=== PATIENT | male | born 1965 | race Caucasian/White ===

== ENCOUNTER 2016-08-14 16:36 | Emergency (ER) | payer SELFPAY ==
--- NOTE | 2016-08-14 17:09 | ER Document Report ---
ED Medical Screen (RME) - General Stated Complaint: LEFT RIB PAIN Notes: 50 yo male c/o left lateral chest wall pain x 2 weeks, worse x 2 days. no fever. no cough. + smoker, + HTN. TRAVEL OUTSIDE OF THE [place] IN LAST 30 DAYS: No - Related Data Allergies/Adverse Reactions: No Known Allergies Allergy (Unverified 02/07/15 22:49) Past Medical History - Past Medical History Cardiac Medical History: Reports: Hx Hypercholesterolemia, Hx Hypertension Pulmonary Medical History: Reports: Hx COPD Musculoskeltal Medical History: Reports Hx Musculoskeletal Trauma Psychiatric Medical History: Reports: Hx Depression Traumatic Medical History: Reports: Hx Fractures - both heels Past Surgical History: Reports: Hx Orthopedic Surgery - bilateral heel surgery, reattached thumb - Immunizations Immunizations up to date: No Hx Diphtheria, Pertussis, Tetanus Vaccination: No Physical Exam - Vital signs Vitals: Temp Pulse Resp BP Pulse Ox 97.6 F 51 L 18 157/88 H 98 08/14/16 16:59 08/14/16 16:59 08/14/16 16:59 08/14/16 16:59 08/14/16 16:59 Course - Vital Signs Vital signs: Temp Pulse Resp BP Pulse Ox 97.6 F 51 L 18 157/88 H 98 08/14/16 16:59 08/14/16 16:59 08/14/16 16:59 08/14/16 16:59 08/14/16 16:59
[2016-08-14] MEDS ORDERED: OXYCODONE-ACETAMINOPHEN 5-325 MG TABLET PO ONE (17:10)
[2016-08-14] MEDS ORDERED: HYDROCODONE/ACETAMINOPHEN 5-325 MG 6 TAB/DSPK PO PRN (19:36)
[2016-08-14] MEDS ORDERED: PREDNISONE 20 MG TABLET PO ONE (19:36)
--- NOTE | 2016-08-14 19:42 | ER Document Report ---
ED General - General Chief Complaint: Rib Pain Stated Complaint: LEFT RIB PAIN Mode of Arrival: Ambulatory Information source: Patient Notes: Patient is 50 yo male who presents with left anterior and lateral chest wall pain that has been present for the past 2 days, that worsened today. Pain is worse with deep inspiration, cough, sneezing. He has tried tylenol and ibuprofen with no relief. He endorses shortness of breath but no difficulty breathing, cough, fever, chills, wheezing. He endorses old injury to ribs years ago but no recent injury. Given percocet in triage which he states did provide some relief. TRAVEL OUTSIDE OF THE [place] IN LAST 30 DAYS: No - Related Data Allergies/Adverse Reactions: No Known Allergies Allergy (Verified 08/14/16 17:08) Past Medical History - Social History Smoking Status: Current Every Day Smoker Family History: Malignancy, DM, Reviewed & Not Pertinent - Past Medical History Cardiac Medical History: Reports: Hx Hypercholesterolemia, Hx Hypertension Pulmonary Medical History: Reports: Hx COPD Renal/ Medical History: Denies: Hx Peritoneal Dialysis Musculoskeltal Medical History: Reports Hx Musculoskeletal Trauma Psychiatric Medical History: Reports: Hx Depression Traumatic Medical History: Reports: Hx Fractures - both heels Past Surgical History: Reports: Hx Orthopedic Surgery - bilateral heel surgery, reattached thumb - Immunizations Immunizations up to date: No Hx Diphtheria, Pertussis, Tetanus Vaccination: No Review of Systems - Review of Systems Constitutional: No symptoms reported EENT: No symptoms reported Cardiovascular: See HPI Respiratory: No symptoms reported Gastrointestinal: No symptoms reported Genitourinary: No symptoms reported Male Genitourinary: No symptoms reported Musculoskeletal: No symptoms reported Skin: No symptoms reported Hematologic/Lymphatic: No symptoms reported Neurological/Psychological: No symptoms reported Physical Exam - Vital signs Vitals: Temp Pulse Resp BP Pulse Ox 97.6 F 51 L 18 157/88 H 98 08/14/16 16:59 08/14/16 16:59 08/14/16 16:59 08/14/16 16:59 08/14/16 16:59 Interpretation: Hypertensive - Notes Notes: PHYSICAL EXAM: CONSTITUTIONAL: Alert and oriented, well-appearing and in no acute distress. HENT: Normocephalic, atraumatic. Moist mucous membranes. HEART: Regular rate and rhythm without murmurs. LUNGS: CTAB and equal. No wheezes, rales or rhonchi. Chest wall tenderness to palpation in left mid-axillary and mid-clavicular line. EXTREMITIES: Normal range of motion, no pitting edema. No cyanosis. Cap Refill < 3 seconds. NEURO: Cranial nerves grossly intact. Normal sensory/motor exams. SKIN: Warm and dry. Normal turgor. No rashes or lesions noted. Course - Re-evaluation Re-evalutation: 08/14/16 19:39 Patient seen and examined. Chest wall tenderness with normal vital signs and no respiratory distress on exam. Lungs CTAB with breath sounds equal throughout. Xray negative for pneumothorax, acute rib or displaced rib fractures. Patient requesting pain medication. Low suspicion for cardiac source of chest pain based on exam. Discussed return precautions, given take-home pain medications and dose of steroids here. Discharged home in stable condition. Follow-up with PMD. Patient verbally agrees, all questions answered. - Vital Signs Vital signs: Temp Pulse Resp BP Pulse Ox 97.6 F 51 L 18 157/88 H 98 08/14/16 16:59 08/14/16 16:59 08/14/16 16:59 08/14/16 16:59 08/14/16 16:59 - Diagnostic Test Radiology reviewed: Image reviewed, Reports reviewed Discharge - Discharge Clinical Impression: Costochondritis, acute, Chest wall pain Condition: Stable Disposition: HOME, SELF-CARE Additional Instructions: Costochondritis Your chest pain is coming from the rib cartilages in the chest wall. This is often caused by subtle straining of the ribs near the breastbone. The strain can occur from a mild injury, coughing or sneezing with a "cold," vigorous vomiting, or even from rib compression while sleeping. Often the pain doesn't begin until a couple of days after the strain. Persons with arthritis are especially prone to this type of pain, due to inflammation of the cartilage joints near the breast bone. But often, there is no clear reason why it happens. Rest from strenuous physical activity. This kind of chest pain is usually made worse by movement of the chest. Depending on the symptoms, we may prescribe medicine for pain and inflammation. Apply gentle warmth to the painful area for 15 minutes every hour or two. You should call contact the doctor immediately if things change. Further evaluation is needed if you develop a fever or cough, if the nature of the pain changes, or if you become short of breath. Oral Narcotic Medication You have been given a prescription for pain control. This medication is a narcotic. It's best taken with food, as nausea can result if taken on an empty stomach. Don't operate machinery or drive within six hours of taking this medication. Do not combine this medicine with alcohol, or with any medication which can cause sedation (such as cold tablets or sleeping pills) unless you get permission from the physician. Narcotics tend to cause constipation. If possible, drink plenty of fluids and eat a diet high in fiber and fruits. STEROID MEDICATION: You have been given a medicine of the cortisone/steroid class. This medication is used to control inflammation or allergy. It is usually only given for a short period of time, until the acute process subsides. There are usually no side effects from short-term use of cortisone-like medications. Some persons feel an increased sense of well-being and are not sleepy at bedtime. Long-term use of cortisone medications is best avoided, unless required for a severe condition. If your condition does not remit, or relapses after the course of corticosteroid medication, you should consult your physician. Return immediately for any new or worsening symptoms. Follow-up with primary care provider, call tomorrow to make followup appointment. Prescriptions: Hydrocodone/Acetaminophen [Vicodin 5-300 mg Tablet] 1 tab PO ASDIR PRN #15 tab PRN Reason: Naproxen [Naprosyn 250 mg Tablet] 500 mg PO DAILY PRN #14 tablet PRN Reason: Prednisone [Deltasone 20 mg Tablet] 3 tab PO DAILY 5 Days Forms: Elevated Blood Pressure
[2016-08-14 20:15] VITALS: BP 158/80
== END 2016-08-14 20:12 | disposition home or self-care (01) ==
LOC: ER 16:36
DX: M94.0 Chondrocostal junction syndrome [Tietze] (principal); R07.89 Other chest pain; R06.02 Shortness of breath; I10 Essential (primary) hypertension; J44.9 Chronic obstructive pulmonary disease, unspecified; F17.200 Nicotine dependence, unspecified, uncomplicated; Z87.828 Personal history of other (healed) physical injury and trauma
CPT/HCPCS: 99283; 71101; J7512

== ENCOUNTER 2016-08-18 12:24 | Emergency (ER) | payer SELFPAY ==
--- NOTE | 2016-08-18 12:32 | ER Document Report ---
ED Medical Screen (RME) - General Stated Complaint: RIB PAIN Mode of Arrival: Ambulatory Information source: Patient Notes: pt presents to the ED with continued left rib pain. Reports he was seen last week dx with costrocondritis. Was treated with anti-inflammatory steroids and pain medication. Reports woke this am with SOB, still having pain. Denies f/v/ d. Also worried about HTN. Left lateral/ant. ribs ttp. No obvious SOB. I have consulted the attending provider per [facility] guidelines I have greeted and performed a rapid initial assessment of this patient. A comprehensive ED assessment and evaluation of the patient, analysis of test results and completion of the medical decision making process will be conducted by additional ED providers. TRAVEL OUTSIDE OF THE [place] IN LAST 30 DAYS: No - Related Data Allergies/Adverse Reactions: No Known Allergies Allergy (Verified 08/18/16 12:32) Past Medical History - Past Medical History Cardiac Medical History: Reports: Hx Hypercholesterolemia, Hx Hypertension Pulmonary Medical History: Reports: Hx COPD Renal/ Medical History: Denies: Hx Peritoneal Dialysis Musculoskeltal Medical History: Reports Hx Musculoskeletal Trauma Psychiatric Medical History: Reports: Hx Depression Traumatic Medical History: Reports: Hx Fractures - both heels Past Surgical History: Reports: Hx Orthopedic Surgery - bilateral heel surgery, reattached thumb - Immunizations Immunizations up to date: No Hx Diphtheria, Pertussis, Tetanus Vaccination: No Physical Exam - Vital signs Vitals: Temp Pulse Resp BP Pulse Ox 98.0 F 60 24 H 155/96 H 97 08/18/16 12:34 08/18/16 12:34 08/18/16 12:34 08/18/16 12:34 08/18/16 12:34 Course - Vital Signs Vital signs: Temp Pulse Resp BP Pulse Ox 98.0 F 60 24 H 155/96 H 97 08/18/16 12:34 08/18/16 12:34 08/18/16 12:34 08/18/16 12:34 08/18/16 12:34
[2016-08-18 13:08] LABS: ABSOLUTE BASOPHILS # (AUTO) 0.1 10^3/uL (0.0-0.2); ABSOLUTE EOSINOPHILS # (AUTO) 0.1 10^3/uL (0.0-0.6); ABSOLUTE LYMPHOCYTES (AUTO) 2.1 10^3/uL (0.5-4.7); ABSOLUTE MONOCYTES (AUTO) 0.8 10^3/uL (0.1-1.4); ABSOLUTE NEUT (AUTO) 10.2 10^3/uL (1.7-8.2); BASOPHILS % (AUTO) 0.4 % (0-2); EOSINOPHILS % (AUTO) 0.5 % (0-6); HEMATOCRIT 42.3 % (37.9-51.0); HEMOGLOBIN 14.2 g/dL (13.5-17.0); HGB HCT DIFFERENCE 0.3; LYMPHOCYTES % (AUTO) 16.2 % (13-45); MEAN CORPUSCULAR HEMOGLOBIN 32.5 pg (27.0-33.4); MEAN CORPUSCULAR HGB CONC 33.7 g/dL (32.0-36.0); MEAN CORPUSCULAR VOLUME 97 fl (80-97); MONOCYTES % (AUTO) 6.4 % (3-13); RED BLOOD COUNT 4.38 10^6/uL (4.35-5.55); RED CELL DISTRIBUTION WIDTH 14.9 % (11.5-14.0); SEGMENTED NEUTROPHILS % (AUTO) 76.5 % (42-78); WHITE BLOOD COUNT 13.3 10^3/uL (4.0-10.5)
[2016-08-18] MEDS ORDERED: KETOROLAC TROMETHAMINE 60 MG/2 ML SDV IM ONE (13:24)
[2016-08-18] MEDS ORDERED: CYCLOBENZAPRINE HCL 10 MG TABLET PO ONE (13:24)
[2016-08-18 13:26] LABS: ALANINE AMINOTRANSFERASE 81 U/L (21-72); ALBUMIN 3.7 g/dL (3.5-5.0); ALKALINE PHOSPHATASE 58 U/L (38-126); ANION GAP 9 (5-19); ASPARTATE AMINO TRANSFERASE 35 U/L (17-59); BILIRUBIN,TOTAL 0.3 mg/dL (0.2-1.3); BLOOD UREA NITROGEN 23 mg/dL (7-20); CALCIUM 9.3 mg/dL (8.4-10.2); CARBON DIOXIDE 29 mmol/L (22-30); CHLORIDE 109 mmol/L (98-107); CREATINE KINASE 35 U/L (55-170); CREATININE RESULT 0.72 mg/dL (0.52-1.25); GLUCOSE 136 mg/dL (75-110); POTASSIUM 4.1 mmol/L (3.6-5.0); SODIUM 146.5 mmol/L (137-145); TOTAL PROTEIN 5.9 g/dL (6.3-8.2)
--- NOTE | 2016-08-18 13:28 | ER Document Report ---
ED General - General Chief Complaint: Rib Pain Stated Complaint: RIB PAIN Mode of Arrival: Ambulatory Information source: Patient Notes: This is a 50 year old male who returns to the ER for re-evaluation of left ribcage pain which has been present for the past week. He was seen here for same on 08/14 and diagnosed with costochondritis, treated with pain meds, naprosyn , and steroids. He states that he awoke today with increased pain to left anterolateral ribcage, and shortness of breath. He is concerned that he may have pneumonia. No fevers, chills. No sputum production. Some pleuritic pain. Area is very tender to the touch per patient. He has run out of his pain medications and does not have a primary physician, and he is requesting more pain medication today. He states that he had a friend given him a "bear hug" last week and he suspects that this may have aggravated an old rib injury on that left side. 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 TRAVEL OUTSIDE OF THE [place] IN LAST 30 DAYS: No - Related Data Allergies/Adverse Reactions: No Known Allergies Allergy (Verified 08/18/16 12:32) Past Medical History - General Information source: Patient - Social History Smoking Status: Current Every Day Smoker Chew tobacco use (# tins/day): No Frequency of alcohol use: None Drug Abuse: None Family History: Malignancy, DM, Reviewed & Not Pertinent Patient has suicidal ideation: No Patient has homicidal ideation: No - Past Medical History Cardiac Medical History: Reports: Hx Hypercholesterolemia, Hx Hypertension Pulmonary Medical History: Reports: Hx COPD Renal/ Medical History: Denies: Hx Peritoneal Dialysis Musculoskeltal Medical History: Reports Hx Musculoskeletal Trauma Psychiatric Medical History: Reports: Hx Depression Traumatic Medical History: Reports: Hx Fractures - both heels Past Surgical History: Reports: Hx Orthopedic Surgery - bilateral heel surgery, reattached thumb - Immunizations Immunizations up to date: No Hx Diphtheria, Pertussis, Tetanus Vaccination: No Review of Systems - Review of Systems Notes: REVIEW OF SYSTEMS: CONSTITUTIONAL : Denies fever, chills, or sweats. Denies recent illness. EENT: Denies eye, ear, throat, or mouth pain or symptoms. Denies nasal or sinus congestion. CARDIOVASCULAR: As per HPI. No palpitations. No syncope/near syncope. RESPIRATORY: Denies cough, cold, or chest congestion. Denies difficulty breathing, or wheezing. Endorses some shortness of breath as per HPI GASTROINTESTINAL: Denies abdominal pain. Denies nausea, vomiting, or diarrhea. Denies constipation. GENITOURINARY: Denies difficulty urinating, painful urination, burning, frequency, or blood in urine. MUSCULOSKELETAL: Denies neck or back pain or joint pain or swelling. SKIN: Denies rash or skin lesions. HEMATOLOGIC : Denies easy bruising or bleeding. LYMPHATIC: Denies swollen, enlarged glands. NEUROLOGICAL: Denies altered mental status or loss of consciousness. Denies headache. PSYCHIATRIC: Denies anxiety or stress or depression. ALL OTHER SYSTEMS REVIEWED AND NEGATIVE. Physical Exam - Vital signs Vitals: Temp Pulse Resp BP Pulse Ox 98.0 F 60 24 H 155/96 H 97 08/18/16 12:34 08/18/16 12:34 08/18/16 12:34 08/18/16 12:34 08/18/16 12:34 - Notes Notes: PHYSICAL EXAMINATION: GENERAL: Well-appearing, well-nourished and in no acute distress. Pleasant and very conversant, no conversational dyspnea HEAD: Atraumatic, normocephalic. EYES: Pupils equal round and reactive to light, extraocular movements intact, sclera anicteric, conjunctiva are normal. ENT: nares patent, oropharynx clear without exudates. Moist mucous membranes. NECK: Normal range of motion, supple without lymphadenopathy LUNGS: Breath sounds clear to auscultation bilaterally and equal. No wheezes rales or rhonchi. HEART: Regular rate and rhythm without murmurs CHEST WALL: No rash or lesions. No erythema or discoloration. No edema or deformity. Exquisite TTP to left lateral ribcage. No crepitus. ABDOMEN: Soft, nontender, normoactive bowel sounds. No guarding, no rebound. No masses appreciated. No LUQ TTP EXTREMITIES: Normal range of motion, no pitting or edema. No cyanosis. NEUROLOGICAL: Cranial nerves grossly intact. Normal speech. No gross focal motor or sensory deficits appreciated PSYCH: Normal mood, somewhat anxious affect SKIN: Warm, Dry, normal turgor, no rashes or lesions noted. Course - Re-evaluation Re-evalutation: 08/18/16 14:25 Patient's history and exam is most consistent with musculoskeletal etiology of chest pain. However he does endorse shortness of breath. He does show some mild tachypnea today. Also this is his second visit in 4 days for the same complaints after being treated with pain medicine steroids in NSAIDs for costochondritis. For these reasons we will proceed with CT of the chest today to rule out underlying infiltrate or PE. I do not feel that his history or exam findings are consistent with a cardiac etiology of chest pain. 08/18/16 15:28 Patient states he would like to just go home and not proceed with CT at this time. I think this is reasonable at this point as he has no conversational dyspnea he has clear lung sounds he is not tachycardic and his tachypnea has resolved. He is requesting more Lortab but I did discuss with him that I would not be refilling his narcotic pain medication today. We did discuss nonnarcotic pain control options and will be discharged with anti-inflammatory medication as well as muscle relaxers. He is instructed to stop smoking and he is instructed to obtain a primary care physician to follow him and to monitor his blood pressure. Strict return precautions were discussed and he is comfortable with this plan. - Vital Signs Vital signs: Temp Pulse Resp BP Pulse Ox 98.0 F 60 24 H 155/96 H 97 08/18/16 12:34 08/18/16 12:34 08/18/16 12:34 08/18/16 12:34 08/18/16 12:34 - Laboratory Result Diagrams: 08/18/16 12:50 08/18/16 12:50 Laboratory results interpreted by me: 08/18/16 08/18/16 12:50 12:50 WBC 13.3 H RDW 14.9 H Absolute Neutrophils 10.2 H Sodium 146.5 H Chloride 109 H BUN 23 H Glucose 136 H ALT 81 H Creatine Kinase 35 L Total Protein 5.9 L - EKG Interpretation by Me Additional EKG results interpreted by me: 08/18/16 14:25 EKG at 1144 reviewed by me. EKG demonstrates sinus bradycardia with a rate of 46. QRS and QTC intervals are normal. I see no ischemic T-wave changes and there are no ST elevations or depressions. Discharge - Discharge Clinical Impression: Acute costochondritis, Elevated blood pressure reading Condition: Stable Disposition: HOME, SELF-CARE Additional Instructions: Costochondritis Your chest pain is coming from the rib cartilages in the chest wall. This is often caused by subtle straining of the ribs near the breastbone. The strain can occur from a mild injury, coughing or sneezing with a "cold," vigorous vomiting, or even from rib compression while sleeping. Often the pain doesn't begin until a couple of days after the strain. Persons with arthritis are especially prone to this type of pain, due to inflammation of the cartilage joints near the breast bone. But often, there is no clear reason why it happens. Rest from strenuous physical activity. This kind of chest pain is usually made worse by movement of the chest. Depending on the symptoms, we may prescribe medicine for pain and inflammation. Apply gentle warmth to the painful area for 15 minutes every hour or two. You should call contact the doctor immediately if things change. Further evaluation is needed if you develop a fever or cough, if the nature of the pain changes, or if you become short of breath. Muscle Relaxers Muscle relaxing medications are usually prescribed for acute muscle spasm or injury to the neck and back. They are often combined with antiinflammatory pain medication for increased relief. You may stop the muscle relaxer when the pain and stiffness have improved. Start the medication again if spasms recur. Muscle relaxers may cause drowsiness, especially with the first dose. Do not operate machinery or drive while under the effects of the medication. Most muscle relaxers last up to 24 hours. Do not combine the medication with alcohol. Pre-hypertension/Hypertension: The patient has been informed that they may have pre-hypertension or Hypertension based on a blood pressure reading in the emergency department. I recommend that the patient call the primary care provider listed on their dischargge instructions or a physician of their choice this wee to arrage follow up for further evaluation of possible pre- hypertension or Hypertension. If left untreated, high blood pressure greatly increases your risk of heart attack and stroke. Please don't ignore this problem. If you have blood pressure medicine but aren't using it regularly, start taking it again. Some simple things you can do to help are: Get some aerobic exercise for at least 20 minutes on a daily basis. (See your doctor before beginning any new exercise program.) Eat a low-fat diet. Lose excess weight. Avoid salty foods and avoid adding salt to any of the foods you eat. Avoid diet pills, decongestants, "energizing" herbs, and other medicines that elevate blood pressure. There are many different medicines that treat blood pressure. If your medication causes unpleasant side effects, call your doctor. There are others you can try. Treating hypertension is a life-long investment in your health. Prescriptions: Cyclobenzaprine HCl [Flexeril 10 mg Tablet] 10 mg PO TIDP PRN #15 tab PRN Reason: Tramadol HCl [Ultram 50 mg Tablet] 50 mg PO ASDIR PRN #12 tablet PRN Reason: Forms: Smoking Cessation Education, Elevated Blood Pressure
[2016-08-18] MEDS ORDERED: HYDROCODONE/ACETAMINOPHEN 5-325 MG TABLET PO ONE (14:19)
[2016-08-18 15:49] VITALS: BP 151/86
--- NOTE | 2016-08-18 20:15 | EKG REPORT ---
SEVERITY:- OTHERWISE NORMAL ECG - SINUS BRADYCARDIA : Confirmed by: Adele Moore 18-Aug-2016 20:15:04
== END 2016-08-18 15:49 | disposition home or self-care (01) ==
LOC: ER 12:24
DX: M94.0 Chondrocostal junction syndrome [Tietze] (principal); R07.81 Pleurodynia; J44.9 Chronic obstructive pulmonary disease, unspecified; R06.02 Shortness of breath; F17.200 Nicotine dependence, unspecified, uncomplicated; I10 Essential (primary) hypertension; R00.1 Bradycardia, unspecified
CPT/HCPCS: 93005; 99284; 96372; 36415; 82550; 85025; 80053; 71020; 93010; J1885

== ENCOUNTER 2016-08-21 08:52 | Emergency (ER) | payer SELFPAY ==
[2016-08-21] MEDS ORDERED: DIPH/PERTUSS(ACELL)/TETANUS VAC/PF 0.5 ML SYR (>=10YO) IM ONE (09:42)
[2016-08-21] MEDS ORDERED: HYDROCODONE/ACETAMINOPHEN 5-325 MG TABLET PO ONE (09:42)
[2016-08-21] MEDS ORDERED: CEPHALEXIN 500 MG CAPSULE PO ONE (09:43)
--- NOTE | 2016-08-21 09:44 | ER Document Report ---
HPI - HPI Patient complains to provider of: right second finger pain Onset: Yesterday Onset/Duration: Gradual Quality of pain: Achy Pain Level: 3 Context: Patient states that he started to develop painful swollen finger yesterday. Patient states that he squeezed on his right second finger and was able to remove to wooden splinters from his hand. 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 Patient additionally states that he was lifting heavy cement and developed right wrist tenderness after heavy lifting. Patient denies any fever. Patient is right- hand dominant. Associated Symptoms: Other - Right second finger pain. denies: Fever Exacerbated by: Movement Relieved by: Denies Similar symptoms previously: No Recently seen / treated by doctor: Yes - ROS ROS below otherwise negative: Yes Systems Reviewed and Negative: Yes All other systems reviewed and negative - CONSTITUTIONAL Constitutional: DENIES: Fever, Chills - NEURO Neurology: DENIES: Headache, Weakness - GASTROINTESTINAL Gastrointestinal: DENIES: Nausea - MUSCULOSKELETAL Musculoskeletal: REPORTS: Extremity pain - Right wrist, right second fing, Swelling - Right second finger - DERM Skin Color: Normal Skin Problems: Puncture Wound Past Medical History - General Information source: Patient - Social History Smoking Status: Current Every Day Smoker Chew tobacco use (# tins/day): No Frequency of alcohol use: None Drug Abuse: None Occupation: construction Lives with: Family Family History: Malignancy, DM, Reviewed & Not Pertinent Patient has suicidal ideation: No Patient has homicidal ideation: No - Past Medical History Cardiac Medical History: Reports: Hx Hypercholesterolemia, Hx Hypertension Pulmonary Medical History: Reports: Hx COPD Renal/ Medical History: Denies: Hx Peritoneal Dialysis Musculoskeltal Medical History: Reports Hx Musculoskeletal Trauma Psychiatric Medical History: Reports: Hx Depression Traumatic Medical History: Reports: Hx Fractures - both heels Past Surgical History: Reports: Hx Orthopedic Surgery - bilateral heel surgery, reattached thumb - Immunizations Immunizations up to date: No Hx Diphtheria, Pertussis, Tetanus Vaccination: No Vertical Provider Document - CONSTITUTIONAL Agree With Documented VS: Yes Exam Limitations: No Limitations General Appearance: WD/WN, No Apparent Distress - INFECTION CONTROL TRAVEL OUTSIDE OF THE [place] IN LAST 30 DAYS: No - HEENT HEENT: Atraumatic, Normocephalic - NECK Neck: Normal Inspection - RESPIRATORY Respiratory: No Respiratory Distress - CARDIOVASCULAR Pulses: Normal: Radial - MUSCULOSKELETAL/EXTREMETIES Musculoskeletal/Extremeties: ORLANDOSURI, Tender - Patient with tenderness along the volar aspect of right second finger PIP joint. Patient with overlying puncture wound and faint erythema. Patient with 1+ edema to right second digit. Patient with normal range of motion and strength to right second finger Notes: Patient with tenderness to right wrist overlying right distal radius. Normal skin color and temperature overlying this area. Tenderness increases with flexion and extension of right wrist. No deformity, no overt swelling - NEURO Level of Consciousness: Awake, Alert, Appropriate Motor/Sensory: No Motor Deficit, No Sensory Deficit - DERM Integumentary: Warm, Dry Course - Re-evaluation Re-evalutation: 08/21/16 09:[address] Fields, Dr. Fields to bedside for examination. Recommends ultrasound imaging of the extremity and coverage with Keflex for infection. Recommends outpatient warm soaks and follow-up with orthopedic DrOralia for any continued problems - Diagnostic Test Radiology reviewed: Reports reviewed Discharge - Discharge Clinical Impression: Tendonitis Cellulitis Qualifiers: Site of cellulitis: extremity Site of cellulitis of extremity: upper extremity Laterality: right Qualified Code(s): L03.113 - Cellulitis of right upper limb Condition: Stable Disposition: HOME, SELF-CARE Additional Instructions: Return immediately for any new or worsening symptoms Followup with your primary care provider, call tomorrow to make a followup appointment Follow up with orthopedic DrOralia for any continued pain or problems Soak hand frequently in warm soapy water Your blood pressure was elevated today, your primary doctor can get you started back on your medications, call them tomorrow for follow-up appointment. CELLULITIS: You have an infection of your skin and underlying soft tissues called cellulitis. This is due to bacteria, which can enter through any break in the skin, or even through an irritated hair follicle. Untreated, cellulitis will usually worsen. Antibiotics are required. Usually, warm packs or warm soaks, and elevation of the infected area are recommended. You should start getting better within 24 to 36 hours. Most infections respond quickly to the right medication. Follow-up care is important, however, to check for abscess (boil) formation, unsuspected foreign body, or resistant infection. If you develop fever, chills, or if the area of infection is becoming rapidly more swollen or painful, call the doctor at once. ANTIBIOTIC THERAPY: You have been given an antibiotic prescription. It's important that you take all the medication, unless instructed otherwise by your physician. Failure to complete the entire course can result in relapse of your condition. Common side effects of antibiotics include nausea, intestinal cramping, or diarrhea. Women may develop vaginal yeast infections, and babies can get yeast (thrush) in the mouth following the use of antibiotics. Contact your physician if you develop significant side effects from this medication. Allergy to this antibiotic can result in hives, wheezing, faintness, or itching. If symptoms of allergy occur, stop the medication and call the doctor. ORAL NARCOTIC MEDICATION: You have been given a prescription for pain control. This medication is a narcotic. It's best taken with food, as nausea can result if taken on an empty stomach. Don't operate machinery or drive within six hours of taking this medication. Do not combine this medicine with alcohol, or with any medication which can cause sedation (such as cold tablets or sleeping pills) unless you get permission from the physician. Narcotics tend to cause constipation. If possible, drink plenty of fluids and eat a diet high in fiber and fruits. Please be aware that prescription narcotics also have the potential for abuse. People become addicted to these medications because of the general sense of wellbeing that they induce. This feeling along with a significant reduction in tension, anxiety, and aggression provides a stimulating seductive quality to these drugs. Once your pain is under control, we encourage you to discard your unused narcotics. FOLLOW-UP CARE: If you have been referred to a physician for follow-up care, call the physician s office for an appointment as you were instructed or within the next two days. If you experience worsening or a significant change in your symptoms, notify the physician immediately or return to the Emergency Department at any time for re-evaluation. Prescriptions: Cephalexin Monohydrate [Keflex 500 mg Capsule] 500 mg PO Q6H 7 Days Hydrocodone/Acetaminophen [[place] 5-325 Tablet] 1 each PO Q4 PRN #12 tablet PRN Reason: Forms: Return to Work, Elevated Blood Pressure Referrals: [facility] [Provider Group] - Follow up as needed [facility] [Provider Group] - Follow up as needed [facility] [Provider Group] - Follow up tomorrow
[2016-08-21 11:27] VITALS: BP 145/80
== END 2016-08-21 11:26 | disposition home or self-care (01) ==
LOC: ER 08:52
DX: S61.230A Puncture wound without foreign body of right index finger without damage to nail, initial encounter (principal); L03.113 Cellulitis of right upper limb; X58.XXXA Exposure to other specified factors, initial encounter; M77.9 Enthesopathy, unspecified; M25.531 Pain in right wrist; X50.0XXA Overexertion from strenuous movement or load, initial encounter; I10 Essential (primary) hypertension; J44.9 Chronic obstructive pulmonary disease, unspecified; F17.200 Nicotine dependence, unspecified, uncomplicated
CPT/HCPCS: 76882; 90471; 90715; 99283

== ENCOUNTER 2016-09-15 14:03 | Emergency (ER) | payer SELFPAY ==
[2016-09-15] MEDS ORDERED: LIDOCAINE 5% (700 MG) TRANSDERMAL ADH..PATCH TP ONE (14:50)
[2016-09-15 15:59] VITALS: BP 144/89
--- NOTE | 2016-09-15 16:25 | ER Document Report ---
ED General - General Chief Complaint: Rib Pain Stated Complaint: RIB PAIN TRAVEL OUTSIDE OF THE [place] IN LAST 30 DAYS: No - HPI Patient complains to provider of: left rib pain Notes: Chronic left for pain ongoing for a month acute injury recently when patient was given a bear hug by his friend. Patient denies any other complaints. Patient is also concerned about his blood pressure state has been reading high several doctor's visits and will be started on medication. Patient denies any shortness of breath nausea vomiting dizziness. - Related Data Allergies/Adverse Reactions: No Known Allergies Allergy (Verified 09/15/16 14:08) Past Medical History - Social History Smoking Status: Current Every Day Smoker Chew tobacco use (# tins/day): - 30 Frequency of alcohol use: None Drug Abuse: None Family History: Malignancy, DM, Reviewed & Not Pertinent Patient has suicidal ideation: No Patient has homicidal ideation: No - Past Medical History Cardiac Medical History: Reports: Hx Hypercholesterolemia, Hx Hypertension Pulmonary Medical History: Reports: Hx COPD Renal/ Medical History: Denies: Hx Peritoneal Dialysis Musculoskeltal Medical History: Reports Hx Musculoskeletal Trauma Psychiatric Medical History: Reports: Hx Depression Traumatic Medical History: Reports: Hx Fractures - both heels Past Surgical History: Reports: Hx Orthopedic Surgery - bilateral heel surgery, reattached thumb - Immunizations Immunizations up to date: No Hx Diphtheria, Pertussis, Tetanus Vaccination: No Review of Systems - Review of Systems Constitutional: No symptoms reported EENT: No symptoms reported Cardiovascular: Other - Rib pain Respiratory: No symptoms reported Gastrointestinal: No symptoms reported Genitourinary: No symptoms reported Male Genitourinary: No symptoms reported Musculoskeletal: No symptoms reported Skin: No symptoms reported Hematologic/Lymphatic: No symptoms reported Neurological/Psychological: No symptoms reported -: Yes All other systems reviewed and negative Physical Exam - Vital signs Vitals: Temp Pulse Resp BP Pulse Ox 98.3 F 71 13 159/93 H 97 09/15/16 14:06 09/15/16 14:06 09/15/16 14:06 09/15/16 14:06 09/15/16 14:06 Interpretation: Normal - General General appearance: Appears well, Alert - HEENT Head: Normocephalic, Atraumatic Eyes: Normal Pupils: PERRL - Respiratory Respiratory status: No respiratory distress Chest status: Tender - Tenderness to palpation of ribs #6 and 7 lateral side of the left chest. No other areas of tenderness or pain. No signs of trauma Breath sounds: Normal Chest palpation: Normal - Cardiovascular Rhythm: Regular Heart sounds: Normal auscultation Murmur: No - Abdominal Inspection: Normal Distension: No distension Bowel sounds: Normal Tenderness: Nontender Organomegaly: No organomegaly - Back Back: Normal, Nontender - Extremities General upper extremity: Normal inspection, Nontender, Normal color, Normal ROM , Normal temperature General lower extremity: Normal inspection, Nontender, Normal color, Normal ROM , Normal temperature, Normal weight bearing. No: Angella's sign - Neurological Neuro grossly intact: Yes Cognition: Normal Orientation: AAOx4 Rolanda Coma Scale Eye Opening: Spontaneous Rolanda Coma Scale Verbal: Oriented Rolanda Coma Scale Motor: Obeys Commands [place] Coma Scale Total: 15 Speech: Normal Motor strength normal: LUE, RUE, LLE, RLE Sensory: Normal - Psychological Associated symptoms: Normal affect, Normal mood - Skin Skin Temperature: Warm Skin Moisture: Dry Skin Color: Normal Course - Re-evaluation Re-evalutation: 09/15/16 16:26 X-rays negative. Patient's narcotic database does show the patient received Salix's on August 15 tramadol on August 18 Vicodin on August 21 and Vicodin on September 04. Explained to patient that this is concerning will give the patient some tramadol and Neurontin as patient may have a neuroma. Explained to patient that he has chronic condition will need follow-up her primary care physician for further evaluation. Also stated to patient he will need a follow- up primary care physician for further evaluation of his blood pressure. No other interval etiology seen patient will be discharged home - Vital Signs Vital signs: Temp Pulse Resp BP Pulse Ox 98 F 59 L 20 144/89 H 98 09/15/16 15:59 09/15/16 15:59 09/15/16 15:59 09/15/16 15:59 09/15/16 15:59 Discharge - Discharge Clinical Impression: Rib contusion Qualifiers: Encounter type: initial encounter Laterality: left Qualified Code(s): S20.212A - Contusion of left front wall of thorax, initial encounter Condition: Good Disposition: HOME, SELF-CARE Instructions: Rib Contusion ([facility]), Rib Injuries and Fractures ([facility]), Chronic Pain Control ([facility]) Additional Instructions: Please take medication as prescribed. These follow-up with your primary care physician or physicians provided to further manage her elevated blood pressure. Prescriptions: Gabapentin [Neurontin 100 mg Capsule] 100 mg PO Q12 #60 capsule Tramadol HCl [Ultram 50 mg Tablet] 50 mg PO ASDIR PRN #20 tablet PRN Reason: Forms: Elevated Blood Pressure Referrals: ANTOLIN HUSTON MD [Primary Care Provider] - Follow up in 3-5 days
== END 2016-09-15 16:10 | disposition home or self-care (01) ==
LOC: ER 14:03
DX: S20.212A Contusion of left front wall of thorax, initial encounter (principal); X58.XXXA Exposure to other specified factors, initial encounter; F17.200 Nicotine dependence, unspecified, uncomplicated; I10 Essential (primary) hypertension; J44.9 Chronic obstructive pulmonary disease, unspecified
CPT/HCPCS: 99283

== ENCOUNTER 2016-12-08 12:40 | Emergency (ER) | payer SELFPAY ==
--- NOTE | 2016-12-08 13:05 | ER Document Report ---
ED GI/ - General Chief Complaint: STD Exposure Stated Complaint: POSSIBLE RASH Time Seen by Provider: 12/08/16 12:50 Mode of Arrival: Ambulatory Information source: Patient TRAVEL OUTSIDE OF THE [place] IN LAST 30 DAYS: No - HPI Patient complains to provider of: Other - penile discharge Timing/Duration: Sudden Quality of pain: Achy Pain Level: 1 Sexual history: New partner, Unprotected intercourse Associated symptoms: Penile discharge Exacerbated by: Denies Relieved by: Denies Similar symptoms previously: No Recently seen / treated by doctor: No Notes: 12/08/16 14:22 Patient is a 50-year-old male who presents to the emergency room complaining of rash to the groin area with creamy white penile discharge that he noted today, denies dysuria or hematuria, no nausea, vomiting or diarrhea, no history of similar symptoms previously, he does report a new sexual partner that he had unprotected sex with over the past few months - Related Data Allergies/Adverse Reactions: No Known Allergies Allergy (Verified 12/08/16 12:45) Past Medical History - General Information source: Patient - Social History Smoking Status: Current Every Day Smoker Family History: Malignancy, DM, Reviewed & Not Pertinent Patient has suicidal ideation: No Patient has homicidal ideation: No - Past Medical History Cardiac Medical History: Reports: Hx Hypercholesterolemia, Hx Hypertension Pulmonary Medical History: Reports: Hx COPD Renal/ Medical History: Denies: Hx Peritoneal Dialysis Musculoskeltal Medical History: Reports Hx Musculoskeletal Trauma Psychiatric Medical History: Reports: Hx Depression Traumatic Medical History: Reports: Hx Fractures - both heels Past Surgical History: Reports: Hx Orthopedic Surgery - bilateral heel surgery, reattached thumb - Immunizations Immunizations up to date: No Hx Diphtheria, Pertussis, Tetanus Vaccination: No Review of Systems - Review of Systems Constitutional: No symptoms reported EENT: No symptoms reported Cardiovascular: No symptoms reported Respiratory: No symptoms reported Gastrointestinal: No symptoms reported Genitourinary: No symptoms reported Male Genitourinary: Penile discharge Musculoskeletal: No symptoms reported Skin: See HPI Hematologic/Lymphatic: No symptoms reported Neurological/Psychological: No symptoms reported -: Yes All other systems reviewed and negative Physical Exam - Vital signs Vitals: Temp Pulse Resp BP Pulse Ox 98.6 F 65 18 182/95 H 97 12/08/16 12:45 12/08/16 12:45 12/08/16 12:45 12/08/16 12:45 12/08/16 12:45 - Notes Notes: - General General appearance: Appears well, Alert In distress: None - HEENT Head: Normocephalic, Atraumatic Eyes: Normal Conjunctiva: Normal Extraocular movements intact: Yes Eyelashes: Normal Pupils: PERRL - Respiratory Respiratory status: No respiratory distress - Cardiovascular Rhythm: Regular - Abdominal Inspection: Normal - Back Back: Normal - Extremities General upper extremity: Normal inspection General lower extremity: Normal inspection - Neurological Neuro grossly intact: Yes Orientation: AAOx4 Percival Coma Scale Eye Opening: Spontaneous Percival Coma Scale Verbal: Oriented Rolanda Coma Scale Motor: Obeys Commands Rolanda Coma Scale Total: 15 - Psychological Associated symptoms: Normal affect, Normal mood - Skin Skin Temperature: Warm Skin Moisture: Dry Skin Color: Normal - Genitourinary Inspection: Normal. No: Blood at meatus, Penile discharge Scrotum: Normal - Skin Location of irregularity: Other - Bilateral upper leg with erythematous, slightly indurated rash, no vesicles, no drainage, no tenderness Course - Re-evaluation Re-evalutation: 12/08/16 14:46 Laboratory results were discussed with patient at bedside which were positive for gonorrhea, patient was appropriately treated and advised to have any partners tested and treated prior to resuming intercourse, patient was provided with a list of mental health providers in the area as well as he reports increased stressors and anxiety, he was advised to return if any additional concerns, patient acknowledges understanding and agreement with this plan - Vital Signs Vital signs: Temp Pulse Resp BP Pulse Ox 98.6 F 65 18 182/95 H 97 12/08/16 12:45 12/08/16 12:45 12/08/16 12:45 12/08/16 12:45 12/08/16 12:45 - Laboratory Laboratory results interpreted by me: 12/08/16 12:50 N.gonorrhoeae DNA (PCR) DETECTED H Discharge - Discharge Clinical Impression: Gonorrhea Condition: Stable Instructions: Gonorrhea ([facility]) Additional Instructions: Follow up with your primary care provider in one to 2 days. Return to the emergency room immediately if symptoms worsen or any additional concerns. All sexual partners tested and treated prior to resuming sexual intercourse. Always practice safe sex and use a condom. Prescriptions: Clotrimazole [Itch Relief] 15 gm TP BID #1 cream..g.
[2016-12-08 14:38] LABS: CHLAM PCR NOT DETECTED (NOT DETECT)
[2016-12-08] MEDS ORDERED: AZITHROMYCIN 250 MG TABLET PO ONE (14:46)
[2016-12-08] MEDS ORDERED: CEFTRIAXONE INJ 250 MG VIAL IM ONE (14:46)
[2016-12-08 15:20] VITALS: BP 171/92
== END 2016-12-08 15:24 | disposition home or self-care (01) ==
LOC: ER 12:40
DX: A54.9 Gonococcal infection, unspecified (principal); R21 Rash and other nonspecific skin eruption; I10 Essential (primary) hypertension; J44.9 Chronic obstructive pulmonary disease, unspecified; F17.200 Nicotine dependence, unspecified, uncomplicated
CPT/HCPCS: 99283; 96372; 87491; 87591; J0696

== ENCOUNTER 2016-12-14 04:49 | Emergency (ER) | payer SELFPAY ==
--- NOTE | 2016-12-14 06:49 | ER Document Report ---
ED General - General Chief Complaint: STD Exposure Stated Complaint: POSSIBLE STD Time Seen by Provider: 12/14/16 06:10 Mode of Arrival: Ambulatory Information source: Patient Notes: 50-year-old male who is diagnosed with gonorrhea 6 days ago and treated at that time presents with complaints that he was looking online and believes that he may have a resistant strain of gonorrhea and that it may be taking over his whole body. Patient also notes that he is quite stressed out TRAVEL OUTSIDE OF THE [place] IN LAST 30 DAYS: No - HPI Onset: Last week Onset/Duration: Persistent Quality of pain: No pain Severity: Mild Pain Level: Denies Associated symptoms: Other Exacerbated by: Denies Relieved by: Denies Similar symptoms previously: Yes Recently seen / treated by doctor: Yes - Related Data Allergies/Adverse Reactions: No Known Allergies Allergy (Verified 12/08/16 12:45) Past Medical History - Social History Smoking Status: Current Every Day Smoker Cigarette use (# per day): Yes Chew tobacco use (# tins/day): No Smoking Education Provided: No Family History: Malignancy, DM, Reviewed & Not Pertinent Patient has suicidal ideation: No Patient has homicidal ideation: No - Past Medical History Cardiac Medical History: Reports: Hx Hypercholesterolemia, Hx Hypertension Pulmonary Medical History: Reports: Hx COPD Renal/ Medical History: Denies: Hx Peritoneal Dialysis Musculoskeltal Medical History: Reports Hx Musculoskeletal Trauma Psychiatric Medical History: Reports: Hx Depression Traumatic Medical History: Reports: Hx Fractures - both heels Past Surgical History: Reports: Hx Orthopedic Surgery - bilateral heel surgery, reattached thumb - Immunizations Immunizations up to date: No Hx Diphtheria, Pertussis, Tetanus Vaccination: No Review of Systems - Review of Systems Notes: REVIEW OF SYSTEMS: CONSTITUTIONAL : Denies fever, chills, or sweats. Denies recent illness. EENT: Denies eye, ear, throat, or mouth pain or symptoms. Denies nasal or sinus congestion or discharge. Denies throat, tongue, or mouth swelling or difficulty swallowing. CARDIOVASCULAR: Denies chest pain. Denies palpitations or racing or irregular heart beat. Denies ankle edema. RESPIRATORY: Denies cough, cold, or chest congestion. Denies shortness of breath, difficulty breathing, or wheezing. GASTROINTESTINAL: Denies abdominal pain or distention. Denies nausea, vomiting , or diarrhea. Denies blood in vomitus, stools, or per rectum. Denies black, tarry stools. Denies constipation. GENITOURINARY: Denies difficulty urinating, painful urination, burning, frequency, blood in urine, or discharge. MUSCULOSKELETAL: Denies back or neck pain or stiffness. Denies joint pain or swelling. SKIN: Denies rash, lesions or sores. HEMATOLOGIC : Denies easy bruising or bleeding. LYMPHATIC: Denies swollen, enlarged glands. NEUROLOGICAL: Denies confusion or altered mental status. Denies passing out or loss of consciousness. Denies dizziness or lightheadedness. Denies headache. Denies weakness or paralysis or loss of use of either side. Denies problems with gait or speech. Denies sensory loss, numbness, or tingling. Denies seizures. PSYCHIATRIC: Admits to stress ALL OTHER SYSTEMS REVIEWED AND NEGATIVE. Dictation was performed using iCAD voice recognition software PHYSICAL EXAMINATION: GENERAL: Well-appearing, well-nourished and in no acute distress. HEAD: Atraumatic, normocephalic. EYES: Pupils equal round and reactive to light, extraocular movements intact, sclera anicteric, conjunctiva are normal. ENT: Nares patent, oropharynx clear without exudates. Moist mucous membranes. NECK: Normal range of motion, supple without lymphadenopathy LUNGS: Breath sounds clear to auscultation bilaterally and equal. No wheezes rales or rhonchi. HEART: Regular rate and rhythm without murmurs ABDOMEN: Soft, nontender, nondistended abdomen. No guarding, no rebound. No masses appreciated. Musculoskeletal: Normal range of motion, no pitting or edema. No cyanosis. NEUROLOGICAL: Cranial nerves grossly intact. Normal speech, normal gait. Normal sensory, motor exams PSYCH: Very anxious SKIN: Warm, Dry, normal turgor, no rashes or lesions noted. Physical Exam - Vital signs Vitals: Temp Pulse Resp BP Pulse Ox 98.5 F 70 18 162/97 H 97 12/14/16 04:52 12/14/16 04:52 12/14/16 04:52 12/14/16 04:52 12/14/16 04:52 Course - Re-evaluation Re-evalutation: 12/14/16 08:26 Patient's physical examination noted no significant abnormality, patient is concerned that the gonorrhea has spread throughout his body, GC chlamydia was negative patient has been treated appropriately he has no life-threatening issues noted, he is quite anxious and will be treated for his anxiety After performing a Medical Screening Examination, I estimate there is LOW risk for ACUTE APPENDICITIS, BOWEL OBSTRUCTION, ACUTE CHOLECYSTITIS, PERFORATED DIVERTICULITIS, INCARCERATED HERNIA, PANCREATITIS, or PERFORATED ULCER, thus I consider the discharge disposition reasonable. Also, there is no evidence or peritonitis, sepsis, or toxicity. I have reevaluated this patient multiple times and no significant life threatening changes are noted. The patient and I have discussed the diagnosis and risks, and we agree with discharging home with close follow-up with the understanding that symptoms and presentations can change. We also discussed returning to the Emergency Department immediately if new or worsening symptoms occur. We have discussed the symptoms which are most concerning (e.g., bloody stool, fever, changing or worsening pain, intractable vomiting - standard verbal up date) that necessitate immediate return. - Vital Signs Vital signs: Temp Pulse Resp BP Pulse Ox 98.5 F 70 20 148/88 H 99 12/14/16 04:52 12/14/16 06:53 12/14/16 06:53 12/14/16 06:53 12/14/16 06:53 Discharge - Discharge Clinical Impression: STD exposure, Anxiety Condition: Stable Disposition: HOME, SELF-CARE Instructions: Gonorrhea ([facility]) Prescriptions: Lorazepam [Ativan 0.5 mg Tablet] 0.5 mg PO Q4 PRN #14 tab PRN Reason: Referrals: [facility] DEPT,[facility] [NO LOCAL MD] - Follow up in 1 week
[2016-12-14 06:55] VITALS: BP 148/88
[2016-12-14 08:00] LABS: CHLAM PCR NOT DETECTED (NOT DETECT)
== END 2016-12-14 06:54 | disposition home or self-care (01) ==
LOC: ER 04:49
DX: Z09 Encounter for follow-up examination after completed treatment for conditions other than malignant neoplasm (principal); Z86.19 Personal history of other infectious and parasitic diseases; F41.9 Anxiety disorder, unspecified; F17.210 Nicotine dependence, cigarettes, uncomplicated; I10 Essential (primary) hypertension; J44.9 Chronic obstructive pulmonary disease, unspecified
CPT/HCPCS: 87491; 87591; 99283

== ENCOUNTER 2016-12-18 17:44 | Emergency (ER) | payer SELFPAY ==
--- NOTE | 2016-12-18 20:36 | ER Document Report ---
HPI - HPI Onset: Other - more than 1 week Onset/Duration: Waxing and waning Quality of pain: Burning Pain Level: 3 Associated Symptoms: None Exacerbated by: Denies Relieved by: Denies Notes: Patient was seen on December 08 for symptoms consistent with urethritis. Patient has a positive GC test that time. Patient was appropriately treated. Patient then came back on December 14 because he was concerned that he had a resistant and/ or systemic gonorrhea infection. Repeat GC test was negative. There was no indication of any systemic infection then. Patient returns today continuing to be concerned about this exposure to GC. Patient reports continued dysuria. No fevers or chills. No nausea vomiting. 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 Patient also complains of a headache. Patient denies any further sexual activity after his initial diagnosis. Patient does appear to be quite anxious about his GC exposure. - DERM Skin Color: Normal Past Medical History - General Information source: Patient, [facility] Records - Social History Smoking Status: Current Every Day Smoker Family History: Malignancy, DM, Reviewed & Not Pertinent Patient has suicidal ideation: No Patient has homicidal ideation: No - Past Medical History Cardiac Medical History: Reports: Hx Hypercholesterolemia, Hx Hypertension Pulmonary Medical History: Reports: Hx COPD Renal/ Medical History: Denies: Hx Peritoneal Dialysis Musculoskeltal Medical History: Reports Hx Musculoskeletal Trauma Psychiatric Medical History: Reports: Hx Depression Traumatic Medical History: Reports: Hx Fractures - both heels Past Surgical History: Reports: Hx Orthopedic Surgery - bilateral heel surgery, reattached thumb - Immunizations Immunizations up to date: No Hx Diphtheria, Pertussis, Tetanus Vaccination: No Vertical Provider Document - CONSTITUTIONAL Agree With Documented VS: Yes Exam Limitations: No Limitations General Appearance: WD/WN, No Apparent Distress - INFECTION CONTROL TRAVEL OUTSIDE OF THE [place] IN LAST 30 DAYS: No - HEENT HEENT: Normocephalic. negative: Conjuctival Injection - NECK Neck: Normal Inspection - RESPIRATORY Respiratory: Breath Sounds Normal O2 Sat by Pulse Oximetry: 95 - CARDIOVASCULAR Cardiovascular: Regular Rate - GI/ABDOMEN Gastrointestinal: Abdomen Soft, Abdomen Non-Tender, Normal Bowel Sounds - REPRODUCTIVE Notes: Circumcised male, no penile discharge, very mild urethral erythema - BACK Back: Normal Inspection - MUSCULOSKELETAL/EXTREMETIES Musculoskeletal/Extremeties: MAEW, FROM, Non-Tender - NEURO Level of Consciousness: Awake, Alert, Appropriate - DERM Integumentary: Warm, Dry, No Rash Course - Re-evaluation Re-evalutation: 12/18/16 20:35 We will check urine. Discussed need for urology follow-up for any further problems. Final disposition will be per ER physician in the treatment area. - Vital Signs Vital signs: Temp Pulse Resp BP Pulse Ox 97.5 F 79 20 148/91 H 95 12/18/16 17:55 12/18/16 17:55 12/18/16 17:55 12/18/16 17:55 12/18/16 17:55
[2016-12-18] MEDS ORDERED: LIDOCAINE 4%/TETRACAINE 0.5%/EPI 0.18% 5 ML TOPICAL SOLN TOP ONE (21:13)
[2016-12-18 21:15] LABS: AMORPHOUS SEDIMENT,URINE TRACE /HPF; APPEARANCE,URINE SLIGHTLY-CLOUDY; BILIRUBIN,URINE NEGATIVE (NEGATIVE); GLUCOSE, URINE NEGATIVE (NEGATIVE); KETONES,URINE NEGATIVE (NEGATIVE); LEUKOCYTE ESTERASE,URINE NEGATIVE (NEGATIVE); NITRITE,URINE NEGATIVE (NEGATIVE); PROTEIN,URINE NEGATIVE (NEGATIVE); URINE SPECIFIC GRAVITY 1.031
--- NOTE | 2016-12-18 21:15 | ER Document Report ---
ED General - General Chief Complaint: Abdominal Pain Stated Complaint: STD CHECK Time Seen by Provider: 12/18/16 20:27 Notes: Patient is a 50-year-old male who comes emergency department for chief complaint of intermittent discomfort with urination and also a possible boil in his left groin area. He states he squeezed white pus out of it yesterday. He states that it has grown since yesterday. Patient was seen initially for dysuria on December 08, had a positive gonorrhea test at that time, was treated, came back on December 14 and was negative, he states he has anxiety about this and has difficulty sleeping ever since. He denies rash, fever, joint pain, visual changes. He denies nausea or vomiting he denies abdominal pain. Patient states he has not been sexually active since his diagnosis on December 08. TRAVEL OUTSIDE OF THE [place] IN LAST 30 DAYS: No - Related Data Allergies/Adverse Reactions: No Known Allergies Allergy (Verified 12/18/16 17:54) Past Medical History - General Information source: Patient, [facility] Records - Social History Smoking Status: Current Every Day Smoker Chew tobacco use (# tins/day): No Frequency of alcohol use: Occasional Drug Abuse: None Lives with: Alone Family History: Malignancy, DM, Reviewed & Not Pertinent Patient has suicidal ideation: No Patient has homicidal ideation: No - Past Medical History Cardiac Medical History: Reports: Hx Hypercholesterolemia, Hx Hypertension Pulmonary Medical History: Reports: Hx COPD Renal/ Medical History: Denies: Hx Peritoneal Dialysis Musculoskeltal Medical History: Reports Hx Musculoskeletal Trauma Psychiatric Medical History: Reports: Hx Depression Traumatic Medical History: Reports: Hx Fractures - both heels Past Surgical History: Reports: Hx Orthopedic Surgery - bilateral heel surgery, reattached thumb - Immunizations Immunizations up to date: No Hx Diphtheria, Pertussis, Tetanus Vaccination: No Review of Systems - Review of Systems Constitutional: No symptoms reported EENT: No symptoms reported Cardiovascular: No symptoms reported Respiratory: No symptoms reported Gastrointestinal: No symptoms reported Genitourinary: See HPI Male Genitourinary: See HPI Musculoskeletal: No symptoms reported Skin: No symptoms reported Hematologic/Lymphatic: No symptoms reported Neurological/Psychological: No symptoms reported Physical Exam - Vital signs Vitals: Temp Pulse Resp BP Pulse Ox 97.5 F 79 20 148/91 H 95 12/18/16 17:55 12/18/16 17:55 12/18/16 17:55 12/18/16 17:55 12/18/16 17:55 Interpretation: Normal - General General appearance: Alert, Anxious - Patient is nervous in appearance In distress: None - HEENT Head: Normocephalic, Atraumatic Eyes: Normal Pupils: PERRL - Respiratory Respiratory status: No respiratory distress Chest status: Nontender Breath sounds: Normal. No: Decreased air movement, Wheezing Chest palpation: Normal - Cardiovascular Rhythm: Regular Heart sounds: Normal auscultation Murmur: No - Abdominal Inspection: Normal Distension: No distension Bowel sounds: Normal Tenderness: Nontender Organomegaly: No organomegaly - Back Back: Normal, Nontender - Extremities General upper extremity: Normal inspection, Nontender, Normal color, Normal ROM , Normal temperature General lower extremity: Normal inspection, Nontender, Normal color, Normal ROM , Normal temperature, Normal weight bearing. No: Angella's sign - Neurological Neuro grossly intact: Yes Cognition: Normal Orientation: AAOx4 [place] Coma Scale Eye Opening: Spontaneous [place] Coma Scale Verbal: Oriented [place] Coma Scale Motor: Obeys Commands [place] Coma Scale Total: 15 Speech: Normal Motor strength normal: LUE, RUE, LLE, RLE Sensory: Normal - Psychological Associated symptoms: Anxious - Skin Skin Temperature: Warm Skin Moisture: Dry Skin Color: Davidson - Patient is very davidson Course - Re-evaluation Re-evalutation: Patient with completely unremarkable general exam. Soft abdomen. He is anxious about his recent diagnosis and symptoms. States she is having trouble sleeping. Patient also has an abscess on examination, an incision and drainage was performed numbness, area was dressed, patient was educated on wound care and return precautions. No cellulitis indicating antibiotics. I discussed patient's repeat gonorrhea test that was negative. He is not currently having any symptoms of dysuria, he just does not have frequent urination, however patient works outside in the sun all day, urine shows some elevated specific gravity, this is probably mainly related to dehydration. No flank pain or kidney stone symptoms. No evidence of infection in the urine. Patient states that he agrees this is probably the reason. I did discuss patient's anxiety, he states he feels like he just needs something to sleep. Denies SI or HI. Prescribing Vistaril, discussed follow-up with primary care, return precautions for this as well. Patient states understanding and agreement with plan - Vital Signs Vital signs: Temp Pulse Resp BP Pulse Ox 97.9 F 57 L 18 139/96 H 96 12/18/16 22:50 12/18/16 22:50 12/18/16 22:50 12/18/16 22:50 12/18/16 22:50 - Laboratory Laboratory results interpreted by me: 12/18/16 20:35 Urine Urobilinogen 2.0 H Discharge - Discharge Clinical Impression: Dysuria, Abscess, Anxiety Condition: Stable Disposition: HOME, SELF-CARE Additional Instructions: The abscess has been drained, keep clean dressing over the site, clean with soap and water, monitor for any signs of developing or spreading redness or any other concerning symptoms. Return for any concerning symptoms Your urinalysis shows some dehydration but no other concerning findings. You have had negative testing for gonorrhea, this indicates successful treatment. Avoid cleaning the genital area with peroxide, and using peroxide for cleaning, use soap and water instead. Take Vistaril as prescribed if needed for anxiety and especially for sleep, follow-up with primary care for additional management. Prescriptions: Hydroxyzine Pamoate 1 - 2 cap PO Q6HP PRN #30 capsule PRN Reason:
[2016-12-18 22:59] VITALS: BP 139/96
== END 2016-12-18 22:50 | disposition home or self-care (01) ==
LOC: ER 17:44
PROC: 0Y963ZZ Drainage of Left Inguinal Region, Percutaneous Approach (ICD-10-PCS; principal; 2016-12-18)
DX: R30.0 Dysuria (principal); L02.214 Cutaneous abscess of groin; I10 Essential (primary) hypertension; J44.9 Chronic obstructive pulmonary disease, unspecified; F41.9 Anxiety disorder, unspecified; F17.200 Nicotine dependence, unspecified, uncomplicated; Z86.19 Personal history of other infectious and parasitic diseases
CPT/HCPCS: 81001; 99284

== ENCOUNTER 2017-02-27 14:24 | Emergency (ER) | payer SELFPAY ==
[2017-02-27 14:49] VITALS: BP 149/105
--- NOTE | 2017-02-27 16:40 | ER Document Report ---
HPI - HPI Pain Level: 4 Notes: Patient is a 51-year-old male with no significant past medical history presents the ED complaining of intermittent left ear pain sore throat, and, a swollen/ painful lymph node to left side of his neck 3 days. Patient states that he is still eating and drinking without any difficulties. He is still swallowing without any problems, but does have some pain associated. He has not been taking [id number] meds for symptoms. He denies any drug allergies. Patient states that he did have some nasal congestion and discharge a few days ago but that has since resolved. Patient denies any previous history of abscesses in his throat. Denies any headache, fever, head injury, neck pain, URI, chest pain, palpitations, syncope, cough, shortness of breath, wheeze, dyspnea, abdominal pain, nausea/vomiting/diarrhea, urinary retention, dysuria, hematuria, or rash. Denies any cat bite/scratch, recent travel, or exp to sick contacts. No IV drug use per patient. - ROS Notes: REVIEW OF SYSTEMS: CONSTITUTIONAL : Denies fever, chills, or sweats. Denies recent illness. EENT: see hpi. No eye complaints. CARDIOVASCULAR: Denies chest pain. Denies palpitations or racing or irregular heart beat. Denies ankle edema. RESPIRATORY: Denies cough, cold, or chest congestion. Denies shortness of breath, difficulty breathing, or wheezing. GASTROINTESTINAL: Denies abdominal pain or distention. Denies nausea, vomiting , or diarrhea. Denies blood in vomitus, stools, or per rectum. Denies black, tarry stools. Denies constipation. GENITOURINARY: Denies difficulty urinating, painful urination, burning, frequency, blood in urine, or discharge. MUSCULOSKELETAL: Denies back or neck pain or stiffness. Denies joint pain or swelling. SKIN: Denies rash, lesions or sores. NEUROLOGICAL: Denies confusion or altered mental status. Denies passing out or loss of consciousness. Denies dizziness or lightheadedness. Denies headache. Denies weakness or paralysis or loss of use of either side. Denies problems with gait or speech. Denies sensory loss, numbness, or tingling. ALL OTHER SYSTEMS REVIEWED AND NEGATIVE. Dictation was performed using [employer] recognition software - DERM Skin Color: Normal Past Medical History - Social History Smoking Status: Unknown if Ever Smoked Family History: Malignancy, DM, Reviewed & Not Pertinent Patient has suicidal ideation: No Patient has homicidal ideation: No - Past Medical History Cardiac Medical History: Reports: Hx Hypercholesterolemia, Hx Hypertension Pulmonary Medical History: Reports: Hx COPD Renal/ Medical History: Denies: Hx Peritoneal Dialysis Musculoskeltal Medical History: Reports Hx Musculoskeletal Trauma Psychiatric Medical History: Reports: Hx Depression Traumatic Medical History: Reports: Hx Fractures - both heels Past Surgical History: Reports: Hx Orthopedic Surgery - bilateral heel surgery, reattached thumb - Immunizations Immunizations up to date: No Hx Diphtheria, Pertussis, Tetanus Vaccination: No Vertical Provider Document - CONSTITUTIONAL Agree With Documented VS: Yes Notes: PHYSICAL EXAMINATION: GENERAL: Well-appearing, well-nourished and in no acute distress. HEAD: Atraumatic, normocephalic. EYES: Pupils equal round and reactive to light, extraocular movements intact, sclera anicteric, conjunctiva are normal. ENT: EAC clear b/l. Lt TM erythemic/fluid. Rt TM wnl. Nares patent and without discharge. oropharynx mildly erythemic without exudates. No tonsilar hypertrophy or erythema. Moist mucous membranes. No sinus tenderness. Uvula midline. No palatine shift. No tongue protrusion. No respiratory compromise. NECK: Normal range of motion, supple with a single small tender mobile submandibular lymphadenopathy (Lt). No rigidity/meningismus. LUNGS: Breath sounds clear to auscultation bilaterally and equal. No wheezes rales or rhonchi. Abd: nontender. no obvious hepatosplenomegally. HEART: Regular rate and rhythm without murmurs, rubs, gallops. NEUROLOGICAL: Cranial nerves grossly intact. Normal speech, normal gait. Normal sensory, motor exams PSYCH: Normal mood, normal affect. SKIN: Warm, Dry, normal turgor, no rashes or lesions noted. - INFECTION CONTROL TRAVEL OUTSIDE OF THE [place] IN LAST 30 DAYS: No - RESPIRATORY O2 Sat by Pulse Oximetry: 99 Course - Re-evaluation Re-evalutation: 02/27/17 17:03 Patient is an afebrile, well-hydrated, 51-year-old male who presents to the ED with acute pharyngitis and acute otitis media of the left ear. Vitals are stable. PE otherwise unremarkable. Rapid strep negative. Low suspicion for any meningitis, sepsis, peritonsillar/pharyngeal abscess, respiratory compromise , Pablo's, temporal arteritis, or other emergent systemic condition at this time. Patient is aware this condition can change from initial presentation and he needs to monitor symptoms closely. I will send him home with a prescription for amoxicillin to take twice a day for 10 days. Decadron 10mg given IM today. Conservative measures otherwise for symptoms. Recheck with your PCM in 2-3 days. Return to the ED with any worsening/concerning symptoms otherwise as reviewed in discharge. Patient is in agreement. - Vital Signs Vital signs: Temp Pulse Resp BP Pulse Ox 98.8 F 71 18 149/105 H 99 02/27/17 14:46 02/27/17 14:46 02/27/17 14:46 02/27/17 14:46 02/27/17 14:46 Discharge - Discharge Clinical Impression: Acute otitis media, left Acute pharyngitis Qualifiers: Pharyngitis/tonsillitis etiology: unspecified etiology Qualified Code(s): J02.9 - Acute pharyngitis, unspecified Condition: Stable Disposition: HOME, SELF-CARE Instructions: Sore Throat ([facility]), Otitis Media ([facility]) Additional Instructions: Maintain adequate fluid intake Take meds as directed tylenol/ibuprofen as needed over the counter cold medication as needed for symptoms F/u: with your PCM in 2-3 days for a recheck Return to the ED with any fever, worsening pain, chest pain, palpitations, syncope, worsening BURNETTE, neck pain/stiffness, shortness of breath, wheezing, drooling, trouble swallowing/breathing, abdominal pain, n/v/d, rash, or worsening/concerning symptoms otherwise. Prescriptions: Amoxicillin Trihydrate [Amoxil 875 mg Tablet] 1 tab PO BID #20 tablet Forms: Elevated Blood Pressure Referrals: [facility] [Provider Group] - Follow up as needed [facility] [Provider Group] - Follow up as needed ENT [Provider Group] - Follow up as needed
[2017-02-27] MEDS ORDERED: DEXAMETHASONE SOD PHOS INJ 10 MG/1 ML VIAL IM ONE (17:05)
[2017-02-27] MEDS ORDERED: ACETAMINOPHEN 325 MG TABLET PO ONE (17:06)
== END 2017-02-27 17:35 | disposition home or self-care (01) ==
LOC: ER 14:24
DX: H66.92 Otitis media, unspecified, left ear (principal); J02.9 Acute pharyngitis, unspecified; H92.02 Otalgia, left ear; R59.0 Localized enlarged lymph nodes; I10 Essential (primary) hypertension; J44.9 Chronic obstructive pulmonary disease, unspecified
CPT/HCPCS: 99283; 96372; 87070; 87880; 87077; J1100

== ENCOUNTER 2017-06-12 12:55 | Emergency (ER) | payer SELFPAY ==
[2017-06-12 13:39] LABS: ABSOLUTE BASOPHILS # (AUTO) 0.1 10^3/uL (0.0-0.2); ABSOLUTE EOSINOPHILS # (AUTO) 0.2 10^3/uL (0.0-0.6); ABSOLUTE LYMPHOCYTES (AUTO) 1.7 10^3/uL (0.5-4.7); ABSOLUTE MONOCYTES (AUTO) 0.7 10^3/uL (0.1-1.4); EOSINOPHILS % (AUTO) 2.1 % (0-6); HEMATOCRIT 46.2 % (37.9-51.0); HEMOGLOBIN 16.2 g/dL (13.5-17.0); LYMPHOCYTES % (AUTO) 22.1 % (13-45); MEAN CORPUSCULAR HEMOGLOBIN 33.5 pg (27.0-33.4); MEAN CORPUSCULAR VOLUME 96 fl (80-97); MONOCYTES % (AUTO) 9.6 % (3-13); PLATELET COUNT 223 10^3/uL (150-450); RED BLOOD COUNT 4.82 10^6/uL (4.35-5.55); RED CELL DISTRIBUTION WIDTH 14.8 % (11.5-14.0); SEGMENTED NEUTROPHILS % (AUTO) 65.2 % (42-78); TOTAL CELLS COUNTED % (AUTO) 100 %; WHITE BLOOD COUNT 7.7 10^3/uL (4.0-10.5)
[2017-06-12 13:40] LABS: APPEARANCE,URINE CLEAR; BILIRUBIN,URINE NEGATIVE (NEGATIVE); COLOR,URINE COLORLESS; GLUCOSE, URINE NEGATIVE (NEGATIVE); KETONES,URINE NEGATIVE (NEGATIVE); LEUKOCYTE ESTERASE,URINE NEGATIVE (NEGATIVE); NITRITE,URINE NEGATIVE (NEGATIVE); PROTEIN,URINE NEGATIVE (NEGATIVE); URINE SPECIFIC GRAVITY 1.002; UROBILINOGEN,URINE NEGATIVE mg/dL (<2.0)
--- NOTE | 2017-06-12 13:52 | ER Document Report ---
ED General - General Chief Complaint: Rash Stated Complaint: RASH Time Seen by Provider: 06/12/17 13:14 Mode of Arrival: Ambulatory Information source: Patient Notes: 51-year-old male presents with multiple complaints. Patient notes he is a rash on bilateral chest and his arm. Patient notes that this is been on and off the past few days. He admits to mild itching denies any fevers or chills. Patient also concerned about STD exposure. Patient was seen within the past year was positive for gonorrhea at that time TRAVEL OUTSIDE OF THE [place] IN LAST 30 DAYS: No - HPI Onset: Last week Onset/Duration: Intermittent Quality of pain: No pain Severity: Mild Pain Level: Denies Associated symptoms: Other Exacerbated by: Denies Relieved by: Denies Similar symptoms previously: No Recently seen / treated by doctor: No - Related Data Allergies/Adverse Reactions: No Known Allergies Allergy (Verified 06/12/17 12:56) Past Medical History - Social History Smoking Status: Never Smoker Cigarette use (# per day): No Chew tobacco use (# tins/day): No Smoking Education Provided: No Family History: Malignancy, DM, Reviewed & Not Pertinent - Past Medical History Cardiac Medical History: Reports: Hx Hypercholesterolemia, Hx Hypertension Pulmonary Medical History: Reports: Hx COPD Renal/ Medical History: Denies: Hx Peritoneal Dialysis Musculoskeltal Medical History: Reports Hx Musculoskeletal Trauma Psychiatric Medical History: Reports: Hx Depression Traumatic Medical History: Reports: Hx Fractures - both heels Past Surgical History: Reports: Hx Orthopedic Surgery - bilateral heel surgery, reattached thumb - Immunizations Immunizations up to date: No Hx Diphtheria, Pertussis, Tetanus Vaccination: No Review of Systems - Review of Systems Notes: REVIEW OF SYSTEMS: CONSTITUTIONAL : Denies fever, chills, or sweats. Denies recent illness. EENT: Denies eye, ear, throat, or mouth pain or symptoms. Denies nasal or sinus congestion or discharge. Denies throat, tongue, or mouth swelling or difficulty swallowing. CARDIOVASCULAR: Denies chest pain. Denies palpitations or racing or irregular heart beat. Denies ankle edema. RESPIRATORY: Admits to cough GASTROINTESTINAL: Denies abdominal pain or distention. Denies nausea, vomiting , or diarrhea. Denies blood in vomitus, stools, or per rectum. Denies black, tarry stools. Denies constipation. GENITOURINARY: Admits to burning on urination. MUSCULOSKELETAL: Denies back or neck pain or stiffness. Denies joint pain or swelling. SKIN: Admits to rash HEMATOLOGIC : Denies easy bruising or bleeding. LYMPHATIC: Denies swollen, enlarged glands. NEUROLOGICAL: Denies confusion or altered mental status. Denies passing out or loss of consciousness. Denies dizziness or lightheadedness. Denies headache. Denies weakness or paralysis or loss of use of either side. Denies problems with gait or speech. Denies sensory loss, numbness, or tingling. Denies seizures. PSYCHIATRIC: Denies anxiety or stress. Denies depression, suicidal ideation, or homicidal ideation. ALL OTHER SYSTEMS REVIEWED AND NEGATIVE. PHYSICAL EXAMINATION: GENERAL: Well-appearing, well-nourished and in no acute distress. HEAD: Atraumatic, normocephalic. EYES: Pupils equal round and reactive to light, extraocular movements intact, conjunctiva are normal. ENT: Nares patent, oropharynx clear without exudates. Moist mucous membranes. NECK: Normal range of motion, supple without lymphadenopathy LUNGS: Breath sounds clear to auscultation bilaterally and equal. No wheezes rales or rhonchi. HEART: Regular rate and rhythm without murmurs ABDOMEN: Soft, nontender, nondistended abdomen. No guarding, no rebound. No masses appreciated. Female : deferred Musculoskeletal: Normal range of motion, no pitting or edema. No cyanosis. NEUROLOGICAL: Cranial nerves grossly intact. Normal speech, normal gait. Normal sensory, motor exams PSYCH: Normal mood, normal affect. SKIN: Warm, Dry, normal turgor, no rashes or lesions noted. Dictation was performed using [employer] voice recognition software Physical Exam - Vital signs Vitals: Temp Pulse Resp BP Pulse Ox 98.2 F 72 16 168/96 H 100 06/12/17 13:05 06/12/17 13:05 06/12/17 13:05 06/12/17 13:05 06/12/17 13:05 Course - Re-evaluation Re-evalutation: 06/12/17 19:05 Patient lab work urinalysis and STD examinations were benign, patient has extensive history of anxiety and appears quite anxious, I believe he is stable for discharge, his rash is very nonspecific and is blanching is any airway compromise therefore I have very low suspicion for any life-threatening issue After performing a Medical Screening Examination, I estimate there is LOW risk for any life threatening rash. At this time the patient looks extremely well and there are no signs of systemic infection, however this may change at any time and the rash may change. I have reevaluated this patient multiple times and no significant life threatening changes are noted. The patient and I have discussed the diagnosis and risks, and we agree with discharging home with close follow-up with the understanding that symptoms and presentations can change. We also discussed returning to the Emergency Department immediately if new or worsening symptoms occur. We have discussed the symptoms which are most concerning (e.g., changing or worsening pain, fever, numbness, weakness, cool or painful digits) that necessitate immediate return. - Vital Signs Vital signs: Temp Pulse Resp BP Pulse Ox 97.5 F 76 16 132/96 H 96 06/12/17 15:11 06/12/17 15:11 06/12/17 13:05 06/12/17 15:11 06/12/17 15:11 - Laboratory Result Diagrams: 06/12/17 13:30 06/12/17 13:30 Laboratory results interpreted by me: 06/12/17 13:30 MCH 33.5 H RDW 14.8 H Discharge - Discharge Clinical Impression: Rash and nonspecific skin eruption, Concern for STD exposure Condition: Stable Disposition: HOME, SELF-CARE Instructions: Contact Dermatitis ([facility]) Additional Instructions: Follow up with your physician tomorrow for further care or return to the ED IMMEDIATELY if symptoms worsen or new concerns occur. If you cannot afford to follow up with your primary care physician a list of low cost clinics have been provided at the end of your discharge papers as well.
[2017-06-12 13:57] LABS: ALANINE AMINOTRANSFERASE 44 U/L (21-72); ALBUMIN 4.5 g/dL (3.5-5.0); ALKALINE PHOSPHATASE 71 U/L (38-126); ANION GAP 13 (5-19); ASPARTATE AMINO TRANSFERASE 40 U/L (17-59); BILIRUBIN,DIRECT 0.3 mg/dL (0.0-0.4); BILIRUBIN,TOTAL 0.4 mg/dL (0.2-1.3); BLOOD UREA NITROGEN 12 mg/dL (7-20); CALCIUM 10.1 mg/dL (8.4-10.2); CARBON DIOXIDE 25 mmol/L (22-30); CHLORIDE 102 mmol/L (98-107); GLUCOSE 90 mg/dL (75-110); POTASSIUM 4.5 mmol/L (3.6-5.0); SODIUM 139.7 mmol/L (137-145)
[2017-06-12 15:00] LABS: CHLAM PCR NOT DETECTED (NOT DETECT); GON PCR NOT DETECTED (NOT DETECT)
[2017-06-12 15:13] VITALS: BP 132/96
== END 2017-06-12 15:10 | disposition home or self-care (01) ==
LOC: ER 12:55
DX: R21 Rash and other nonspecific skin eruption (principal); Z20.2 Contact with and (suspected) exposure to infections with a predominantly sexual mode of transmission; I10 Essential (primary) hypertension; J44.9 Chronic obstructive pulmonary disease, unspecified; R05 Cough; R30.0 Dysuria
CPT/HCPCS: 36415; 80053; 81001; 85025; 87491; 87591; 99283

== ENCOUNTER 2017-07-07 08:06 | Emergency (ER) | payer SELFPAY ==
--- NOTE | 2017-07-07 08:58 | RADIOLOGY REPORT (SQ) ---
EXAM DESCRIPTION: CHEST PA/LAT COMPLETED DATE/TIME: 07/07/2017 8:48 am REASON FOR STUDY: fall r/o fx COMPARISON: 08/18/2016 EXAM PARAMETERS: NUMBER OF VIEWS: two views TECHNIQUE: Digital Frontal and Lateral radiographic views of the chest acquired. RADIATION DOSE: NA LIMITATIONS: none FINDINGS: LUNGS AND PLEURA: No opacities, masses or pneumothorax. No pleural effusion. MEDIASTINUM AND HILAR STRUCTURES: No masses or contour abnormalities. HEART AND VASCULAR STRUCTURES: Heart normal size. No evidence for failure. BONES: Upper thoracic wedge compression fracture new since previous study. No definitive rib fractur es. HARDWARE: None in the chest. OTHER: No other significant finding. IMPRESSION: No acute pulmonary disease. New compression fracture upper thoracic spine since prior study. TECHNICAL DOCUMENTATION: JOB ID: [id number] [employer]- All Rights Reserved
--- NOTE | 2017-07-07 09:00 | ER Document Report ---
ED General - General Chief Complaint: Back Injury Stated Complaint: CHEST/BACK PAIN Time Seen by Provider: 07/07/17 08:34 Notes: 51-year-old male presents with right lower back pain and left anterior chest pain, both are positional both have been going on since he fell about 4 days ago. He has had increased cough and sputum production as well in the setting of COPD. Today's pain got so bad he called an ambulance. Denies shortness of breath today. Denies neurologic symptoms. Had a stress test but not since he was 39 years old. TRAVEL OUTSIDE OF THE [place] IN LAST 30 DAYS: No - Related Data Allergies/Adverse Reactions: No Known Allergies Allergy (Verified 07/07/17 08:51) Past Medical History - Social History Smoking Status: Current Every Day Smoker Chew tobacco use (# tins/day): No Smoking Education Provided: Yes - The patient ED visit today was directly related to their abuse of tobacco. Frequency of alcohol use: None Drug Abuse: None Family History: Malignancy, DM, Reviewed & Not Pertinent Patient has suicidal ideation: No Patient has homicidal ideation: No - Past Medical History Cardiac Medical History: Reports: Hx Hypercholesterolemia, Hx Hypertension Pulmonary Medical History: Reports: Hx COPD Renal/ Medical History: Denies: Hx Peritoneal Dialysis Musculoskeltal Medical History: Reports Hx Musculoskeletal Trauma Psychiatric Medical History: Reports: Hx Depression Traumatic Medical History: Reports: Hx Fractures - both heels Past Surgical History: Reports: Hx Orthopedic Surgery - bilateral heel surgery, reattached thumb - Immunizations Immunizations up to date: No Hx Diphtheria, Pertussis, Tetanus Vaccination: No Review of Systems - Review of Systems Notes: REVIEW OF SYSTEMS GEN: Denies fever, chills, weight loss ENT: Denies sore throat, nasal discharge, ear pain EYES: Denies blurry vision, eye pain, discharge CV: Positional left anterior. Tenderness of the right lumbar paraspinous muscles. Chest pain, palpitations, edema RESP: Denies cough, shortness of breath, wheezing GI: Denies abdominal pain, nausea, vomiting, diarrhea MSK: Right-sided back pain SKIN: Denies rash, skin lesions LYMPH: Denies swollen glands/lymph nodes NEURO: Denies headache, focal weakness or numbness, dizziness PSYCH: Denies depression, suicidal or homicidal ideation PHYSICAL EXAMINATION General: No acute distress, well-nourished Head: Atraumatic, normocephalic ENT: Mouth normal, oropharynx moist, no exudates or tonsillar enlargement Eyes: Conjunctiva normal, pupils equal, lids normal Neck: No JVD, supple, no guarding CVS: Normal rate, regular rhythm, no murmurs. Left infra pectoral chest tenderness. Resp: No resp distress, equal and normal breath sounds bilaterally GI: Nondistended, soft, no tenderness to palpation, no rebound or guarding Ext: No deformities, no edema, normal range of motion in upper and lower ext Back: No CVA or midline TTP. Right lower lumbar tenderness, right intrascapular muscle tenderness. Skin: No rash, warm Lymphatic: No lymphadeopathy noted Neuro: Awake, alert. Face symmetric. GCS 15. Physical Exam - Vital signs Vitals: Temp Pulse Resp BP Pulse Ox 98.4 F 70 18 161/82 H 97 07/07/17 08:11 07/07/17 08:11 07/07/17 08:11 07/07/17 08:11 07/07/17 08:11 Course - Re-evaluation Re-evalutation: 07/07/17 09:00 51-year-old male with COPD presents with back pain post trauma with no midline tenderness or neurologic symptoms likely muscle strain versus spasm. Also has left chest pain worse when sitting up and reproducible on exam. He is very concerned that this is his heart or "an infection." We will rule out pneumothorax pneumonia or trauma with chest film. Will get a single troponin given that time course of his pain rule out ACS. Given his increased beta production I will treat him with doxycycline. - Vital Signs Vital signs: Temp Pulse Resp BP Pulse Ox 98.4 F 70 18 161/82 H 97 07/07/17 08:11 07/07/17 08:11 07/07/17 08:11 07/07/17 08:11 07/07/17 08:11 - Diagnostic Test Radiology reviewed: Image reviewed, Reports reviewed - EKG Interpretation by Me EKG shows normal: Sinus rhythm Rate: Normal Rhythm: NSR When compared to previous EKG there are: No significant change Additional EKG results interpreted by me: 07/07/17 09:53 Specifically no signs of acute ischemia Discharge - Discharge Clinical Impression: Chest wall pain Low back strain Qualifiers: Encounter type: initial encounter Qualified Code(s): S39.012A - Strain of muscle, fascia and tendon of lower back, initial encounter Condition: Good Disposition: HOME, SELF-CARE Instructions: Anti-Inflammatory Medication ([facility]), Chest Wall Pain ([facility]), Muscle Strain ([facility]) Prescriptions: Ibuprofen 600 mg PO Q6HP PRN #60 tablet PRN Reason: Cyclobenzaprine HCl [Flexeril 5 mg Tablet] 5 mg PO TID #15 tablet
[2017-07-07 10:37] VITALS: BP 156/81
--- NOTE | 2017-07-07 12:47 | EKG REPORT ---
SEVERITY:- BORDERLINE ECG - SINUS RHYTHM ABNORMAL T INVERSION IN LATERAL LEAD AVL, NONSPECIFIC, BUT NEW COMPARED TO 08/18/16 EKG. : Confirmed by: Robb Swain MD 07-Jul-2017 12:47:10
== END 2017-07-07 10:24 | disposition home or self-care (01) ==
LOC: ER 08:06
DX: S39.012A Strain of muscle, fascia and tendon of lower back, initial encounter (principal); R07.89 Other chest pain; W19.XXXA Unspecified fall, initial encounter; J44.9 Chronic obstructive pulmonary disease, unspecified; R05 Cough; F17.200 Nicotine dependence, unspecified, uncomplicated; I10 Essential (primary) hypertension
CPT/HCPCS: 36415; 71046; 84484; 93005; 93010; 99285

== ENCOUNTER 2017-10-28 20:39 | Emergency (ER) | payer SELFPAY ==
[2017-10-28 20:58] VITALS: BP 167/95
--- NOTE | 2017-10-28 22:01 | ER Document Report ---
ED General - General Chief Complaint: Abdominal Pain Stated Complaint: LUMP ON STOMACH Time Seen by Provider: 10/28/17 21:41 Mode of Arrival: Ambulatory Information source: Patient Notes: 51-year-old male presents with complaint of a lump on his stomach. Patient states that he has noticed a lump on the right side of his stomach for 2 weeks. He denies any pain. He denies any injury. Patient states that he is anxious that it is cancer because he is a smoker. He denies any weight loss, night sweats, family history of colon cancer. Patient states he had one episode of nausea 2 weeks ago, one episode of diarrhea 2 weeks ago. He denies any black or bloody stools. He admits to being anxious. He states that he moved down here from [place] to be with his father who has since passed and has not established any primary care. Patient is pacing around the room. He is difficult to direct or obtain history from. TRAVEL OUTSIDE OF THE [place] IN LAST 30 DAYS: No - HPI Onset: Other Onset/Duration: Gradual Quality of pain: No pain Severity: None Associated symptoms: None Exacerbated by: Denies Relieved by: Denies Similar symptoms previously: No Recently seen / treated by doctor: No - Related Data Allergies/Adverse Reactions: No Known Allergies Allergy (Verified 07/07/17 08:51) Past Medical History - General Information source: Patient, [facility] - Social History Smoking Status: Current Every Day Smoker Frequency of alcohol use: None Drug Abuse: None Family History: Malignancy, DM, Reviewed & Not Pertinent Patient has suicidal ideation: No Patient has homicidal ideation: No - Past Medical History Cardiac Medical History: Reports: Hx Hypercholesterolemia, Hx Hypertension Pulmonary Medical History: Reports: Hx COPD Renal/ Medical History: Denies: Hx Peritoneal Dialysis Musculoskeltal Medical History: Reports Hx Musculoskeletal Trauma Psychiatric Medical History: Reports: Hx Depression Traumatic Medical History: Reports: Hx Fractures - both heels Past Surgical History: Reports: Hx Orthopedic Surgery - bilateral heel surgery, reattached thumb - Immunizations Immunizations up to date: No Hx Diphtheria, Pertussis, Tetanus Vaccination: No Review of Systems - Review of Systems Constitutional: denies: Fever, Malaise, Weight loss, Recent illness EENT: denies: Blurred vision Cardiovascular: denies: Chest pain, Palpitations Respiratory: Cough. denies: Short of breath Gastrointestinal: denies: Abdominal pain, Diarrhea, Nausea, Black stools Genitourinary: denies: Dysuria, Hematuria Musculoskeletal: denies: Back pain Skin: Lumps Hematologic/Lymphatic: denies: Easy bleeding Neurological/Psychological: Anxiety. denies: Headaches, Suicidal ideation -: Yes All other systems reviewed and negative Physical Exam - Vital signs Vitals: Temp Pulse Resp BP Pulse Ox 98.9 F 62 20 167/95 H 97 10/28/17 20:56 10/28/17 20:56 10/28/17 20:56 10/28/17 20:56 10/28/17 20:56 Interpretation: Normal, Hypertensive - Notes Notes: PHYSICAL EXAMINATION: GENERAL: Well-appearing, well-nourished and in no acute distress. HEAD: Atraumatic, normocephalic. EYES: Pupils equal round and reactive to light, extraocular movements intact, sclera anicteric, conjunctiva are normal. ENT: Nares patent, oropharynx clear without exudates. Moist mucous membranes. NECK: Normal range of motion, supple without lymphadenopathy LUNGS: Breath sounds clear to auscultation bilaterally and equal. No wheezes rales or rhonchi. HEART: Regular rate and rhythm without murmurs ABDOMEN: Soft, nontender, nondistended abdomen. No guarding, no rebound. Pea- sized superficial lipoma Musculoskeletal: Normal range of motion, no pitting or edema. No cyanosis. NEUROLOGICAL: Cranial nerves grossly intact. Normal speech, normal gait. Normal sensory, motor exams PSYCH: anxious, normal affect. SKIN: Warm, Dry, normal turgor, no rashes or lesions noted. Course - Re-evaluation Re-evalutation: 10/29/17 00:01 Laboratory 10/28/17 10/28/17 22:15 22:15 Urine Color STRAW Urine Appearance SLIGHTLY-CLOUDY Urine pH 7.0 Ur Specific [place] 1.008 Urine Protein NEGATIVE Urine Glucose (UA) NEGATIVE Urine Ketones NEGATIVE Urine Blood NEGATIVE Urine Nitrite NEGATIVE Urine Bilirubin NEGATIVE Urine Urobilinogen NEGATIVE Ur Leukocyte Esterase NEGATIVE Urine WBC (Auto) 3 Urine RBC (Auto) 0 Urine Mucus (Auto) RARE Urine Ascorbic Acid NEGATIVE Chlamydia DNA (PCR) NOT DETECTED N.gonorrhoeae DNA (PCR) NOT DETECTED Acute Abdomen Series 10/28/17 21:53 IMPRESSION: No acute findings. 10/29/17 14:42 51-year-old male with hypertension, tobacco dependence presents with concern for a lump on his abdomen. Upon arrival vitals were reviewed. Patient is hypertensive, afebrile. He does not appear toxic or dehydrated, he is in no acute distress. He does seem anxious about his health and concern that this may be cancer. Exam is significant for a small pea-sized lipoma in the right mid quadrant. Abdominal series was obtained and within normal limits. Urine is without evidence of infection. Patient was reassured and started on Norvasc. Smoking cessation advised. Patient provided the opportunity to ask questions, and express concerns. Discharge instructions discussed. Patient is agreeable with discharge home. Return indications explained and discussed with the patient who displays understanding. Patient encouraged to return to the emergency department immediately with any concerns. 10/29/17 14:44 Patient counselled regarding cessation for 4 minutes - Vital Signs Vital signs: Temp Pulse Resp BP Pulse Ox 98.9 F 62 20 167/95 H 97 10/28/17 20:56 10/28/17 20:56 10/28/17 20:56 10/28/17 20:56 10/28/17 20:56 - Diagnostic Test Radiology reviewed: Image reviewed, Reports reviewed Discharge - Discharge Clinical Impression: Elevated BP without diagnosis of hypertension, Tobacco dependence, Anxiety about health Lipoma Qualifiers: Lipoma location: trunk Qualified Code(s): D17.1 - Benign lipomatous neoplasm of skin and subcutaneous tissue of trunk Condition: Good Disposition: HOME, SELF-CARE Instructions: Anxiety ([facility]), High Blood Pressure ([facility]) Additional Instructions: Follow up with your physician tomorrow for further care or return to the ED IMMEDIATELY if symptoms worsen or new concerns occur. If you cannot afford to follow up with your primary care physician a list of low cost clinics have been provided at the end of your discharge papers as well. Prescriptions: Amlodipine Besylate [Norvasc 5 mg Tablet] 5 mg PO DAILY #30 tablet Forms: Elevated Blood Pressure, Smoking Cessation Education
[2017-10-28 22:28] LABS: APPEARANCE,URINE SLIGHTLY-CLOUDY; BILIRUBIN,URINE NEGATIVE (NEGATIVE); COLOR,URINE STRAW; GLUCOSE, URINE NEGATIVE (NEGATIVE); KETONES,URINE NEGATIVE (NEGATIVE); LEUKOCYTE ESTERASE,URINE NEGATIVE (NEGATIVE); NITRITE,URINE NEGATIVE (NEGATIVE); PROTEIN,URINE NEGATIVE (NEGATIVE); URINE SPECIFIC GRAVITY 1.008; UROBILINOGEN,URINE NEGATIVE mg/dL (<2.0)
--- NOTE | 2017-10-28 22:36 | RADIOLOGY REPORT (SQ) ---
EXAM DESCRIPTION: Acute abdominal series CLINICAL HISTORY: 51 years Male, lump COMPARISON: None. NUMBER OF VIEWS/TECHNIQUE: 3 LIMITATIONS: None. FINDINGS: Intestinal gas pattern is within normal limits. No suspicious calcification. Grossly intact skeletal structures. No acute cardiopulmonary findings. IMPRESSION: No acute findings.
[2017-10-28] MEDS ORDERED: AMLODIPINE BESYLATE 5 MG TABLET PO ONE (22:48)
[2017-10-28 23:56] LABS: CHLAM PCR NOT DETECTED (NOT DETECT); GON PCR NOT DETECTED (NOT DETECT)
== END 2017-10-28 23:29 | disposition home or self-care (01) ==
LOC: ER 20:39
DX: F41.9 Anxiety disorder, unspecified (principal); R03.0 Elevated blood-pressure reading, without diagnosis of hypertension; D17.1 Benign lipomatous neoplasm of skin and subcutaneous tissue of trunk; R10.9 Unspecified abdominal pain; F17.200 Nicotine dependence, unspecified, uncomplicated; E78.00 Pure hypercholesterolemia, unspecified; J44.9 Chronic obstructive pulmonary disease, unspecified
CPT/HCPCS: 74022; 81001; 87491; 87591; 99284

== ENCOUNTER 2017-12-06 03:47 | Emergency (ER) | payer SELFPAY ==
[2017-12-06] MEDS ORDERED: LIDOCAINE 1% INJ-PF (10 MG/ML) 30 ML SDV INFIL ONE (04:18)
[2017-12-06] MEDS ORDERED: CEFTRIAXONE INJ 250 MG VIAL IM ONE (04:18)
[2017-12-06] MEDS ORDERED: AZITHROMYCIN 250 MG TABLET PO ONE (04:18)
--- NOTE | 2017-12-06 04:19 | ER Document Report ---
ED GI/ - General Chief Complaint: Flank Pain Stated Complaint: FLANK PAIN Time Seen by Provider: 12/06/17 04:09 Notes: The patient is a 51-year-old male, past medical history alcoholism with recent detox, presents with several weeks of right flank pain. He says it is worse at the end of the day and he is concerned that it is pancreatic cancer. He is feeling very anxious since he went through detox and cannot stop thinking about his pain. He denies nausea, vomiting, fevers, hematuria, dysuria, rash, chest pain, shortness of breath, diarrhea or constipation. TRAVEL OUTSIDE OF THE [place] IN LAST 30 DAYS: No - Related Data Allergies/Adverse Reactions: No Known Allergies Allergy (Verified 07/07/17 08:51) Past Medical History - General Information source: Patient - Social History Smoking Status: Unknown if Ever Smoked Frequency of alcohol use: Heavy drinker in the past Family History: Malignancy, DM, Reviewed & Not Pertinent - Past Medical History Cardiac Medical History: Reports: Hx Hypercholesterolemia, Hx Hypertension Pulmonary Medical History: Reports: Hx COPD Renal/ Medical History: Denies: Hx Peritoneal Dialysis Musculoskeltal Medical History: Reports Hx Musculoskeletal Trauma Psychiatric Medical History: Reports: Hx Depression Traumatic Medical History: Reports: Hx Fractures - both heels Past Surgical History: Reports: Hx Orthopedic Surgery - bilateral heel surgery, reattached thumb - Immunizations Immunizations up to date: No Hx Diphtheria, Pertussis, Tetanus Vaccination: No Review of Systems - Review of Systems Notes: REVIEW OF SYSTEMS: CONSTITUTIONAL: -fevers, -chills EENT: -eye pain, -difficulty swallowing, -nasal congestion CARDIOVASCULAR: -chest pain, -syncope. RESPIRATORY: -cough, -SOB GASTROINTESTINAL: +right-sided abdominal pain, -nausea, -vomiting, -diarrhea GENITOURINARY: -dysuria, -hematuria MUSCULOSKELETAL: -back pain, -neck pain SKIN: -rash or skin lesions. HEMATOLOGIC: -easy bruising or bleeding. LYMPHATIC: -swollen, enlarged glands. NEUROLOGICAL: -altered mental status or loss of consciousness, -headache, - neurologic symptoms PSYCHIATRIC: +anxiety, -depression. ALL OTHER SYSTEMS REVIEWED AND NEGATIVE. Physical Exam - Vital signs Vitals: Temp Pulse Resp BP Pulse Ox 98.2 F 73 18 179/90 H 98 12/06/17 04:00 12/06/17 04:00 12/06/17 04:00 12/06/17 04:00 12/06/17 04:00 - Notes Notes: PHYSICAL EXAMINATION: GENERAL: Well-appearing, well-nourished and in no acute distress. HEAD: Atraumatic, normocephalic. EYES: Pupils equal round and reactive to light, extraocular movements intact, sclera anicteric, conjunctiva are normal. ENT: nares patent, oropharynx clear without exudates. Moist mucous membranes. NECK: Normal range of motion, supple without lymphadenopathy LUNGS: Breath sounds clear to auscultation bilaterally and equal. No wheezes rales or rhonchi. HEART: Regular rate and rhythm without murmurs ABDOMEN: Soft, nontender, normoactive bowel sounds. No guarding, no rebound. No masses appreciated. EXTREMITIES: Normal range of motion, no pitting or edema. No cyanosis. NEUROLOGICAL: Cranial nerves grossly intact. Normal speech, normal gait. Normal sensory and motor exams. PSYCH: Appears anxious. SKIN: Warm, Dry, normal turgor, no rashes or lesions noted. Course - Re-evaluation Re-evalutation: Patient with several weeks of right flank pain. His CT does not show any signs of kidney stones or any other acute abnormalities. Blood work and urine are unremarkable, other than a leukocytosis. However, there are no signs of infection at this time. Abdominal exam is completely nontender. He did want to be treated for STDs prior to the results and told him that he must tell his partners to go to the health department for treatment. Given very strict return precautions and he understands. - Vital Signs Vital signs: Temp Pulse Resp BP Pulse Ox 98.2 F 73 18 179/90 H 98 12/06/17 04:00 12/06/17 04:00 12/06/17 04:00 12/06/17 04:00 12/06/17 04:00 - Laboratory Result Diagrams: 12/06/17 04:23 12/06/17 04:23 Laboratory results interpreted by me: 12/06/17 12/06/17 04:23 04:23 WBC 16.3 H RDW 15.3 H Absolute Neutrophils 12.7 H Urine Ascorbic Acid 40 H - Diagnostic Test Radiology reviewed: Image reviewed, Reports reviewed Radiology results interpreted by me: CT A/P: 1. No acute inflammatory or obstructive process identified. 2. Punctate nonobstructing inferior pole left renal calculus. Discharge - Discharge Clinical Impression: Chronic right flank pain Condition: Stable Disposition: HOME, SELF-CARE Additional Instructions: Have your partners go to the health department for further evaluation and treatment. Your CAT scan did not reveal any concerning abnormalities. Follow- up with your primary care physician for further evaluation and treatment, including further treatment for your blood pressure. Flank Pain We weren't able to prove an exact cause for your flank pain. Pain in the flank can be caused by a muscle strain or spasm. Sometimes a kidney stone causes pain, but can't be found on our tests. Infection in the kidney should be evident on a urine test. Early shingles can occasionally cause flank pain, without the rash that proves the diagnosis. On rare occasions, disease of the pancreas, aorta, spleen, or colon can create pain in the flank. At this time, there's no evidence of a dangerous condition, and it seems safe for you to be at home. If the pain goes away and does not come back, no further testing will be needed. If pain persists, or becomes more severe, we may need to repeat some tests or order additional new testing. Blood in the urine, urgency to urinate frequently, and pain that radiates to the groin can indicate a kidney stone. Fever may mean that the pain is due to infection, either of the kidney or the colon (diverticulitis). If your pain is early shingles, you should develop an eruption of blisters in the painful area within a few days. Call the doctor or return if you have pain that is spreading or becoming more severe, pain that does not resolve with time, fever, or any other new symptoms. Forms: Elevated Blood Pressure Referrals: [facility] [Outside] - Follow up as needed
[2017-12-06 04:40] LABS: APPEARANCE,URINE CLEAR; BILIRUBIN,URINE NEGATIVE (NEGATIVE); COLOR,URINE YELLOW; GLUCOSE, URINE NEGATIVE (NEGATIVE); KETONES,URINE NEGATIVE (NEGATIVE); LEUKOCYTE ESTERASE,URINE NEGATIVE (NEGATIVE); NITRITE,URINE NEGATIVE (NEGATIVE); PROTEIN,URINE NEGATIVE (NEGATIVE); URINE SPECIFIC GRAVITY 1.013; UROBILINOGEN,URINE NEGATIVE mg/dL (<2.0)
[2017-12-06 04:43] LABS: ABSOLUTE EOSINOPHILS # (AUTO) 0.2 10^3/uL (0.0-0.6); ABSOLUTE LYMPHOCYTES (AUTO) 2.5 10^3/uL (0.5-4.7); ABSOLUTE MONOCYTES (AUTO) 0.9 10^3/uL (0.1-1.4); ABSOLUTE NEUT (AUTO) 12.7 10^3/uL (1.7-8.2); BASOPHILS % (AUTO) 0.2 % (0-2); HEMATOCRIT 41.5 % (37.9-51.0); HEMOGLOBIN 14.3 g/dL (13.5-17.0); LYMPHOCYTES % (AUTO) 15.3 % (13-45); MEAN CORPUSCULAR HEMOGLOBIN 32.4 pg (27.0-33.4); MEAN CORPUSCULAR HGB CONC 34.4 g/dL (32.0-36.0); MEAN CORPUSCULAR VOLUME 94 fl (80-97); MONOCYTES % (AUTO) 5.5 % (3-13); PLATELET COUNT 279 10^3/uL (150-450); RED BLOOD COUNT 4.41 10^6/uL (4.35-5.55); RED CELL DISTRIBUTION WIDTH 15.3 % (11.5-14.0); TOTAL CELLS COUNTED % (AUTO) 100 %; WHITE BLOOD COUNT 16.3 10^3/uL (4.0-10.5)
--- NOTE | 2017-12-06 04:45 | RADIOLOGY REPORT (SQ) ---
EXAM DESCRIPTION: CT ABDOMEN WITHOUT IV CONTRAST COMPLETED DATE/TME: 12/06/2017 04:10 CLINICAL HISTORY: right flank pain COMPARISON: None Available. TECHNIQUE: CT of the abdomen and pelvis without IV contrast. Evaluation of the solid organs and vasculature is suboptimal due to lack of IV contrast. DLP: 388.4 mGy-cm FINDINGS: Lung Bases: The visualized lung bases are clear. Bones: No destructive bone lesions identified. Remote posterior right 10th rib fracture. Degenerative spondylosis and degenerative disc changes of the visualized thoracic and lumbar spine. Remote-appearing compression deformity of L1 vertebral body. Abdomen: Liver: The liver has normal size and density. Gallbladder: No calcified gallstones. Spleen, Pancreas, and Adrenal Glands: The spleen, pancreas, and adrenal glands are unremarkable. Kidneys: The kidneys have normal size and contour without evidence of hydronephrosis. No obstructing ureteral calculi. Punctate nonobstructing inferior pole left renal calculus. Vasculature: Aortoiliac atherosclerosis. IVC is unremarkable. Stomach: The stomach and duodenum have normal course. Other: No free intraperitoneal air. No free fluid or lymphadenopathy. Pelvis: Bladder: Urinary bladder is unremarkable. Bowel: No dilated loops of large or small bowel. Appendix: Normal appendix. Pelvis: Prostate is not enlarged. IMPRESSION: 1. No acute inflammatory or obstructive process identified. 2. Punctate nonobstructing inferior pole left renal calculus. This exam was performed according to our departmental dose-optimization program, which includes automated exposure control, adjustment of the mA and/or kV according to patient size and/or use of iterative reconstruction technique.
[2017-12-06 04:52] LABS: ALANINE AMINOTRANSFERASE 37 U/L (21-72); ALBUMIN 4.5 g/dL (3.5-5.0); ALKALINE PHOSPHATASE 60 U/L (38-126); ANION GAP 12 (5-19); ASPARTATE AMINO TRANSFERASE 32 U/L (17-59); BILIRUBIN,DIRECT 0.3 mg/dL (0.0-0.4); BILIRUBIN,TOTAL 0.4 mg/dL (0.2-1.3); BLOOD UREA NITROGEN 12 mg/dL (7-20); CALCIUM 9.2 mg/dL (8.4-10.2); CARBON DIOXIDE 25 mmol/L (22-30); CHLORIDE 106 mmol/L (98-107); GLUCOSE 109 mg/dL (75-110); POTASSIUM 4.3 mmol/L (3.6-5.0); SODIUM 142.9 mmol/L (137-145); TOTAL PROTEIN 7.1 g/dL (6.3-8.2)
[2017-12-06 05:41] VITALS: BP 163/96
[2017-12-06 06:08] LABS: CHLAM PCR NOT DETECTED (NOT DETECT); GON PCR NOT DETECTED (NOT DETECT)
== END 2017-12-06 05:36 | disposition home or self-care (01) ==
LOC: ER 03:47
DX: N20.0 Calculus of kidney (principal); R10.9 Unspecified abdominal pain; G89.29 Other chronic pain; D72.829 Elevated white blood cell count, unspecified; F10.21 Alcohol dependence, in remission; F41.9 Anxiety disorder, unspecified; I10 Essential (primary) hypertension; J44.9 Chronic obstructive pulmonary disease, unspecified
CPT/HCPCS: 99284; 96372; 36415; 85025; 80053; 81001; 87491; 87591; 76380; J3490; J0696

== ENCOUNTER 2018-08-23 15:12 | Emergency (ER) | payer SELFPAY ==
[2018-08-23 15:19] VITALS: BP 156/94
[2018-08-23] MEDS ORDERED: LIDOCAINE 1% INJ-PF (10 MG/ML) 30 ML SDV INJ ONE (15:33)
[2018-08-23] MEDS ORDERED: CEFTRIAXONE INJ 1000 MG VIAL IM ONE (15:33)
[2018-08-23] MEDS ORDERED: AZITHROMYCIN 250 MG TABLET PO ONE (15:33)
--- NOTE | 2018-08-23 15:37 | ER Document Report ---
HPI - HPI Time Seen by Provider: 08/23/18 15:23 Pain Level: 1 Context: Patient is a 52-year-old male who presents emergency department with a chief complaint of a rash to his left groin and down his legs. His symptoms started 2 days ago. He denies any fever, but states that he does have a cough. He took a dose of sgtg-[id number] mucus medication, but states that has not helped. He states that he is also concerned about STDs. Was sexually active about a month ago, with no protection. Denies any penile discharge, dysuria, Or fever. He has been off his Lamictal and restarted dose. He is also attempting to quit smoking and has a nicotine patch on. He has also been out of his clonidine for the last 3 days and takes 0.1 mg every day. He has not seen a primary care provider, nor does he have one. - CONSTITUTIONAL Constitutional: DENIES: Fever, Chills - EENT EENT: DENIES: Sore Throat - RESPIRATORY Respiratory: REPORTS: Coughing - GASTROINTESTINAL Gastrointestinal: DENIES: Abdominal Pain - URINARY Urinary: DENIES: Dysuria, Urgency, Frequency - MUSCULOSKELETAL Musculoskeletal: DENIES: Extremity pain Past Medical History - General Information source: Patient - Social History Smoking Status: Current Every Day Smoker Chew tobacco use (# tins/day): No Family History: Malignancy, DM, Reviewed & Not Pertinent Patient has suicidal ideation: No Patient has homicidal ideation: No - Past Medical History Cardiac Medical History: Reports: Hx Hypercholesterolemia, Hx Hypertension Pulmonary Medical History: Reports: Hx COPD Renal/ Medical History: Denies: Hx Peritoneal Dialysis Musculoskeletal Medical History: Reports Hx Musculoskeletal Trauma Psychiatric Medical History: Reports: Hx Depression Traumatic Medical History: Reports: Hx Fractures - both heels Past Surgical History: Reports: Hx Orthopedic Surgery - bilateral heel surgery, reattached thumb - Immunizations Immunizations up to date: No Hx Diphtheria, Pertussis, Tetanus Vaccination: No Vertical Provider Document - CONSTITUTIONAL Agree With Documented VS: Yes Exam Limitations: No Limitations General Appearance: No Apparent Distress - INFECTION CONTROL TRAVEL OUTSIDE OF THE [place] IN LAST 30 DAYS: No - HEENT HEENT: Atraumatic, Normocephalic - NECK Neck: Normal Inspection - RESPIRATORY Respiratory: Breath Sounds Normal, No Respiratory Distress - CARDIOVASCULAR Cardiovascular: Regular Rate, Regular Rhythm Pulses: Normal: Radial - GI/ABDOMEN Gastrointestinal: Abdomen Soft - MUSCULOSKELETAL/EXTREMETIES Musculoskeletal/Extremeties: FROM - NEURO Level of Consciousness: Awake, Alert, Appropriate Motor/Sensory: No Sensory Deficit, Positive Babinski's Sign - DERM Integumentary: Warm, Dry, Rash - Rash noted to the left groin due to shaving. Course - Re-evaluation Re-evalutation: 08/23/18 15:37 Patient will be prophylactically treated for gonorrhea and chlamydia here in the emergency department. I will give him a gram of Rocephin instead of 250 mg since he is having respiratory symptoms also. He will follow-up with [facility] in regards to this visit. I do not suspect he has any life- threatening etiology. I will also refill his clonidine for his hypertension. Verbal discharge instructions were given to the patient. They verbalized understanding. They are stable for discharge. - Vital Signs Vital signs: Temp Pulse Resp BP Pulse Ox 97.9 F 65 18 156/94 H 98 08/23/18 15:18 08/23/18 15:18 08/23/18 15:18 08/23/18 15:18 08/23/18 15:18 Discharge - Discharge Clinical Impression: Essential hypertension, Rash Condition: Stable Disposition: HOME, SELF-CARE Additional Instructions: You were seen today in the emergency department for a rash, possible STD exposure, and high blood pressure. You have been treated in the emergency department for STDs. Do not have sex within the next week. When she start having sex, please use protection. One of the antibiotics should also help you with your rash. Please do not shave your genital or groin area anymore. Your clonidine prescription has been refilled. Please follow-up with the [facility] in regards to this visit. If you are able to establish a regular primary care provider, please do so. If you have worsening symptoms, shortness of breath, or any symptoms that are worrisome to you, please return to the emergency department. Prescriptions: Clonidine HCl [Catapres] 0.1 mg PO DAILY #30 tablet
[2018-08-23] MEDS ORDERED: HYDROXYZINE PAMOATE 25 MG CAPSULE PO ONE (15:47)
[2018-08-23] MEDS ORDERED: TETRACAINE HCL 0.5% OPH SOLN 4 ML OD ONE (15:54)
[2018-08-23 17:27] LABS: CHLAM PCR NOT DETECTED (NOT DETECT); GON PCR NOT DETECTED (NOT DETECT)
== END 2018-08-23 16:07 | disposition home or self-care (01) ==
LOC: ER 15:12
DX: R21 Rash and other nonspecific skin eruption (principal); R05 Cough; Z79.899 Other long term (current) drug therapy; F17.200 Nicotine dependence, unspecified, uncomplicated; I10 Essential (primary) hypertension; J44.9 Chronic obstructive pulmonary disease, unspecified
CPT/HCPCS: 99283; 96374; 87491; 87591; J3490; J0696

== ENCOUNTER 2018-09-27 09:09 | Emergency (ER) | payer SELFPAY ==
[2018-09-27 09:19] VITALS: BP 171/94
--- NOTE | 2018-09-27 09:36 | ER Document Report ---
HPI - HPI Patient complains to provider of: FB in ear Time Seen by Provider: 09/27/18 09:29 Onset: This morning Onset/Duration: Sudden Quality of pain: Achy Pain Level: 1 Context: Patient presents complaining of a piece of a Q-tip stuck in his right ear. Patient denies any blood from the ear or any drainage. Associated Symptoms: Earache Exacerbated by: Denies Relieved by: Denies Similar symptoms previously: No Recently seen / treated by doctor: No - ROS ROS below otherwise negative: Yes Systems Reviewed and Negative: Yes All other systems reviewed and negative - CONSTITUTIONAL Constitutional: DENIES: Fever, Chills - EENT EENT: REPORTS: Ear Pain. DENIES: Sore Throat, Eye problems - DERM Skin Color: Normal Skin Problems: None Past Medical History - General Information source: Patient - Social History Smoking Status: Current Every Day Smoker Chew tobacco use (# tins/day): No Smoking Education Provided: Yes Frequency of alcohol use: None Drug Abuse: None Occupation: Construction Family History: Malignancy, DM, Reviewed & Not Pertinent Patient has suicidal ideation: No Patient has homicidal ideation: No - Past Medical History Cardiac Medical History: Reports: Hx Hypercholesterolemia, Hx Hypertension Pulmonary Medical History: Reports: Hx COPD Renal/ Medical History: Denies: Hx Peritoneal Dialysis Musculoskeletal Medical History: Reports Hx Musculoskeletal Trauma Psychiatric Medical History: Reports: Hx Depression Traumatic Medical History: Reports: Hx Fractures - both heels Past Surgical History: Reports: Hx Orthopedic Surgery - bilateral heel surgery, reattached thumb - Immunizations Immunizations up to date: No Hx Diphtheria, Pertussis, Tetanus Vaccination: No Vertical Provider Document - CONSTITUTIONAL Agree With Documented VS: Yes Exam Limitations: No Limitations General Appearance: WD/WN, No Apparent Distress - INFECTION CONTROL TRAVEL OUTSIDE OF THE [place] IN LAST 30 DAYS: No - HEENT HEENT: Atraumatic, Normocephalic Notes: Visible foreign body to right external auditory canal, no mastoid tenderness, no drainage noted to right ear - NECK Neck: Normal Inspection, Supple - RESPIRATORY Respiratory: No Respiratory Distress - BACK Back: Normal Inspection - MUSCULOSKELETAL/EXTREMETIES Musculoskeletal/Extremeties: MAEW - NEURO Level of Consciousness: Awake, Alert, Appropriate Motor/Sensory: No Motor Deficit - DERM Integumentary: Warm, Dry, No Rash Course - Re-evaluation Re-evalutation: 09/27/18 09:38 Foreign body removed from right external auditory canal with alligator forceps. Patient tolerated well. Normal right TM. No trauma noted to right external auditory canal. - Vital Signs Vital signs: Temp Pulse Resp BP Pulse Ox 98.3 F 54 L 16 171/94 H 98 09/27/18 09:17 09/27/18 09:17 09/27/18 09:17 09/27/18 09:17 09/27/18 09:17 Discharge - Discharge Clinical Impression: foreign body removed from ear Condition: Stable Disposition: HOME, SELF-CARE Instructions: Foreign Object in the Ear ([facility]) Additional Instructions: Return immediately for any new or worsening symptoms Followup with your primary care provider, call tomorrow to make a followup appointment Forms: Smoking Cessation Education Referrals: [facility] [Provider Group] - Follow up as needed
== END 2018-09-27 09:41 | disposition home or self-care (01) ==
LOC: ER 09:09
DX: T16.1XXA Foreign body in right ear, initial encounter (principal); X58.XXXA Exposure to other specified factors, initial encounter
CPT/HCPCS: 99282

== ENCOUNTER 2018-10-25 16:35 | Emergency (ER) | payer SELFPAY ==
--- NOTE | 2018-10-25 17:00 | ER Document Report ---
ED Medical Screen (RME) - General Chief Complaint: STD Exposure Stated Complaint: URINARY ISSUE/MED REFILL Time Seen by Provider: 10/25/18 16:54 Mode of Arrival: Ambulatory Information source: Patient Notes: Patient presents emergency department with complaints of possible STD. He reports he recently received oral sex. Did not use protection. Now he has a sore on his penis. He treated it with hydrogen peroxide now the area is white. He denies penile discharge he denies testicular pain reports he sometimes has trouble voiding. Also reports he is having trouble sleeping and has history of high blood pressure is not taking his medication for his blood pressure or his depression. Does not have a primary care provider. Denies symptoms such as fever vomiting diarrhea. Denies chest pain shortness of breath. Reports no other symptoms except the sore on his penis. I have greeted and performed a rapid initial assessment of this patient. A comprehensive ED assessment and evaluation of the patient, analysis of test results and completion of the medical decision making process will be conducted by additional ED providers. Dictation of this chart was performed using myThings software; therefore, there may be some unintended grammatical errors. TRAVEL OUTSIDE OF THE [place] IN LAST 30 DAYS: No - Related Data Allergies/Adverse Reactions: No Known Allergies Allergy (Verified 09/27/18 09:13) Past Medical History - Past Medical History Cardiac Medical History: Reports: Hx Hypercholesterolemia, Hx Hypertension Pulmonary Medical History: Reports: Hx COPD Renal/ Medical History: Denies: Hx Peritoneal Dialysis Musculoskeltal Medical History: Reports Hx Musculoskeletal Trauma Psychiatric Medical History: Reports: Hx Depression Traumatic Medical History: Reports: Hx Fractures - both heels Past Surgical History: Reports: Hx Orthopedic Surgery - bilateral heel surgery, reattached thumb - Immunizations Immunizations up to date: No Hx Diphtheria, Pertussis, Tetanus Vaccination: No Physical Exam - Vital signs Vitals: Temp Pulse Resp BP Pulse Ox 98.9 F 61 20 175/89 H 100 10/25/18 16:43 10/25/18 16:43 10/25/18 16:43 10/25/18 16:43 10/25/18 16:43 Course - Vital Signs Vital signs: Temp Pulse Resp BP Pulse Ox 98.9 F 61 20 175/89 H 100 10/25/18 16:43 10/25/18 16:43 10/25/18 16:43 10/25/18 16:43 10/25/18 16:43
[2018-10-25 17:31] LABS: APPEARANCE,URINE CLEAR; BILIRUBIN,URINE NEGATIVE (NEGATIVE); COLOR,URINE YELLOW; GLUCOSE, URINE NEGATIVE (NEGATIVE); KETONES,URINE NEGATIVE (NEGATIVE); LEUKOCYTE ESTERASE,URINE NEGATIVE (NEGATIVE); NITRITE,URINE NEGATIVE (NEGATIVE); PROTEIN,URINE NEGATIVE (NEGATIVE); URINE SPECIFIC GRAVITY 1.021
[2018-10-25 17:40] LABS: ABSOLUTE BASOPHILS # (AUTO) 0.1 10^3/uL (0.0-0.2); ABSOLUTE EOSINOPHILS # (AUTO) 0.3 10^3/uL (0.0-0.6); ABSOLUTE LYMPHOCYTES (AUTO) 2.7 10^3/uL (0.5-4.7); ABSOLUTE MONOCYTES (AUTO) 0.9 10^3/uL (0.1-1.4); ABSOLUTE NEUT (AUTO) 8.7 10^3/uL (1.7-8.2); BASOPHILS % (AUTO) 0.6 % (0-2); EOSINOPHILS % (AUTO) 2.1 % (0-6); HEMATOCRIT 43.2 % (37.9-51.0); HEMOGLOBIN 14.5 g/dL (13.5-17.0); LYMPHOCYTES % (AUTO) 21.4 % (13-45); MEAN CORPUSCULAR HGB CONC 33.6 g/dL (32.0-36.0); MEAN CORPUSCULAR VOLUME 95 fl (80-97); PLATELET COUNT 299 10^3/uL (150-450); RED BLOOD COUNT 4.55 10^6/uL (4.35-5.55); RED CELL DISTRIBUTION WIDTH 15.3 % (11.5-14.0); SEGMENTED NEUTROPHILS % (AUTO) 68.9 % (42-78); TOTAL CELLS COUNTED % (AUTO) 100 %; WHITE BLOOD COUNT 12.6 10^3/uL (4.0-10.5)
[2018-10-25 17:54] LABS: ALANINE AMINOTRANSFERASE 32 U/L (21-72); ALBUMIN 4.4 g/dL (3.5-5.0); ALKALINE PHOSPHATASE 69 U/L (38-126); ANION GAP 12 (5-19); ASPARTATE AMINO TRANSFERASE 30 U/L (17-59); BILIRUBIN,DIRECT 0.3 mg/dL (0.0-0.4); BILIRUBIN,TOTAL 0.3 mg/dL (0.2-1.3); BLOOD UREA NITROGEN 18 mg/dL (7-20); CALCIUM 9.4 mg/dL (8.4-10.2); CARBON DIOXIDE 26 mmol/L (22-30); CHLORIDE 100 mmol/L (98-107); GLUCOSE 113 mg/dL (75-110); POTASSIUM 4.2 mmol/L (3.6-5.0); SODIUM 137.6 mmol/L (137-145)
[2018-10-25] MEDS ORDERED: LISINOPRIL 10 MG TABLET PO ONE (19:22)
[2018-10-25] MEDS ORDERED: CEFTRIAXONE INJ 250 MG VIAL IM ONE (19:22)
[2018-10-25] MEDS ORDERED: LIDOCAINE 1% INJ-PF (10 MG/ML) 30 ML SDV NEB ONE (19:22)
[2018-10-25] MEDS ORDERED: PENICILLIN G BENZATHINE 1.2 MILLION UNIT/2 ML DISP.SYRIN IM ONE (19:22)
[2018-10-25] MEDS ORDERED: AZITHROMYCIN 250 MG TABLET PO ONE (19:22)
--- NOTE | 2018-10-25 19:25 | ER Document Report ---
ED General - General Chief Complaint: STD Exposure Stated Complaint: URINARY ISSUE/MED REFILL Time Seen by Provider: 10/25/18 16:54 Mode of Arrival: Ambulatory Notes: Patient is a 52-year-old male with past medical history of essential hypertension who presents with concerns of being out of his blood pressure medication as well as having a possible genital ulcer. Patient reports that he developed an ulceration to the right side of his penis just below the glans penis several days ago. States that he poured hydrogen peroxide on the area at the seem to make the area worse. States that he had oral sex approximately 1 week ago, is concerned that he may have a sexual transmitted infection. He describes the ulceration area as being a mild to moderate burning, constant, discomfort. Touching the area worsens the pain. Nothing improves the pain. Denies history of similar symptoms in the past. He is also requesting a refill of his lisinopril while he is here. TRAVEL OUTSIDE OF THE [place] IN LAST 30 DAYS: No - Related Data Allergies/Adverse Reactions: No Known Allergies Allergy (Verified 09/27/18 09:13) Past Medical History - General Information source: Patient - Social History Smoking Status: Current Every Day Smoker Chew tobacco use (# tins/day): No Frequency of alcohol use: None Drug Abuse: None Lives with: Alone Family History: Malignancy, DM, Reviewed & Not Pertinent Patient has suicidal ideation: No Patient has homicidal ideation: No - Past Medical History Cardiac Medical History: Reports: Hx Hypercholesterolemia, Hx Hypertension Pulmonary Medical History: Reports: Hx COPD Renal/ Medical History: Denies: Hx Peritoneal Dialysis Musculoskeletal Medical History: Reports Hx Musculoskeletal Trauma Psychiatric Medical History: Reports: Hx Depression Traumatic Medical History: Reports: Hx Fractures - both heels Past Surgical History: Reports: Hx Orthopedic Surgery - bilateral heel surgery, reattached thumb - Immunizations Immunizations up to date: No Hx Diphtheria, Pertussis, Tetanus Vaccination: No Review of Systems - Review of Systems Notes: Constitutional: Negative for fever. HENT: Negative for sore throat. Eyes: Negative for visual changes. Cardiovascular: Negative for chest pain. Respiratory: Negative for shortness of breath. Gastrointestinal: Negative for abdominal pain, vomiting or diarrhea. Genitourinary: Positive for penile lesion Musculoskeletal: Negative for back pain. Skin: Negative for rash. Neurological: Negative for headaches, weakness or numbness. 10 point ROS negative except as marked above and in HPI. Physical Exam - Vital signs Vitals: Temp Pulse Resp BP Pulse Ox 98.9 F 61 20 175/89 H 100 10/25/18 16:43 10/25/18 16:43 10/25/18 16:43 10/25/18 16:43 10/25/18 16:43 Interpretation: Hypertensive Notes: PHYSICAL EXAMINATION: GENERAL: Well-appearing, well-nourished and in no acute distress. HEAD: Atraumatic, normocephalic. EYES: Pupils equal round and reactive to light, extraocular movements intact, sclera anicteric, conjunctiva are normal. ENT: nares patent, oropharynx clear without exudates. Moist mucous membranes. NECK: Normal range of motion, supple without lymphadenopathy LUNGS: Breath sounds clear to auscultation bilaterally and equal. No wheezes rales or rhonchi. HEART: Regular rate and rhythm without murmurs : Area of what appears to be an abrasion versus ulceration just below the glans penis on the right of the penis. No testicular lesions. No urethral discharge. No tenderness on palpation of the epididymis or testicles. Positive cremaster reflex bilaterally. ABDOMEN: Soft, nontender, normoactive bowel sounds. No guarding, no rebound. No masses appreciated. EXTREMITIES: Normal range of motion, no pitting or edema. No cyanosis. NEUROLOGICAL: No focal neurological deficits. Moves all extremities spontaneously and on command. PSYCH: Normal mood, normal affect. SKIN: Warm, Dry, normal turgor, no rashes or lesions noted. Course - Re-evaluation Re-evalutation: 10/25/18 19:24 Patient presents with concerns of possible STI exposure. Patient has a small mild ulcerating lesion along the right border of his penis just below the glans penis. No testicle tenderness, swelling or epididymal tenderness. Normal direct testicular tenderness. Vitals are within acceptable limits with exception of essential hypertension and the patient is currently off all of his antihypertensive medications. The patient will be empirically treated with ceftriaxone, penicillin, and azithromycin. He has also been restarted on his lisinopril here in the emergency department and I given him a 3-month supply for home. At this time will discharge with return precautions and follow-up recommendations. Verbal discharge instructions given a the bedside and opportunity for questions given. Medication warnings reviewed. Patient is in agreement with this plan and has verbalized understanding of return precautions and the need for primary care follow-up in the next 24-72 hours. - Vital Signs Vital signs: Temp Pulse Resp BP Pulse Ox 98.9 F 61 20 175/89 H 100 10/25/18 16:43 10/25/18 16:43 10/25/18 16:43 10/25/18 16:43 10/25/18 16:43 - Laboratory Result Diagrams: 10/25/18 17:00 10/25/18 17:00 Laboratory results interpreted by me: 10/25/18 10/25/18 10/25/18 17:00 17:00 17:00 WBC 12.6 H RDW 15.3 H Absolute Neutrophils 8.7 H Glucose 113 H Urine Urobilinogen 2.0 H Discharge - Discharge Clinical Impression: Penile ulcer, Essential hypertension, Possible exposure to STD Condition: Good Disposition: HOME, SELF-CARE Additional Instructions: You need to use protection every time you have sex. Failure to do so can result in transmission of infections or unintended . You have been treated for an sexually transmitted infection (STI) today. All of your partners should be tested and treated as they are also likely to be infected. Please return if you develop abdominal pain, fever, persistent vomiting, or any other symptoms that are concerning to you. Please follow-up at the local health department for STI testing. Address: [address] [place] [address] Hours: Fri-Fri 8am-4pm Th 12p-4p Fri 8a-4p You were seen today for blood pressure that was high. This is a long-term risk factor for multiple medical problems including heart attack and stroke. However, the blood pressure in of itself will not cause you to have an acute stroke or heart attack over the course of just several days or weeks. You need to have a gradual reduction of your blood pressure back to normal levels over the next several months in conjunction with your primary care physician. Return if you develop headache, weakness, numbness, chest pain, pass out, or have any other symptoms that are concerning to you. Prescriptions: Lisinopril 20 mg PO DAILY #30 tablet
[2018-10-25 19:31] LABS: CHLAM PCR NOT DETECTED (NOT DETECT); GON PCR NOT DETECTED (NOT DETECT)
[2018-10-26 02:16] VITALS: BP 164/100
== END 2018-10-25 20:55 | disposition home or self-care (01) ==
LOC: ER 16:35
DX: N48.5 Ulcer of penis (principal); Z20.2 Contact with and (suspected) exposure to infections with a predominantly sexual mode of transmission; I10 Essential (primary) hypertension; T46.4X6A Underdosing of angiotensin-converting-enzyme inhibitors, initial encounter; Z91.128 Patient's intentional underdosing of medication regimen for other reason; Z91.14 Patient's other noncompliance with medication regimen; F17.200 Nicotine dependence, unspecified, uncomplicated; J44.9 Chronic obstructive pulmonary disease, unspecified
CPT/HCPCS: 94640; 99283; 96372; 36415; 85025; 80053; 81001; 87491; 87591; J3490; J0561; J0696

== ENCOUNTER 2018-11-02 11:28 | Emergency (ER) | payer SELFPAY ==
[2018-11-02] MEDS ORDERED: HYDROXYZINE PAMOATE 25 MG CAPSULE PO ONE (11:59)
--- NOTE | 2018-11-02 12:03 | ER Document Report ---
ED Medical Screen (RME) - General Chief Complaint: Abdominal Pain Stated Complaint: ABDOMINAL PAIN Time Seen by Provider: 11/02/18 11:55 TRAVEL OUTSIDE OF THE [place] IN LAST 30 DAYS: No - HPI Notes: 11/02/18 12:02 Patient is a 52-year-old male with a history of hypertension and anxiety who presents complaining of feeling a knot in his right lower quadrant of his abdomen that began yesterday. Patient states that is bothering him and he has been very stressed out recently. Patient states that the pain does not radiate and he is not aware of anything that worsens or improves his pain. He is eating and drinking without ability. He is urinating normally and having normal bowel movements. No surgical history to his abdomen. Denies drug allergies. Patient was here recently for an abrasion versus ulceration to his penis and for refill of his blood pressure medications. Denies BURNETTE, fever, neck pain, URI, CP, SOB, n/v/d, dysuria, back pain, or rash. I have treated and performed a rapid initial assessment of this patient. A comprehensive ED assessment and evaluation of the patient, analysis of test results and completion of medical decision making process will be conducted by additional ED providers. PHYSICAL EXAMINATION: GENERAL: Well-appearing, well-nourished and in no acute distress. A&Ox4. Answers questions appropriately. LUNGS: Breath sounds clear to auscultation bilaterally and equal. No wheezes rales or rhonchi. HEART: Regular rate and rhythm without murmurs, rubs, gallops. ABDOMEN: Soft, nondistended abdomen. No guarding, no rebound. Normal bowel sounds present. No CVA tenderness bilaterally. Grossly nontender (cannot elicit thorough abd exam w/o table, however). Extremities: No cyanosis, clubbing, or edema b/l. NEUROLOGICAL: Normal speech, normal gait. PSYCH: Normal mood, normal affect. - Related Data Allergies/Adverse Reactions: No Known Allergies Allergy (Verified 11/02/18 11:29) Past Medical History - Social History Chew tobacco use (# tins/day): No Frequency of alcohol use: Social Drug Abuse: None - Past Medical History Cardiac Medical History: Reports: Hx Hypercholesterolemia, Hx Hypertension Pulmonary Medical History: Reports: Hx COPD Renal/ Medical History: Denies: Hx Peritoneal Dialysis Musculoskeltal Medical History: Reports Hx Musculoskeletal Trauma Psychiatric Medical History: Reports: Hx Depression Traumatic Medical History: Reports: Hx Fractures - both heels Past Surgical History: Reports: Hx Orthopedic Surgery - bilateral heel surgery, reattached thumb - Immunizations Immunizations up to date: No Hx Diphtheria, Pertussis, Tetanus Vaccination: No Physical Exam - Vital signs Vitals: Temp Pulse Resp BP Pulse Ox 98.3 F 62 20 175/93 H 99 11/02/18 11:44 11/02/18 11:44 11/02/18 11:44 11/02/18 11:44 11/02/18 11:44 Course - Vital Signs Vital signs: Temp Pulse Resp BP Pulse Ox 98.3 F 62 20 175/93 H 99 11/02/18 11:44 11/02/18 11:44 11/02/18 11:44 11/02/18 11:44 11/02/18 11:44
[2018-11-02 12:23] LABS: ABSOLUTE BASOPHILS # (AUTO) 0.1 10^3/uL (0.0-0.2); ABSOLUTE EOSINOPHILS # (AUTO) 0.2 10^3/uL (0.0-0.6); ABSOLUTE LYMPHOCYTES (AUTO) 2.3 10^3/uL (0.5-4.7); ABSOLUTE MONOCYTES (AUTO) 0.6 10^3/uL (0.1-1.4); ABSOLUTE NEUT (AUTO) 8.3 10^3/uL (1.7-8.2); BASOPHILS % (AUTO) 0.5 % (0-2); HEMATOCRIT 43.8 % (37.9-51.0); HEMOGLOBIN 14.9 g/dL (13.5-17.0); MEAN CORPUSCULAR HEMOGLOBIN 32.3 pg (27.0-33.4); MEAN CORPUSCULAR VOLUME 95 fl (80-97); MONOCYTES % (AUTO) 5.2 % (3-13); PLATELET COUNT 274 10^3/uL (150-450); RED BLOOD COUNT 4.61 10^6/uL (4.35-5.55); SEGMENTED NEUTROPHILS % (AUTO) 72.3 % (42-78); TOTAL CELLS COUNTED % (AUTO) 100 %; WHITE BLOOD COUNT 11.4 10^3/uL (4.0-10.5)
[2018-11-02 12:29] LABS: APPEARANCE,URINE CLEAR; BILIRUBIN,URINE NEGATIVE (NEGATIVE); COLOR,URINE STRAW; GLUCOSE, URINE NEGATIVE (NEGATIVE); KETONES,URINE NEGATIVE (NEGATIVE); LEUKOCYTE ESTERASE,URINE NEGATIVE (NEGATIVE); NITRITE,URINE NEGATIVE (NEGATIVE); PROTEIN,URINE NEGATIVE (NEGATIVE); URINE SPECIFIC GRAVITY 1.008; UROBILINOGEN,URINE NEGATIVE mg/dL (<2.0)
[2018-11-02 12:48] LABS: ALANINE AMINOTRANSFERASE 32 U/L (21-72); ALBUMIN 4.7 g/dL (3.5-5.0); ALKALINE PHOSPHATASE 75 U/L (38-126); ANION GAP 12 (5-19); ASPARTATE AMINO TRANSFERASE 27 U/L (17-59); BILIRUBIN,DIRECT 0.2 mg/dL (0.0-0.4); BILIRUBIN,TOTAL 0.4 mg/dL (0.2-1.3); BLOOD UREA NITROGEN 12 mg/dL (7-20); CALCIUM 9.6 mg/dL (8.4-10.2); CARBON DIOXIDE 28 mmol/L (22-30); CHLORIDE 102 mmol/L (98-107); GLUCOSE 94 mg/dL (75-110); POTASSIUM 4.7 mmol/L (3.6-5.0); SODIUM 141.8 mmol/L (137-145); TOTAL PROTEIN 7.3 g/dL (6.3-8.2)
[2018-11-02] MEDS ORDERED: KETOROLAC TROMETHAMINE INJ/PF 30 MG/1 ML SDV IV ONE (12:53)
--- NOTE | 2018-11-02 14:02 | RADIOLOGY REPORT (SQ) ---
EXAM DESCRIPTION: CT ABD/PELVIS WITH IV ONLY COMPLETED DATE/TIME: 11/02/2018 1:43 pm REASON FOR STUDY: RLQ pain COMPARISON: 12/06/2017 TECHNIQUE: CT scan of the abdomen and pelvis performed using helical scanning technique with dynamic intravenous contrast injection. No oral contrast. Images reviewed with lung, soft tissue, and bone windows. Reconstructed coronal and sagittal MPR images reviewed. Delayed images for evaluation of the urinary system also acquired. All images stored on PACS. All CT scanners at this facility use dose modulation, iterative reconstruction, and/or weight based d osing when appropriate to reduce radiation dose to as low as reasonably achievable (ALARA). [facility]: Dose Right [facility]: CareDose [facility]: Dose Right [facility]: Teradose 4D [facility]: Mama CONTRAST TYPE AND DOSE: contrast/concentration: Isovue 350.00 mg/ml; Total Contrast Delivered: 99.0 ml; Total Saline Delivered: 70.0 ml RENAL FUNCTION: GFR > 60. RADIATION DOSE: CT Rad equipment meets quality standard of care and radiation dose reduction techniq ues were employed. CTDIvol: 8.3 - 11.8 mGy. DLP: 1049 mGy-cm.. LIMITATIONS: None. FINDINGS: LOWER CHEST: No significant findings. No nodules or infiltrates. LIVER: Normal size. No masses. No dilated ducts. SPLEEN: Normal size. No focal lesions. PANCREAS: No masses. No significant calcifications. No adjacent inflammation or peripancreatic fluid collections. Pancreatic duct not dilated. GALLBLADDER: No identified stones by CT criteria. No inflammatory changes to suggest cholecystitis. ADRENAL GLANDS: No significant masses or asymmetry. RIGHT KIDNEY AND URETER: No solid masses. No significant calcifications. No hydronephrosis or hyd roureter. LEFT KIDNEY AND URETER: No solid masses. No significant calcifications. No hydronephrosis or hydr oureter. AORTA AND VESSELS: No aneurysm. No dissection. Renal arteries, SMA, celiac without stenosis. Calcifi c atherosclerosis. RETROPERITONEUM: No retroperitoneal adenopathy, hemorrhage or masses. BOWEL AND PERITONEAL CAVITY: No masses or inflammatory changes. No free fluid or peritoneal masses. APPENDIX: Normal. PELVIS: No mass. No free fluid. Normal bladder. ABDOMINAL WALL: No masses. No hernias. BONES: No significant or acute findings. OTHER: No other significant finding. IMPRESSION: No CT findings to explain right lower quadrant abdominal pain. Normal appendix. TECHNICAL DOCUMENTATION: JOB ID: [id number] Quality ID # [id number]: Final reports with documentation of one or more dose reduction techniques (e.g., Au tomated exposure control, adjustment of the mA and/or kV according to patient size, use of iterative reconstruction technique) 2010 [employer]- All Rights Reserved Reading location - IP/workstation name: [email or web address]
--- NOTE | 2018-11-02 14:35 | ER Document Report ---
ED GI/ - General Chief Complaint: Abdominal Pain Stated Complaint: ABDOMINAL PAIN Time Seen by Provider: 11/02/18 11:55 Information source: Patient Notes: 52-year-old male who presents today with the onset of some intermittent right lower quadrant abdominal pain. He states nausea without vomiting. He denies any radiation. He denies any aggravating or relieving factors. He denies any dysuria, testicular pain or swelling, or fevers. Patient was seen here recently for possible lesion to his penis. He was treated with STI medications. He states the lesion is resolved. He denies any new sexual partners. Patient is very concerned about cancer. He would like to rule out liver and pancreatic cancer. He has not lost any weight. TRAVEL OUTSIDE OF THE [place] IN LAST 30 DAYS: No - Related Data Allergies/Adverse Reactions: No Known Allergies Allergy (Verified 11/02/18 11:29) Past Medical History - Social History Smoking Status: Current Every Day Smoker Chew tobacco use (# tins/day): No Frequency of alcohol use: Social Drug Abuse: None Family History: Malignancy, DM, Reviewed & Not Pertinent Patient has suicidal ideation: No Patient has homicidal ideation: No - Past Medical History Cardiac Medical History: Reports: Hx Hypercholesterolemia, Hx Hypertension Pulmonary Medical History: Reports: Hx COPD Renal/ Medical History: Denies: Hx Peritoneal Dialysis Musculoskeletal Medical History: Reports Hx Musculoskeletal Trauma Psychiatric Medical History: Reports: Hx Depression Traumatic Medical History: Reports: Hx Fractures - both heels Past Surgical History: Reports: Hx Orthopedic Surgery - bilateral heel surgery, reattached thumb - Immunizations Immunizations up to date: No Hx Diphtheria, Pertussis, Tetanus Vaccination: No Review of Systems - Review of Systems Constitutional: denies: Fever EENT: denies: Eye discharge, Nose discharge Respiratory: denies: Short of breath Gastrointestinal: denies: Vomiting Genitourinary: denies: Dysuria Musculoskeletal: denies: Leg swelling Skin: Other - no hives. denies: Rash Neurological/Psychological: Other - no slurred speech -: Yes All other systems reviewed and negative Physical Exam - Vital signs Vitals: Temp Pulse Resp BP Pulse Ox 98.3 F 62 20 175/93 H 99 11/02/18 11:44 11/02/18 11:44 11/02/18 11:44 11/02/18 11:44 11/02/18 11:44 Notes: Reviewed vital signs and nursing note as charted by RN. CONSTITUTIONAL: Alert and oriented and responds appropriately to questions. Well-appearing; well-nourished HEAD: Normocephalic; atraumatic EYES: Sclerae non-icteric ENT: Normal nose; no rhinorrhea; moist mucous membranes; pharynx without lesions noted NECK: Supple without meningismus; non-tender; no cervical lymphadenopathy, no masses CARD: Regular rate and rhythm; no murmurs; symmetric distal pulses RESP: Normal chest excursion without splinting or tachypnea; breath sounds clear and equal bilaterally ABD/GI: Normal bowel sounds; non-distended; soft, currently nontender to deep palpation of all 4 quadrants of the abdomen. I am not able to palpate any distinct masses. No abdominal bruits GI/: Patient has no inguinal lesions or masses, no testicular pain or swelling, no penile lesions, no discharge from the meatus BACK: The back appears normal and is non-tender to palpation EXT: Normal ROM in all joints; non-tender to palpation; no edema SKIN: No acute lesions noted NEURO: CN 2-12 intact; 5/5 bilateral upper and lower extremity strength with sensation intact to light touch PSYCH: The patient's mood and manner are appropriate. Grooming and personal hygiene are appropriate. Course - Re-evaluation Re-evalutation: Given the above history and physical we will order belly labs, liver panel, lipase, CT scan of the abdomen and pelvis, urine analysis and reassess. Very minimal pain. Vital signs as recorded. 11/02/18 14:38 CT scan and labs as recorded. Patient has still no tenderness. CT scan shows no obvious masses, lesions, with a normal appendix. Vital signs stable. No tenderness on repeat exam. Given the above history and physical, I do not believe the patient requires any further imaging or laboratory work at this time. No upper abdominal tenderness either subjectively or objectively. Strict return precautions have been explained. We have provided an outpatient follow-up. Patient understands the importance of continuing his blood pressure medications were previously prescribed. - Vital Signs Vital signs: Temp Pulse Resp BP Pulse Ox 97.8 F 62 18 216/82 H 98 11/02/18 14:10 11/02/18 14:10 11/02/18 14:10 11/02/18 14:10 05/27/19 14:10 - Laboratory Result Diagrams: 11/02/18 12:11 11/02/18 12:11 Laboratory results interpreted by me: 11/02/18 12:11 WBC 11.4 H RDW 15.0 H Absolute Neutrophils 8.3 H Discharge - Discharge Clinical Impression: Right lower quadrant abdominal pain Condition: Good Disposition: HOME, SELF-CARE Additional Instructions: Come back immediately for any worsening pain, change in location or quality of pain, fevers or vomiting, inability urinate, or any other acute problems. Please follow-up with the primary care physician that we have referred you to as discussed.
[2018-11-02 14:43] VITALS: BP 139/92
== END 2018-11-02 14:40 | disposition home or self-care (01) ==
LOC: ER 11:28
DX: R10.31 Right lower quadrant pain (principal); R11.0 Nausea; I10 Essential (primary) hypertension; J44.9 Chronic obstructive pulmonary disease, unspecified; F17.200 Nicotine dependence, unspecified, uncomplicated
CPT/HCPCS: 99284; 96374; 36415; 85025; 80053; 81001; 74177; J1885

== ENCOUNTER 2018-12-10 12:55 | Emergency (ER) | payer SELFPAY ==
[2018-12-10 13:02] VITALS: BP 161/87
--- NOTE | 2018-12-10 13:14 | ER Document Report ---
ED Medical Screen (RME) - General Chief Complaint: Depression Stated Complaint: DEPRESSION Time Seen by Provider: 12/10/18 13:09 Mode of Arrival: Ambulatory Information source: Patient Notes: 52-year-old male presented to ED for complaint of not being able to stop thinking about his family and his kids who live in [place]. He states he has a history of depression and was seen at a alcohol detox center and started on depression medicines. He states he ran out of the medicine and did not have any refills and is not been able to sleep or drink or do anything since then. He states his boss brought him to the emergency room to get checked. Father with, with him. He states he does smoke a pack a day but does not drink or do any recreational drugs l. 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 He states he just cannot sleep or do anything. I have greeted and performed a rapid initial assessment of this patient. A comprehensive ED assessment and evaluation of the patient, analysis of test results and completion of medical decision making process will be conducted by an additional ED providers. Dictation of this chart was performed using voice recognition software; therefore, there may be some unintended grammatical errors. TRAVEL OUTSIDE OF THE [place] IN LAST 30 DAYS: No - Related Data Allergies/Adverse Reactions: No Known Allergies Allergy (Verified 12/10/18 12:57) Past Medical History - Past Medical History Cardiac Medical History: Reports: Hx Hypercholesterolemia, Hx Hypertension Pulmonary Medical History: Reports: Hx COPD Renal/ Medical History: Denies: Hx Peritoneal Dialysis Musculoskeltal Medical History: Reports Hx Musculoskeletal Trauma Psychiatric Medical History: Reports: Hx Depression Traumatic Medical History: Reports: Hx Fractures - both heels Past Surgical History: Reports: Hx Orthopedic Surgery - bilateral heel surgery, reattached thumb - Immunizations Immunizations up to date: No Hx Diphtheria, Pertussis, Tetanus Vaccination: No Physical Exam - Vital signs Vitals: Temp Pulse Resp BP Pulse Ox 98.7 F 83 20 161/87 H 97 12/10/18 13:12/10/18 13:12/10/18 13:12/10/18 13:12/10/18 13:01 Course - Vital Signs Vital signs: Temp Pulse Resp BP Pulse Ox 98.7 F 83 20 161/87 H 97 12/10/18 13:01 12/10/18 13:01 12/10/18 13:01 12/10/18 13:01 12/10/18 13:01
[2018-12-10 13:59] LABS: ABSOLUTE EOSINOPHILS # (AUTO) 0.1 10^3/uL (0.0-0.6); ABSOLUTE LYMPHOCYTES (AUTO) 2.3 10^3/uL (0.5-4.7); ABSOLUTE MONOCYTES (AUTO) 0.6 10^3/uL (0.1-1.4); BASOPHILS % (AUTO) 0.4 % (0-2); EOSINOPHILS % (AUTO) 1.2 % (0-6); HEMATOCRIT 42.9 % (37.9-51.0); HEMOGLOBIN 14.8 g/dL (13.5-17.0); LYMPHOCYTES % (AUTO) 18.9 % (13-45); MEAN CORPUSCULAR HEMOGLOBIN 31.9 pg (27.0-33.4); MEAN CORPUSCULAR HGB CONC 34.6 g/dL (32.0-36.0); MEAN CORPUSCULAR VOLUME 92 fl (80-97); MONOCYTES % (AUTO) 4.8 % (3-13); PLATELET COUNT 282 10^3/uL (150-450); RED BLOOD COUNT 4.65 10^6/uL (4.35-5.55); RED CELL DISTRIBUTION WIDTH 14.3 % (11.5-14.0); SEGMENTED NEUTROPHILS % (AUTO) 74.7 % (42-78); TOTAL CELLS COUNTED % (AUTO) 100 %; WHITE BLOOD COUNT 12.1 10^3/uL (4.0-10.5)
[2018-12-10 14:08] LABS: APPEARANCE,URINE SLIGHTLY-CLOUDY; BILIRUBIN,URINE NEGATIVE (NEGATIVE); COLOR,URINE YELLOW; GLUCOSE, URINE 150 mg/dL (NEGATIVE); KETONES,URINE TRACE mg/dL (NEGATIVE); LEUKOCYTE ESTERASE,URINE NEGATIVE (NEGATIVE); NITRITE,URINE NEGATIVE (NEGATIVE); PROTEIN,URINE NEGATIVE (NEGATIVE); URINE SPECIFIC GRAVITY 1.029; UROBILINOGEN,URINE NEGATIVE mg/dL (<2.0)
[2018-12-10 14:16] LABS: ALANINE AMINOTRANSFERASE 24 U/L (21-72); ALBUMIN 4.6 g/dL (3.5-5.0); ALKALINE PHOSPHATASE 80 U/L (38-126); ANION GAP 9 (5-19); ASPARTATE AMINO TRANSFERASE 26 U/L (17-59); BILIRUBIN,DIRECT 0.3 mg/dL (0.0-0.4); BILIRUBIN,TOTAL 0.4 mg/dL (0.2-1.3); BLOOD UREA NITROGEN 20 mg/dL (7-20); CALCIUM 9.7 mg/dL (8.4-10.2); CARBON DIOXIDE 28 mmol/L (22-30); CHLORIDE 102 mmol/L (98-107); GLUCOSE 109 mg/dL (75-110); LIPASE 58.6 U/L (23-300); POTASSIUM 4.7 mmol/L (3.6-5.0); TOTAL PROTEIN 7.4 g/dL (6.3-8.2)
[2018-12-10 14:21] LABS: URINE AMPHETAMINES SCREEN NEGATIVE; URINE BARBITURATES SCREEN NEGATIVE; URINE BENZODIAZEPINES SCREEN NEGATIVE; URINE COCAINE SCREEN NEGATIVE; URINE MARIJUANA (THC) SCREEN UNCONFIRMED POSITIVE; URINE METHADONE SCREEN NEGATIVE; URINE PHENCYCLIDINE SCREEN NEGATIVE
--- NOTE | 2018-12-10 15:08 | ER Document Report ---
ED General - General Chief Complaint: Depression Stated Complaint: DEPRESSION Time Seen by Provider: 12/10/18 13:09 Mode of Arrival: Ambulatory Notes: 52-year-old male with history of depression and substance abuse presented to ED for complaint of not being able to stop thinking about his family and his kids who live in [place]. He was recently seen at an alcohol detox center and was started on Zyprexa and Seroquel. He states he ran out of his medicine although they were filled on 11/16/2018 and since then has not been able to sleep and complains of anorexia. His boss brought him to the emergency department to get checked. Patient is a pack-a-day smoker but denies recreational drug use. Patient denies suicidal ideations or homicidal ideations. No other complaints TRAVEL OUTSIDE OF THE [place] IN LAST 30 DAYS: No - Related Data Allergies/Adverse Reactions: No Known Allergies Allergy (Verified 12/10/18 12:57) Past Medical History - General Information source: Patient - Social History Smoking Status: Current Every Day Smoker Chew tobacco use (# tins/day): No Frequency of alcohol use: Detox uncommon use Drug Abuse: None Family History: Malignancy, DM, Reviewed & Not Pertinent Patient has suicidal ideation: No Patient has homicidal ideation: No - Past Medical History Cardiac Medical History: Reports: Hx Hypercholesterolemia, Hx Hypertension Pulmonary Medical History: Reports: Hx COPD Renal/ Medical History: Denies: Hx Peritoneal Dialysis Musculoskeletal Medical History: Reports Hx Musculoskeletal Trauma Psychiatric Medical History: Reports: Hx Depression Traumatic Medical History: Reports: Hx Fractures - both heels Past Surgical History: Reports: Hx Orthopedic Surgery - bilateral heel surgery, reattached thumb - Immunizations Immunizations up to date: No Hx Diphtheria, Pertussis, Tetanus Vaccination: No Review of Systems - Review of Systems Constitutional: No symptoms reported EENT: No symptoms reported Cardiovascular: No symptoms reported Respiratory: No symptoms reported Gastrointestinal: No symptoms reported Genitourinary: No symptoms reported Male Genitourinary: No symptoms reported Musculoskeletal: No symptoms reported Skin: No symptoms reported Hematologic/Lymphatic: No symptoms reported Neurological/Psychological: See HPI Physical Exam - Vital signs Vitals: Temp Pulse Resp BP Pulse Ox 98.7 F 83 20 161/87 H 97 12/10/18 13:01 12/10/18 13:01 12/10/18 13:01 12/10/18 13:01 12/10/18 13:01 - Notes Notes: PHYSICAL EXAMINATION: Reviewed vital signs and charting by RN GENERAL: Alert, interacts well. No acute distress. HEAD: Normocephalic, atraumatic. EYES: Pupils equal and round. Extraocular movements intact. ENT: Oral mucosa moist, tongue midline. NECK: Full range of motion. Trachea midline. LUNGS: No respiratory distress. EXTREMITIES: Moves all 4 extremities spontaneously. No edema, No cyanosis. PSYCH: Normal affect, depressed mood. SKIN: Warm, dry, normal turgor. No rashes or lesions noted. Course - Re-evaluation Re-evalutation: 12/10/18 15:05 Overall well-appearing with mildly pressured speech. Patient is requesting medication refill. I spoke with the psych team here who said that he should not be out of his medications and he is identified as a substance abuser. They recommend that I do not refill any of his medications. Patient denies SI/HI. Patient vital signs within normal limits and lab work all within normal limits. He is positive for marijuana on drug screen but everything else is negative. At this time there is nothing else to do and will discharge patient. - Vital Signs Vital signs: Temp Pulse Resp BP Pulse Ox 98.7 F 83 20 161/87 H 97 12/10/18 13:01 12/10/18 13:01 12/10/18 13:01 12/10/18 13:01 12/10/18 13:01 - Laboratory Result Diagrams: 12/10/18 13:45 12/10/18 13:45 Laboratory results interpreted by me: 12/10/18 12/10/18 13:45 13:45 WBC 12.1 H RDW 14.3 H Absolute Neutrophils 9.0 H Urine Glucose (UA) 150 H Urine Ketones TRACE H Discharge - Discharge Clinical Impression: Depression Qualifiers: Depression Type: unspecified Qualified Code(s): F32.9 - Major depressive disorder, single episode, unspecified Condition: Stable Disposition: HOME, SELF-CARE Additional Instructions: You were seen in the emergency department this afternoon for insomnia and not wanting to eat. After discussion with the psych team we will not be able to refill your medications because you should not be out of them at this time and we will not be able to refill them anyways. This is concerning. You will have to follow-up with your outpatient provider. I know this is very challenging but there is nothing we can do here. If you have suicidal ideations, homicidal ideations, or you have any other concerning symptoms please return to the emergency department.
== END 2018-12-10 15:18 | disposition home or self-care (01) ==
LOC: ER 12:55
DX: F32.9 Major depressive disorder, single episode, unspecified (principal); F17.210 Nicotine dependence, cigarettes, uncomplicated; E78.00 Pure hypercholesterolemia, unspecified; I10 Essential (primary) hypertension; J44.9 Chronic obstructive pulmonary disease, unspecified
CPT/HCPCS: 36415; 80053; 80307; 81001; 83690; 84484; 85025; 99284

== ENCOUNTER 2019-03-16 19:57 | Emergency (ER) | payer SELFPAY ==
[2019-03-16] MEDS ORDERED: TETRACAINE HCL 0.5% OPH SOLN 4 ML OD ONE (20:34)
--- NOTE | 2019-03-16 20:36 | ER Document Report ---
ED Medical Screen (RME) - General Chief Complaint: Eye Injury Stated Complaint: RIGHT EYE INJURY Time Seen by Provider: 03/16/19 20:30 Notes: Patient is a 53-year-old male presents emergency department with right eye pain. 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 He states he tried washing it out, but has had no relief. Denies any visual problems. Patient states that this happened yesterday. Exam: Erythema noted to right sclera. I have greeted and performed a rapid initial assessment of this patient. A comprehensive ED assessment and evaluation of the patient, analysis of test results and completion of medical decision making process will be conducted by an additional ED providers. TRAVEL OUTSIDE OF THE [place] IN LAST 30 DAYS: No - Related Data Allergies/Adverse Reactions: No Known Allergies Allergy (Verified 12/10/18 12:57) Past Medical History - Social History Chew tobacco use (# tins/day): No Frequency of alcohol use: None Drug Abuse: None - Past Medical History Cardiac Medical History: Reports: Hx Hypercholesterolemia, Hx Hypertension Pulmonary Medical History: Reports: Hx COPD Renal/ Medical History: Denies: Hx Peritoneal Dialysis Musculoskeltal Medical History: Reports Hx Musculoskeletal Trauma Psychiatric Medical History: Reports: Hx Depression Traumatic Medical History: Reports: Hx Fractures - both heels Past Surgical History: Reports: Hx Orthopedic Surgery - bilateral heel surgery, reattached thumb - Immunizations Immunizations up to date: No Hx Diphtheria, Pertussis, Tetanus Vaccination: No
[2019-03-16] MEDS ORDERED: POLYMYXIN B SULFATE/TMP OPH SOLN (10 ML/ER DISP) OD PRN (23:34)
[2019-03-16] MEDS ORDERED: HYDROCODONE/ACETAMINOPHEN 5-325 MG (6 TAB/ER DISP) PO PRN (23:35)
--- NOTE | 2019-03-16 23:38 | ER Document Report ---
ED Eye Complaint - General Chief Complaint: Eye Injury Stated Complaint: RIGHT EYE INJURY Time Seen by Provider: 03/16/19 20:30 Primary Care Provider: YENI GONZALEZ MD [ACTIVE STAFF] - 03/19/19 Notes: Patient is a 53-year-old male that comes to the emergency department for chief complaint of right eye pain. He states he was working and he thinks either piece of wood or metal got into his eye, this happened over a day ago but the irritation and tears have worsened. He denies loss of vision, but he does have a foreign body sensation. He does not wear contacts or glasses. He denies any other complaints. TRAVEL OUTSIDE OF THE [place] IN LAST 30 DAYS: No - Related Data Allergies/Adverse Reactions: No Known Allergies Allergy (Verified 12/10/18 12:57) Past Medical History - General Information source: Patient - Social History Smoking Status: Current Every Day Smoker Chew tobacco use (# tins/day): No Frequency of alcohol use: None Drug Abuse: None Lives with: Family Family History: Malignancy, DM, Reviewed & Not Pertinent Patient has suicidal ideation: No Patient has homicidal ideation: No - Past Medical History Cardiac Medical History: Reports: Hx Hypercholesterolemia, Hx Hypertension Pulmonary Medical History: Reports: Hx COPD Renal/ Medical History: Denies: Hx Peritoneal Dialysis Musculoskeletal Medical History: Reports Hx Musculoskeletal Trauma Psychiatric Medical History: Reports: Hx Depression Traumatic Medical History: Reports: Hx Fractures - both heels Past Surgical History: Reports: Hx Orthopedic Surgery - bilateral heel surgery, reattached thumb - Immunizations Immunizations up to date: Yes Hx Diphtheria, Pertussis, Tetanus Vaccination: Yes Review of Systems - Review of Systems Constitutional: No symptoms reported EENT: See HPI Cardiovascular: No symptoms reported Respiratory: No symptoms reported Gastrointestinal: No symptoms reported Genitourinary: No symptoms reported Male Genitourinary: No symptoms reported Musculoskeletal: No symptoms reported Skin: No symptoms reported Hematologic/Lymphatic: No symptoms reported Neurological/Psychological: No symptoms reported Physical Exam - Vital signs Vitals: Temp Pulse Resp BP 92.7 F L 54 L 16 146/86 H 03/16/19 19:58 03/16/19 19:58 03/16/19 19:58 03/16/19 19:58 - Notes Notes: GENERAL: Patient appears slightly uncomfortable and restless. No severe distress. HEAD: Normocephalic, atraumatic. EYES: Pupils equal, round, and reactive to light. Extraocular movements intact. Right sclera somewhat injected. No discharge. There is a tiny superficial foreign body in the right outer lower quadrant of the right eye. No fluorescein uptake otherwise. Negative Handy sign. ENT: Oral mucosa moist, tongue midline. Oropharynx unremarkable. Airway patent. Nares patent, no nasal septal hematoma, TM's intact. NECK: Full range of motion. Supple. Trachea midline. LUNGS: Clear to auscultation bilaterally, no wheezes, rales, or rhonchi. No respiratory distress. HEART: Regular rate and rhythm. No murmur ABDOMEN: Soft, non-tender. Non-distended. Bowel sounds present in all 4 quadrants. GENITOURINARY: Deferred EXTREMITIES: Moves all 4 extremities spontaneously. No edema, normal radial and dorsalis pedis pulses bilaterally. No cyanosis. BACK: no cervical, thoracic, lumbar midline tenderness. No saddle anesthesia, normal distal neurovascular exam. Moves all extremities in full range of motion. NEUROLOGICAL: Alert and oriented x3. Normal speech. Cranial nerves II through XII grossly intact. PSYCH: Normal affect, normal mood. SKIN: Warm, dry, normal turgor. No rashes or lesions noted. - HEENT Visual acuity- Right eye: 20/25 Visual acuity- Left eye: 20/50 Visual acuity- Both eyes: 20/20 Corrective lenses worn: No Course - Re-evaluation Re-evalutation: Patient's visual acuity is normal. There actually is a tiny foreign body which appears to be is dark and is so small I cannot tell if it is metal, wood, or other material. Fortunately I was able to easily remove this by lifting it with an 18-gauge needle and then it came off on the needle without difficulty or additional attempts. No additional concerning findings on reevaluation or otherwise. Patient placed on topical antibiotic, referred to ophthalmology, discussed return precautions. Patient states understanding and agreement. - Vital Signs Vital signs: Temp Pulse Resp BP Pulse Ox 97.4 F 52 L 16 157/80 H 100 03/16/19 23:52 03/16/19 23:52 03/16/19 23:52 03/16/19 23:52 03/16/19 23:52 Procedures - Eye Procedure Right eye Foreign body removal: Right - Tiny superficial foreign body removed from the right lower outer quadrant using an 18-gauge needle with a lateral approach, it was lifted off the surface of the cornea with a single attempt without any additional attempts or complications noted. Patient tolerated very well. Fluorescein applied: Right Antibiotic Oinment/Drps Admin: Right eye Slit lamp used: No Eyes picture: 1 - Superficial corneal foreign body location Discharge - Discharge Clinical Impression: Acute right eye pain Corneal foreign body Qualifiers: Encounter type: initial encounter Laterality: right Qualified Code(s): T15.01XA - Foreign body in cornea, right eye, initial encounter Condition: Stable Disposition: HOME, SELF-CARE Instructions: Oral Narcotic Medication ([facility]) Additional Instructions: There was a tiny foreign body on your cornea in the right eye, this was removed. Use the Polytrim eyedrops as prescribed, 1 drop 4 times a day for the next 5 days. Follow-up with the ophthalmology referral listed for recheck, call for your appointment. Take the provided pain medication as needed with oral narcotic precautions listed. Return for any concerning symptoms including developing swelling, discolored discharge, loss of vision, or any other concerning or worsening symptoms. Forms: Return to Work Referrals: YENI GONZALEZ MD [ACTIVE STAFF] - 03/19/19
[2019-03-16 23:53] VITALS: BP 157/80
== END 2019-03-16 23:56 | disposition home or self-care (01) ==
LOC: ER 19:57
DX: T15.01XA Foreign body in cornea, right eye, initial encounter (principal); X58.XXXA Exposure to other specified factors, initial encounter; H57.11 Ocular pain, right eye; F17.200 Nicotine dependence, unspecified, uncomplicated; I10 Essential (primary) hypertension; J44.9 Chronic obstructive pulmonary disease, unspecified
CPT/HCPCS: 65220; J3490 ×2; 99283

== ENCOUNTER 2019-05-28 10:35 | Emergency (ER) | payer SELFPAY ==
[2019-05-28 10:40] VITALS: BP 143/87
--- NOTE | 2019-05-28 10:55 | ER Document Report ---
HPI - HPI Patient complains to provider of: Foreign body in ear Time Seen by Provider: 05/28/19 10:49 Onset: Just prior to arrival Onset/Duration: Sudden Pain Level: 0 Context: Patient states that he was using a Q-tip to clean his ear and the cotton tipped fell off in his ear. Patient denies any ear pain or trauma. Associated Symptoms: Other - Foreign body in the ear Exacerbated by: Denies Relieved by: Denies Similar symptoms previously: No Recently seen / treated by doctor: No - ROS ROS below otherwise negative: Yes Systems Reviewed and Negative: Yes All other systems reviewed and negative - CONSTITUTIONAL Constitutional: DENIES: Fever, Chills - EENT EENT: REPORTS: Ear Pain - discomfort. DENIES: Sore Throat, Eye problems - MUSCULOSKELETAL Musculoskeletal: DENIES: Extremity pain - DERM Skin Color: Normal Skin Problems: None Past Medical History - General Information source: Patient - Social History Smoking Status: Current Every Day Smoker Chew tobacco use (# tins/day): No Frequency of alcohol use: None Drug Abuse: None Occupation: Construction Family History: Malignancy, DM, Reviewed & Not Pertinent Patient has suicidal ideation: No Patient has homicidal ideation: No - Past Medical History Cardiac Medical History: Reports: Hx Hypercholesterolemia, Hx Hypertension Pulmonary Medical History: Reports: Hx COPD Renal/ Medical History: Denies: Hx Peritoneal Dialysis Musculoskeletal Medical History: Reports Hx Musculoskeletal Trauma Psychiatric Medical History: Reports: Hx Depression Traumatic Medical History: Reports: Hx Fractures - both heels Past Surgical History: Reports: Hx Orthopedic Surgery - bilateral heel surgery, reattached thumb - Immunizations Immunizations up to date: Yes Hx Diphtheria, Pertussis, Tetanus Vaccination: Yes Vertical Provider Document - CONSTITUTIONAL Agree With Documented VS: Yes Exam Limitations: No Limitations General Appearance: WD/WN, No Apparent Distress - INFECTION CONTROL TRAVEL OUTSIDE OF THE [place] IN LAST 30 DAYS: No - HEENT HEENT: Atraumatic, Normocephalic Notes: Visible foreign body to right external auditory canal, normal left TM - NECK Neck: Normal Inspection, Supple. negative: Lymphadenopathy-Left, Lymphadenopathy-Right - RESPIRATORY Respiratory: Breath Sounds Normal, No Respiratory Distress - CARDIOVASCULAR Cardiovascular: Regular Rate, Regular Rhythm - BACK Back: Normal Inspection - MUSCULOSKELETAL/EXTREMETIES Musculoskeletal/Extremeties: MAEW - NEURO Level of Consciousness: Awake, Alert, Appropriate Motor/Sensory: No Motor Deficit - DERM Integumentary: Warm, Dry, No Rash Course - Re-evaluation Re-evalutation: 05/28/19 10:55 Right ear foreign body removed with alligator forceps. Patient tolerated procedure well. Patient is requesting a refill of his blood pressure medicine as he recently ran out. Patient last took his dose today. - Vital Signs Vital signs: Temp Pulse Resp BP Pulse Ox 97.6 F 66 18 143/87 H 98 05/28/19 10:49 05/28/19 10:49 05/28/19 10:49 05/28/19 10:49 05/28/19 10:49 Discharge - Discharge Clinical Impression: HTN (hypertension) Qualifiers: Hypertension type: unspecified Qualified Code(s): I10 - Essential (primary) hypertension Foreign body in ear Qualifiers: Encounter type: initial encounter Laterality: right Qualified Code(s): T16.1XXA - Foreign body in right ear, initial encounter Condition: Stable Disposition: HOME, SELF-CARE Instructions: Foreign Object in the Ear ([facility]) Additional Instructions: Return immediately for any new or worsening symptoms Followup with your primary care provider, call tomorrow to make a followup appointment Follow-up with a primary doctor for refills of your blood pressure medication. Prescriptions: Lisinopril 20 mg PO DAILY #30 tablet Referrals: [facility] [Provider Group] - Follow up as needed
== END 2019-05-28 10:54 | disposition home or self-care (01) ==
LOC: ER 10:35
DX: T16.1XXA Foreign body in right ear, initial encounter (principal); X58.XXXA Exposure to other specified factors, initial encounter; Y93.E8 Activity, other personal hygiene; I10 Essential (primary) hypertension; J44.9 Chronic obstructive pulmonary disease, unspecified; F17.200 Nicotine dependence, unspecified, uncomplicated
CPT/HCPCS: 99282

== ENCOUNTER 2019-07-04 17:05 | Emergency (ER) | payer SELFPAY ==
[2019-07-04 18:04] VITALS: BP 149/79
[2019-07-04] MEDS ORDERED: DOXYCYCLINE HYCLATE 100 MG TABLET PO ONE (18:47)
--- NOTE | 2019-07-04 18:52 | ER Document Report ---
ED General - General Chief Complaint: Rash Stated Complaint: RASH Time Seen by Provider: 07/04/19 18:43 Primary Care Provider: [facility] [Provider Group] - Follow up in 3-5 days (for primary care follow up) TRAVEL OUTSIDE OF THE [place] IN LAST 30 DAYS: No - HPI Notes: 53-year-old male to the emergency department with complaints of a rash to his right lower leg that began today. He states that it seems to be getting worse throughout the day. He states he woke up with this rash and it was painful, red, hot. Denies any fevers or chills. 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 He states he did not really notice a rash yesterday. He is not diabetic. He states he has put a lot of things on it today. He has put apple cider vinegar, cortisone cream on it, and he has been washing it constantly. - Related Data Allergies/Adverse Reactions: No Known Allergies Allergy (Verified 05/28/19 10:49) Home Medications: Seraquil, Prozac, Lisinopril Past Medical History - General Information source: Patient - Social History Smoking Status: Current Every Day Smoker Frequency of alcohol use: None Drug Abuse: None Family History: Malignancy, DM, Reviewed & Not Pertinent Patient has suicidal ideation: No Patient has homicidal ideation: No - Past Medical History Cardiac Medical History: Reports: Hx Hypercholesterolemia, Hx Hypertension Pulmonary Medical History: Reports: Hx COPD Renal/ Medical History: Denies: Hx Peritoneal Dialysis Musculoskeletal Medical History: Reports Hx Musculoskeletal Trauma Psychiatric Medical History: Reports: Hx Depression Traumatic Medical History: Reports: Hx Fractures - both heels Past Surgical History: Reports: Hx Orthopedic Surgery - bilateral heel surgery, reattached thumb - Immunizations Immunizations up to date: Yes Hx Diphtheria, Pertussis, Tetanus Vaccination: Yes Review of Systems - Review of Systems Constitutional: denies: Chills, Fever EENT: No symptoms reported Cardiovascular: denies: Chest pain, Palpitations, Dizziness, Lightheaded Respiratory: denies: Cough, Short of breath Gastrointestinal: denies: Abdominal pain, Diarrhea, Nausea, Vomiting Genitourinary: No symptoms reported Musculoskeletal: See HPI, Muscle pain Skin: See HPI, Change in color, Rash Hematologic/Lymphatic: No symptoms reported Neurological/Psychological: No symptoms reported -: Yes All other systems reviewed and negative Physical Exam - Vital signs Vitals: Temp Pulse Resp BP Pulse Ox 97.6 F 80 18 149/79 H 100 07/04/19 18:04 07/04/19 18:04 07/04/19 18:04 07/04/19 18:04 07/04/19 18:04 Interpretation: Normal - General General appearance: Appears well, Alert In distress: None - HEENT Head: Normocephalic, Atraumatic Eyes: Normal Pupils: PERRL - Respiratory Respiratory status: No respiratory distress Chest status: Nontender. No: Accessory muscle use Breath sounds: Normal. No: Rales, Rhonchi, Stridor, Wheezing Chest palpation: Normal - Cardiovascular Rhythm: Regular Heart sounds: Normal auscultation Murmur: No - Abdominal Inspection: Normal Distension: No distension Bowel sounds: Normal Tenderness: No: Tender, McBurney's point, Espinoza's sign, Guarding, Rebound Organomegaly: No organomegaly - Back Back: Normal, Nontender - Extremities General lower extremity: Normal ROM, Normal strength - Skin Skin Moisture: Dry Skin irregularity: other - There is an erythematous and hot rash to the internal aspect of the right lower leg. There is some mild ulcerations but no vesicles. There is no sloughing of the skin. The skin is indurated but there is no fluctuance to suggest abscess. It is not circumferential but there is a little area that is evolving on the lateral aspect of the right lower leg. DP pulses are intact and equal. Cap refill is less than 2 seconds. This area is very tender to palpation. Course - Re-evaluation Re-evalutation: 07/04/19 18:58 Impression: Right lower leg cellulitis. Have marked the area and will go ahead and start on antibioticsdoxycycline and Bactroban. We will also write for Naprosyn. 2-day wound check and he has been encouraged to return if his symptoms worsen such as worsening redness, fevers, purulent drainage, worsening pain. He agrees with the plan - Vital Signs Vital signs: Temp Pulse Resp BP Pulse Ox 97.6 F 80 18 149/79 H 100 07/04/19 18:04 07/04/19 18:04 07/04/19 18:04 07/04/19 18:04 07/04/19 18:04 Discharge - Discharge Clinical Impression: Cellulitis of leg without foot, right Condition: Stable Disposition: HOME, SELF-CARE Instructions: Cellulitis ([facility]) Additional Instructions: TAKE ANTIBIOTICS PRESCRIBED. USE TOPICAL ANTIBIOTICS. ONLY WASH TWICE A DAY WITH WARM SOAPY WATER, THEN PAT DRY AND DRESS WITH TOPICAL ANTIBIOTICS. RETURN IN 2 DAYS FOR A WOUND CHECK. RETURN SOONER IF WORSENING SYMPTOMS SUCH WORSENING REDNESS, FEVERS, WORSENING PAIN. Prescriptions: Mupirocin [Bactroban 2% Ointment 22 gm] 1 applic TP TID #1 tube Doxycycline Hyclate 100 mg PO BID #20 capsule Naproxen [Naprosyn 375 Mg Tablet] 375 mg PO BID #20 tablet Referrals: [facility] [Provider Group] - Follow up in 3-5 days (for primary care follow up)
== END 2019-07-04 19:04 | disposition home or self-care (01) ==
LOC: ER 17:05
DX: L03.115 Cellulitis of right lower limb (principal); F17.200 Nicotine dependence, unspecified, uncomplicated; M79.10 Myalgia, unspecified site; I10 Essential (primary) hypertension; J44.9 Chronic obstructive pulmonary disease, unspecified; F32.9 Major depressive disorder, single episode, unspecified; Z79.899 Other long term (current) drug therapy
CPT/HCPCS: 99282

== ENCOUNTER 2019-07-06 12:04 | Emergency (ER) | payer SELFPAY ==
--- NOTE | 2019-07-06 13:41 | ER Document Report ---
HPI - HPI Patient complains to provider of: wound recheck Time Seen by Provider: 07/06/19 13:35 Onset: Last week Onset/Duration: Better Quality of pain: Burning Severity: Moderate Pain Level: 3 Context: 53-year-old male presents to ED for recheck of cellulitis to the right ankle. He states the area is smaller than it was. He states he just concerned that he might get infection in his blood. He states it does look better than it did. We have discussed continuing treatment as he was instructed. Associated Symptoms: None, Other Exacerbated by: Denies Relieved by: Denies Similar symptoms previously: Yes Recently seen / treated by doctor: Yes - ROS ROS below otherwise negative: Yes - CONSTITUTIONAL Constitutional: DENIES: Fever, Chills - EENT EENT: DENIES: Sore Throat, Ear Pain, Nasal Drainage-Clear, Nasal Drainage- Purulent, Congestion, Eye problems - NEURO Neurology: DENIES: Headache, Weakness, Vision blurred, Dizzinesss / Vertigo - CARDIOVASCULAR Cardiovascular: DENIES: Chest pain - RESPIRATORY Respiratory: DENIES: Trouble Breathing, Coughing - GASTROINTESTINAL Gastrointestinal: DENIES: Abdominal Pain, Nausea, Patient vomiting, Diarrhea, Constipation, Black / Bloody Stools - URINARY Urinary: DENIES: Dysuria, Urgency, Frequency - REPRODUCTIVE Reproductive: DENIES: : - MUSCULOSKELETAL Musculoskeletal: REPORTS: Extremity pain - DERM Skin Color: Normal Skin Problems: Rash Past Medical History - General Information source: Patient - Social History Smoking Status: Current Every Day Smoker Cigarette use (# per day): Yes - Pack per day Smoking Education Provided: Yes - 4 minutes Frequency of alcohol use: None Drug Abuse: None Lives with: Alone Family History: Malignancy, DM, Reviewed & Not Pertinent - Past Medical History Cardiac Medical History: Reports: Hx Hypercholesterolemia, Hx Hypertension Pulmonary Medical History: Reports: Hx COPD Renal/ Medical History: Denies: Hx Peritoneal Dialysis Musculoskeletal Medical History: Reports Hx Musculoskeletal Trauma Skin Medical History: Reports None Psychiatric Medical History: Reports: Hx Anxiety, Hx Depression Traumatic Medical History: Reports: Hx Fractures - both heels Infectious Medical History: Reports: None Past Surgical History: Reports: Hx Orthopedic Surgery - bilateral heel surgery, reattached thumb - Immunizations Immunizations up to date: Yes Hx Diphtheria, Pertussis, Tetanus Vaccination: Yes Vertical Provider Document - CONSTITUTIONAL Agree With Documented VS: Yes Exam Limitations: No Limitations General Appearance: WD/WN, No Apparent Distress - INFECTION CONTROL TRAVEL OUTSIDE OF THE [place] IN LAST 30 DAYS: No - HEENT HEENT: Atraumatic, Normal ENT Exam, Normocephalic, PERRLA - NECK Neck: Normal Inspection, Supple, Thyroid Normal - RESPIRATORY Respiratory: Breath Sounds Normal, No Respiratory Distress - CARDIOVASCULAR Cardiovascular: Regular Rate, Regular Rhythm, No Murmur - GI/ABDOMEN Gastrointestinal: Abdomen Soft, Abdomen Non-Tender, No Organomegaly, Normal Bowel Sounds - BACK Back: Normal Inspection - MUSCULOSKELETAL/EXTREMETIES Musculoskeletal/Extremeties: MAEW, FROM, Tender - NEURO Level of Consciousness: Awake, Alert, Appropriate Motor/Sensory: No Motor Deficit, No Sensory Deficit - DERM Integumentary: Rash - Cellulitis Course - Re-evaluation Re-evalutation: 07/06/19 13:45 Cellulitis is improving he is concerned because he read on the Internet that it can get into blood and cause problems including losing her leg. He is taking his medications as prescribed and cleaning his wounds and putting his antibiotics on. I will will fill his antibiotics and give him a prescription for treatment Keflex. Patient states he does have a doctor for his psych meds but not for his blood pressure medicine. He states he will go to the [facility] to get this followed up with. - Vital Signs Vital signs: Temp Pulse Resp BP Pulse Ox 98.2 F 68 18 160/87 H 99 07/06/19 12:54 07/06/19 12:54 07/06/19 12:54 07/06/19 12:54 07/06/19 12:54 Discharge - Discharge Clinical Impression: Cellulitis of right lower leg Condition: Stable Disposition: HOME, SELF-CARE Additional Instructions: CELLULITIS: You have an infection of your skin and underlying soft tissues called cell ulitis. This is due to bacteria, which can enter through any break in the skin, or even through an irritated hair follicle. Untreated, cellulitis will usually worsen. Antibiotics are required. Usually, warm packs or warm soaks, and elevation of the infected area are recommended. You should start getting better within 24 to 36 hours. Most infections respond quickly to the right medication. Follow-up care is important, however, to check for abscess (boil) formation, unsuspected foreign body, or resistant infection. If you develop fever, chills, or if the area of infection is becoming rapidly more swollen or painful, call the doctor at once. TRIMETHOPRIM-SULFA: You have been given a prescription for trimethoprim-sulfa (TMS, Septra, Bactrim). This is a combination antibiotic of the sulfa class, often used for urinary tract infections, middle ear infections, bronchitis, shigella intestinal infection, and Pneumocystis pneumonia. TMS is usually well-tolerated. Occasional side effects include nausea and decreased appetite. Septra is not recommended for infants less than two months of age. Do not take this medication if you have experienced severe side effects or allergy to sulfa medicine. You should stop this medicine at once and contact your physician if you develop any rash, joint pain, shortness of breath, bruising, or jaundice (yellow color in the skin), or if you develop any other new or unusual symptoms. Cephalexin The antibiotic you've been prescribed is a member of the cephalosporin class. This type of antibiotic covers a wide variety of infections, including those of the skin, lungs, and urinary tract. It's useful for staph infections. This antibiotic is slightly similar to the penicillin family. In rare c ases, a person who is allergic to penicillin will also be allergic to this medication. If you have had a severe allergic reaction to penicillin, and have not taken this antibiotic since that time, notify your doctor. Antibiotics which cover many germs ("broad spectrum" antibiotics) are more likely to cause diarrhea or "yeast" infections. Women prone to vaginal yeast problems may suffer an attack after taking this antibiotic. In infants, oral thrush (white spots "stuck" on the cheek) or yeast diaper rash may result. See your doctor if these problems occur. Call at once if you develop itching, hives, shortness of breath, or lightheadedness. Bactroban Ointment Bactroban is very effective against the germs that cause infection within the skin. It's useful for impetigo and other superficial infections. Deeper infections require antibiotics by mouth or by shot. Apply the medicine three times a day for one week, or longer if your doctor has advised it. Stop the medicine and call your doctor if you develop large blisters, severe itching, increasing pain, swelling, fever, or spreading redness. FOLLOW-UP CARE: If you have been referred to a physician for follow-up care, call the physicians office for an appointment as you were instructed or within the next two days. If you experience worsening or a significant change in your symptoms, notify the physician immediately or return to the Emergency Department at any time for re-evaluation. Prescriptions: Sulfamethoxazole/Trimethoprim [Bactrim Ds Tablet] 1 each PO BID #20 tablet Mupirocin [Bactroban 2% Ointment 22 gm] 1 applic TP TID #1 tube Cephalexin Monohydrate [Keflex 500 mg Capsule] 500 mg PO Q6H 10 Days capsule Lisinopril 20 mg PO DAILY #30 tablet Forms: Elevated Blood Pressure, Smoking Cessation Education, Return to Work Referrals: [facility] [Provider Group] - Follow up as needed
[2019-07-06 13:53] VITALS: BP 153/85
== END 2019-07-06 13:44 | disposition home or self-care (01) ==
LOC: ER 12:04
DX: L03.315 Cellulitis of perineum (principal); F17.210 Nicotine dependence, cigarettes, uncomplicated; I10 Essential (primary) hypertension; J44.9 Chronic obstructive pulmonary disease, unspecified
CPT/HCPCS: 99282

== ENCOUNTER 2019-07-12 10:44 | Emergency (ER) | payer SELFPAY ==
[2019-07-12 10:50] VITALS: BP 159/80
--- NOTE | 2019-07-12 11:09 | ER Document Report ---
HPI - HPI Time Seen by Provider: 07/12/19 10:58 Context: CHIEF COMPLAINT: Recheck of right leg cellulitis HPI: 53-year-old male who is not diabetic presenting for recheck of a cellulitis and wound area to the right ankle. States he was here last week diagnosed with cellulitis placed on Bactrim Keflex initially but then on doxycycline which he took for a week. Patient states it does look better but he is still having pain has not yet followed up with PCP. Patient states that he did fill the Keflex and Bactrim yesterday and was going to start taking it today. He has not had fevers. ROS: See HPI - all other systems were reviewed and are otherwise negative Constitutional: no fever Integumentary: + rash Allergy: no hives Musculoskeletal: + extremity pain or swelling Neurological: no numbness/tingling, no weakness MEDICATIONS: I agree with the patient medications as charted by the RN. ALLERGIES: I agree with the allergies as charted by the RN. PAST MEDICAL HISTORY/PAST SURGICAL HISTORY: Reviewed and agree as charted by RN. SOCIAL HISTORY: Reviewed and agree as charted by RN. FAMILY HISTORY: No significant familial comorbid conditions directly related to patient complaint EXAM: Reviewed vital signs as charted by RN. CONSTITUTIONAL: Alert and oriented and responds appropriately to questions. Well-appearing; well-nourished, mild distress secondary to discomfort HEAD: Normocephalic; atraumatic EYES: Conjunctivae clear, sclerae non-icteric ENT: normal nose; no rhinorrhea; moist mucous membranes NECK: Supple without meningismus CARD: symmetric distal pulses RESP: Normal chest excursion without splinting or tachypnea ABD/GI: non-distended; soft BACK: The back appears normal EXT: Normal ROM in all joints; no cyanosis, no effusions, no edema SKIN: Normal color for age and race; warm; dry; good turgor; there is a healing granulating wound area on the medial aspect of the right ankle proximal to the medial malleolus. There is some surrounding erythema but it does not appear significantly cellulitic likely granulating. There is a small ulcerative type lesion measuring 2 cm x 1 cm that is granulating. There is a smaller wound similar to this on the lateral aspect proximal to the lateral malleolus measuring 1 cm in diameter. There is no induration or fluctuance. There is no significant surrounding erythema or increased warmth or heat suggesting a significant cellulitis. NEURO: Moves all extremities equally; Motor and sensory function intact PSYCH: The patient's mood and manner are appropriate. Grooming and personal hygiene are appropriate. MDM: 53-year-old male presenting for recheck of a wound area and cellulitis on the right ankle. He has Bactrim at home. He just finished doxycycline, he wants to start the Bactrim, will have him take 2 pills twice daily for MRSA coverage. Will refer patient for wound follow-up as is a small ulcerative lesion causing him discomfort in the medial right ankle he is taking no other medications for pain at this time. There does not appear to be a significant cellulitis surrounding the wound area he likely needs time to heal. - REPRODUCTIVE Reproductive: DENIES: : Past Medical History - Social History Smoking Status: Current Every Day Smoker Family History: Malignancy, DM, Reviewed & Not Pertinent - Past Medical History Cardiac Medical History: Reports: Hx Hypercholesterolemia, Hx Hypertension Pulmonary Medical History: Reports: Hx COPD Renal/ Medical History: Denies: Hx Peritoneal Dialysis Musculoskeletal Medical History: Reports Hx Musculoskeletal Trauma Psychiatric Medical History: Reports: Hx Anxiety, Hx Depression Traumatic Medical History: Reports: Hx Fractures - both heels Past Surgical History: Reports: Hx Orthopedic Surgery - bilateral heel surgery, reattached thumb - Immunizations Immunizations up to date: Yes Hx Diphtheria, Pertussis, Tetanus Vaccination: Yes Vertical Provider Document - INFECTION CONTROL TRAVEL OUTSIDE OF THE [place] IN LAST 30 DAYS: No Course - Vital Signs Vital signs: Temp Pulse Resp BP Pulse Ox 97.8 F 74 18 159/80 H 98 07/12/19 10:49 07/12/19 10:49 07/12/19 10:49 07/12/19 10:49 07/12/19 10:49 Discharge - Discharge Clinical Impression: Visit for wound check Condition: Stable Disposition: HOME, SELF-CARE Additional Instructions: Take the Bactrim 2 pills twice daily until the medication is finished. Follow- up with both the surgical clinic and the medical clinic for further evaluation and treatment, wash the wound area gently with soap and water apply a small amount of antibiotic ointment of your choice and a dressing until healed. This kind of wound will generally take up to 2 weeks to heal. Take tramadol and naproxen for pain do not drive if taking tramadol Prescriptions: Tramadol HCl [Ultram 50 mg Tablet] 50 mg PO Q4HP PRN #12 tab PRN Reason: Naproxen 500 mg PO BID PRN #14 tablet PRN Reason: Referrals: NATTY KHOURY MD [ACTIVE STAFF] - Follow up as needed [facility] [NO LOCAL MD] - Follow up as needed
== END 2019-07-12 11:09 | disposition home or self-care (01) ==
LOC: ER 10:44
DX: L97.319 Non-pressure chronic ulcer of right ankle with unspecified severity (principal); L03.115 Cellulitis of right lower limb; F17.200 Nicotine dependence, unspecified, uncomplicated; I10 Essential (primary) hypertension; J44.9 Chronic obstructive pulmonary disease, unspecified
CPT/HCPCS: 99283

== ENCOUNTER 2019-08-21 16:39 | Emergency (ER) | payer SELFPAY ==
[2019-08-21 16:45] VITALS: BP 155/78
[2019-08-21] MEDS ORDERED: TETRACAINE HCL 0.5% OPH SOLN 4 ML OD ONE (16:58)
--- NOTE | 2019-08-21 17:03 | ER Document Report ---
HPI - HPI Patient complains to provider of: Right eye irritation Time Seen by Provider: 08/21/19 16:55 Onset: This morning Onset/Duration: Sudden Quality of pain: Achy Pain Level: 3 Context: 53-year-old male presents to the emergency department with complaints of right eye irritation. Reports he is a no. He reports he was cutting some material yesterday when something popped up and hit him in the eye. He reports he thought he got it out. He does not wear contacts. Was not wearing protective eyewear. Reports it did not bother him afterwards. Reports probably 3 hours ago his eye started bothering. He has placed Visine drops in the eye without relief of symptoms. Denies visual disturbances. Associated Symptoms: None Exacerbated by: Denies Relieved by: Denies Similar symptoms previously: No Recently seen / treated by doctor: No - CONSTITUTIONAL Constitutional: DENIES: Fever, Chills - REPRODUCTIVE Reproductive: DENIES: : Past Medical History - General Information source: Patient - Social History Smoking Status: Current Every Day Smoker Chew tobacco use (# tins/day): No Frequency of alcohol use: None Drug Abuse: None Occupation: No Family History: Malignancy, DM, Reviewed & Not Pertinent Patient has suicidal ideation: No Patient has homicidal ideation: No - Past Medical History Cardiac Medical History: Reports: Hx Hypercholesterolemia, Hx Hypertension Pulmonary Medical History: Reports: Hx COPD Renal/ Medical History: Denies: Hx Peritoneal Dialysis Musculoskeletal Medical History: Reports Hx Musculoskeletal Trauma Psychiatric Medical History: Reports: Hx Anxiety, Hx Depression Traumatic Medical History: Reports: Hx Fractures - both heels Past Surgical History: Reports: Hx Orthopedic Surgery - bilateral heel surgery, reattached thumb - Immunizations Immunizations up to date: Yes Hx Diphtheria, Pertussis, Tetanus Vaccination: Yes Vertical Provider Document - CONSTITUTIONAL Agree With Documented VS: Yes Exam Limitations: No Limitations General Appearance: WD/WN, No Apparent Distress - INFECTION CONTROL TRAVEL OUTSIDE OF THE [place] IN LAST 30 DAYS: No - HEENT HEENT: Atraumatic, Conjuctival Injection - Right eye, Normocephalic, PERRLA - NECK Neck: Supple - RESPIRATORY Respiratory: No Respiratory Distress - CARDIOVASCULAR Cardiovascular: Regular Rate - MUSCULOSKELETAL/EXTREMETIES Musculoskeletal/Extremeties: SURI PERRY - NEURO Level of Consciousness: Awake, Alert, Appropriate Motor/Sensory: No Motor Deficit - DERM Integumentary: Warm, Dry Course - Re-evaluation Re-evalutation: 08/21/19 20:16 Eye exam completed small abrasion noted to approximately 11:00. Patient was treated with erythromycin ointment. Instructed to return for worsening symptoms concerns over vision but definitely follow-up with central office maintainer he verbalized understanding. He was also instructed on signs and symptoms of allergic reaction erythromycin. - Vital Signs Vital signs: Temp Pulse Resp BP Pulse Ox 97.6 F 64 18 155/78 H 98 08/21/19 16:44 08/21/19 16:44 08/21/19 16:44 08/21/19 16:44 08/21/19 16:44 Procedures - Eye Procedure Right Eye Irrigated w/ Saline (ccs): 20 Alcaine Drops Administered: Yes - tetracaine Fluorescein applied: Right Antibiotic Oinment/Drps Admin: Right eye Slit lamp used: No Eyes picture: 1 - right eye abrasion Discharge - Discharge Clinical Impression: Irritation of right eye Conjunctival abrasion Qualifiers: Encounter type: initial encounter Laterality: right Qualified Code(s): S05.01XA - Injury of conjunctiva and corneal abrasion without foreign body, right eye, initial encounter Condition: Stable Disposition: HOME, SELF-CARE Instructions: Antibiotic Therapy ([facility]), Erythromycin ([facility]) Additional Instructions: *You have been evaluated for eye irritation,conjunctiva abrasion *Erythromycin ointment half-inch ribbon 3 times a day to the right bottom lid for 5 days *Good hand washing *Follow up with an central office maintainer within 1 week for recheck *Return to ED for worsening condition, changes, needs, increased pain, concerns, difficulty with your vision
[2019-08-21] MEDS ORDERED: ERYTHROMYCIN 0.5% OPH OINTMENT 3.5 GM (ER DISP) OD PRN (17:20)
== END 2019-08-21 17:36 | disposition home or self-care (01) ==
LOC: ER 16:39
DX: S05.01XA Injury of conjunctiva and corneal abrasion without foreign body, right eye, initial encounter (principal); W22.8XXA Striking against or struck by other objects, initial encounter; Y93.89 Activity, other specified; I10 Essential (primary) hypertension; J44.9 Chronic obstructive pulmonary disease, unspecified; F17.200 Nicotine dependence, unspecified, uncomplicated
CPT/HCPCS: 99283; J3490

== ENCOUNTER 2019-08-21 21:41 | Emergency (ER) | payer SELFPAY ==
[2019-08-21] MEDS ORDERED: TETRACAINE HCL 0.5% OPH SOLN 4 ML OD ONE (22:39)
--- NOTE | 2019-08-21 22:40 | ER Document Report ---
ED Medical Screen (RME) - General Chief Complaint: Eye Pain Stated Complaint: RIGHT EYE PAIN Notes: Patient is a 53-year-old white male who was seen here earlier today for the same complaint of right eye pain, redness and irritation. He reports yesterday he was using a skill saw cutting some wood when he accidentally cut into a metal nail. He denies recalling anything flying into the eye or any specific injury at that time. He states gradually he began to notice some irritation of the eye. He states today it became somewhat unbearable. He came in earlier was evaluated and found to have no foreign body. He states he tried to go home and sleep but could not. He states that he was told he was not checked for metal foreign body in the eye and is requesting staining of the eye with evaluation under scoping. He denies any new injury or trauma. Denies any headache or fever. I have treated and performed a rapid initial assessment of this patient. A comprehensive ED assessment and evaluation of the patient, analysis of test results and completion of medical decision making process will be conducted by additional ED providers. PHYSICAL EXAMINATION: GENERAL: Well-appearing, well-nourished and in no acute distress. A&Ox4. Answers questions appropriately. TRAVEL OUTSIDE OF THE [place] IN LAST 30 DAYS: No - Related Data Allergies/Adverse Reactions: No Known Allergies Allergy (Verified 08/21/19 16:46) Past Medical History - Past Medical History Cardiac Medical History: Reports: Hx Hypercholesterolemia, Hx Hypertension Pulmonary Medical History: Reports: Hx COPD Renal/ Medical History: Denies: Hx Peritoneal Dialysis Musculoskeltal Medical History: Reports Hx Musculoskeletal Trauma Psychiatric Medical History: Reports: Hx Anxiety, Hx Depression Traumatic Medical History: Reports: Hx Fractures - both heels Past Surgical History: Reports: Hx Orthopedic Surgery - bilateral heel surgery, reattached thumb - Immunizations Immunizations up to date: Yes Hx Diphtheria, Pertussis, Tetanus Vaccination: Yes Physical Exam - Vital signs Vitals: Temp Pulse Resp BP Pulse Ox 97.5 F 63 16 132/81 H 95 08/21/19 22:07 08/21/19 22:07 08/21/19 22:07 08/21/19 22:07 08/21/19 22:07 Course - Vital Signs Vital signs: Temp Pulse Resp BP Pulse Ox 97.5 F 63 16 132/81 H 95 08/21/19 22:07 08/21/19 22:07 08/21/19 22:07 08/21/19 22:07 08/21/19 22:07
[2019-08-22] MEDS ORDERED: TETRACAINE HCL 0.5% OPH SOLN 4 ML OD ONE (01:02)
[2019-08-22] MEDS ORDERED: HYDROCODONE/ACETAMINOPHEN 5-325 MG (6 TAB/ER DISP) PO PRN (01:40)
[2019-08-22] MEDS ORDERED: KETOROLAC TROMETHAMINE 0.45% 4 DROP/0.4 ML DROPERETTE OD ONE (01:40)
--- NOTE | 2019-08-22 01:40 | ER Document Report ---
HPI - HPI Time Seen by Provider: 08/22/19 00:39 Pain Level: 5 Context: Patient is a 53-year-old male who presents the emergency department with a chief complaint of right eye pain. She states that he was working with wood and he chipped a piece of metal. Patient states that he feels that there is something in his right eye. He was seen in the emergency department earlier today and and was placed on erythromycin eyedrops. Patient states that pain has continued and has not gone away despite erythromycin eye ointment. - EENT EENT: REPORTS: Eye problems. DENIES: Sore Throat, Ear Pain - NEURO Neurology: DENIES: Headache, Weakness, Vision blurred, Dizzinesss / Vertigo - CARDIOVASCULAR Cardiovascular: DENIES: Chest pain - RESPIRATORY Respiratory: DENIES: Trouble Breathing, Coughing - GASTROINTESTINAL Gastrointestinal: DENIES: Abdominal Pain, Black / Bloody Stools - URINARY Urinary: DENIES: Dysuria, Urgency, Frequency - REPRODUCTIVE Reproductive: DENIES: :, Postmenopausal, Abnormal bleeding / discharge - MUSCULOSKELETAL Musculoskeletal: DENIES: Extremity pain Past Medical History - Social History Smoking Status: Current Every Day Smoker Family History: Malignancy, DM, Reviewed & Not Pertinent Patient has suicidal ideation: No Patient has homicidal ideation: No - Past Medical History Cardiac Medical History: Reports: Hx Hypercholesterolemia, Hx Hypertension Pulmonary Medical History: Reports: Hx COPD Renal/ Medical History: Denies: Hx Peritoneal Dialysis Musculoskeletal Medical History: Reports Hx Musculoskeletal Trauma Psychiatric Medical History: Reports: Hx Anxiety, Hx Depression Traumatic Medical History: Reports: Hx Fractures - both heels Past Surgical History: Reports: Hx Orthopedic Surgery - bilateral heel surgery, reattached thumb - Immunizations Immunizations up to date: Yes Hx Diphtheria, Pertussis, Tetanus Vaccination: Yes Vertical Provider Document - CONSTITUTIONAL Agree With Documented VS: Yes Exam Limitations: No Limitations General Appearance: No Apparent Distress - INFECTION CONTROL TRAVEL OUTSIDE OF THE [place] IN LAST 30 DAYS: No - HEENT HEENT: Atraumatic, Normocephalic, PERRLA - NECK Neck: Normal Inspection - RESPIRATORY Respiratory: No Respiratory Distress - CARDIOVASCULAR Cardiovascular: Regular Rate - MUSCULOSKELETAL/EXTREMETIES Musculoskeletal/Extremeties: FROM - NEURO Level of Consciousness: Awake, Alert, Appropriate Motor/Sensory: No Motor Deficit, No Sensory Deficit - DERM Integumentary: Warm, Dry Course - Re-evaluation Re-evalutation: 08/22/19 01:36 There was a small piece of metal noted in the patient's eye around the 6 o'clock position, just below his pupil. This was visualized via the slit-lamp. Negative Handy sign. Very low suspicion for a globe rupture. I first attempted to remove the piece of metal with a sterile Q-tip, but that was unsuccessful. I then took an 18-gauge needle and was able to remove the piece of metal. Patient will be started on Acular eyedrops. Will give Bylas for pain relief. He will follow-up with ophthalmology in regards to this visit. Follow-up precautions were given. Verbal discharge instructions were given to the patient. They verbalized understanding. They are stable for discharge. - Vital Signs Vital signs: Temp Pulse Resp BP Pulse Ox 97.5 F 63 16 132/81 H 95 08/21/19 22:07 08/21/19 22:07 08/21/19 22:07 08/21/19 22:07 08/21/19 22:07 Procedures - Eye Procedure Right Foreign body removal: Right Acular drops administered: Right Fluorescein applied: Right Antibiotic Oinment/Drps Admin: Right eye Slit lamp used: Yes Eyes picture: 1 - small piece of metal noted Discharge - Discharge Clinical Impression: Foreign body of eye, external, right Qualifiers: Encounter type: subsequent encounter Qualified Code(s): T15.91XD - Foreign body on external eye, part unspecified, right eye, subsequent encounter Condition: Stable Disposition: HOME, SELF-CARE Additional Instructions: You were seen today in the emergency department for a foreign body in your right eye. It was removed here in the emergency department. Please place Polytrim eyedrops to right eye 4 times a day for 7 days. Follow-up with ophthalmology on Friday. You are also being sent home with ketorolac eyedrops. You can place 1 drop to your right eye 3 times a day as needed for pain. You are being sent home with a Bylas dose pack. Please only use these for pain before you go to bed. Prescriptions: Ketorolac Tromethamine [Acular] 1 drop OD TID PRN #5 ml PRN Reason: Forms: Return to Work Referrals: YENI GONZALEZ MD [ACTIVE STAFF] - 08/23/19
[2019-08-22 02:05] VITALS: BP 147/79
[2019-08-22] MEDS ORDERED: POLYMYXIN B SULFATE/TMP OPH SOLN (10 ML/ER DISP) OD PRN (02:05)
== END 2019-08-22 02:11 | disposition home or self-care (01) ==
LOC: ER 21:41
DX: T15.91XA Foreign body on external eye, part unspecified, right eye, initial encounter (principal); X58.XXXA Exposure to other specified factors, initial encounter; I10 Essential (primary) hypertension; J44.9 Chronic obstructive pulmonary disease, unspecified; F17.200 Nicotine dependence, unspecified, uncomplicated
CPT/HCPCS: 99282; 65205; J3490 ×3

== ENCOUNTER 2020-02-10 20:44 | Emergency (ER) | payer SELFPAY ==
[2020-02-10 20:52] VITALS: BP 130/88
[2020-02-10] MEDS ORDERED: TETRACAINE HCL 0.5% OPH SOLN 4 ML OS ONE (20:59)
--- NOTE | 2020-02-10 21:02 | ER Document Report ---
ED Medical Screen (RME) - General Chief Complaint: Eye Pain Stated Complaint: EYE PAIN Time Seen by Provider: 02/10/20 20:59 Mode of Arrival: Ambulatory Information source: Patient Notes: 54-year-old male presented to ED for foreign body in left eye. He states he was working this morning when he reached up over his head and cut wall that had a nail and he said that the saw cut the nail shooting a piece into his eye. He states he did not have glasses on at the time. He states he waited till now to come into the emergency room but he needs to get this thing out of his eye before he can go back to work tomorrow. He is alert oriented respirations regular nonlabored speaking in full sentences. He does have his subconjunctival bleed noted. He states he does smoke a pack a day does not drink or do any illicit drugs he works construction. Does have a history of high blood pressure COPD kidney stones a fractured heel and thumb, L4-L5, anxiety, and depression. He states he did have a surgery of the heel and the thumb. Patient is alert oriented respirations regular nonlabored speaking in full sentences. I have greeted and performed a rapid initial assessment of this patient. A comprehensive ED assessment and evaluation of the patient, analysis of test results and completion of medical decision making process will be conducted by an additional ED providers. TRAVEL OUTSIDE OF THE [place] IN LAST 30 DAYS: No - Related Data Allergies/Adverse Reactions: No Known Allergies Allergy (Verified 08/21/19 16:46) Past Medical History - Past Medical History Cardiac Medical History: Reports: Hx Hypercholesterolemia, Hx Hypertension Pulmonary Medical History: Reports: Hx COPD Renal/ Medical History: Denies: Hx Peritoneal Dialysis Musculoskeltal Medical History: Reports Hx Musculoskeletal Trauma Psychiatric Medical History: Reports: Hx Anxiety, Hx Depression Traumatic Medical History: Reports: Hx Fractures - both heels Past Surgical History: Reports: Hx Orthopedic Surgery - bilateral heel surgery, reattached thumb - Immunizations Immunizations up to date: Yes Hx Diphtheria, Pertussis, Tetanus Vaccination: Yes Physical Exam - Vital signs Vitals: Temp Pulse Resp BP Pulse Ox 98.3 F 70 16 130/88 H 91 L 02/10/20 20:49 02/10/20 20:49 02/10/20 20:49 02/10/20 20:49 02/10/20 20:49 Course - Vital Signs Vital signs: Temp Pulse Resp BP Pulse Ox 98.3 F 70 16 130/88 H 91 L 02/10/20 20:49 02/10/20 20:49 02/10/20 20:49 02/10/20 20:49 02/10/20 20:49
== END 2020-02-11 05:39 | disposition left against medical advice (07) ==
LOC: ER 20:44
DX: Z53.20 Procedure and treatment not carried out because of patient's decision for unspecified reasons (principal); H57.12 Ocular pain, left eye; T15.92XA Foreign body on external eye, part unspecified, left eye, initial encounter; W22.8XXA Striking against or struck by other objects, initial encounter
CPT/HCPCS: 99281

== ENCOUNTER 2020-02-11 17:03 | Emergency (ER) | payer SELFPAY ==
[2020-02-11] MEDS ORDERED: TETRACAINE HCL 0.5% OPH SOLN 4 ML ONE (17:18)
[2020-02-11] MEDS ORDERED: TETRACAINE HCL 0.5% OPH SOLN 4 ML OS ONE (17:18)
--- NOTE | 2020-02-11 17:21 | ER Document Report ---
ED Medical Screen (RME) - General Chief Complaint: Eye Pain Stated Complaint: FOREIGN OBJECT IN LEFT EYE Time Seen by Provider: 02/11/20 17:13 Mode of Arrival: Ambulatory Information source: Patient Notes: 54-year-old male presented to ED for complaint of eye pain. He was seen here yesterday for yany of metal in his eye. He states he was on a wall and saw the nail and the yany of metal went in his eye. He states he stayed here for 5 hours and never got seen yesterday and now he still has pain in his eye. I did speak with the charge nurse and she has obtained him a room to be seen in. I have greeted and performed a rapid initial assessment of this patient. A comprehensive ED assessment and evaluation of the patient, analysis of test results and completion of medical decision making process will be conducted by an additional ED providers. TRAVEL OUTSIDE OF THE [place] IN LAST 30 DAYS: No - Related Data Allergies/Adverse Reactions: No Known Allergies Allergy (Verified 08/21/19 16:46) Past Medical History - Past Medical History Cardiac Medical History: Reports: Hx Hypercholesterolemia, Hx Hypertension Pulmonary Medical History: Reports: Hx COPD Renal/ Medical History: Reports: Hx Kidney Stones. Denies: Hx Peritoneal Dialysis Musculoskeltal Medical History: Reports Hx Musculoskeletal Trauma Psychiatric Medical History: Reports: Hx Anxiety, Hx Depression Traumatic Medical History: Reports: Hx Fractures - both heels Past Surgical History: Reports: Hx Orthopedic Surgery - bilateral heel surgery, reattached thumb - Immunizations Immunizations up to date: Yes Hx Diphtheria, Pertussis, Tetanus Vaccination: Yes
[2020-02-11] MEDS ORDERED: DIPH/PERTUSS(ACELL)/TETANUS VAC/PF 0.5 ML SYR (>=10YO) IM ONE (18:39)
--- NOTE | 2020-02-11 18:46 | ER Document Report ---
ED General - General Chief Complaint: Eye Pain Stated Complaint: FOREIGN OBJECT IN LEFT EYE Time Seen by Provider: 02/11/20 17:13 Mode of Arrival: Ambulatory TRAVEL OUTSIDE OF THE [place] 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 Since then the area has been very red and slightly swollen and has had a persistent foreign body sensation. He does not ordinarily wear glasses or contacts. He reports mild blurring of vision in the left eye. He has not had a tetanus booster within the last 5 years. Patient says he is otherwise healthy except for history of hypertension and he is regularly taking medication for this condition. - Related Data Allergies/Adverse Reactions: No Known Allergies Allergy (Verified 08/21/19 16:46) Past Medical History - General Information source: Patient - Social History Smoking Status: Former Smoker Frequency of alcohol use: None Drug Abuse: None Family History: Malignancy, DM, Reviewed & Not Pertinent Patient has homicidal ideation: No - Past Medical History Cardiac Medical History: Reports: Hx Hypercholesterolemia, Hx Hypertension Pulmonary Medical History: Reports: Hx COPD Renal/ Medical History: Reports: Hx Kidney Stones. Denies: Hx Peritoneal Dialysis Musculoskeletal Medical History: Reports Hx Musculoskeletal Trauma Psychiatric Medical History: Reports: Hx Anxiety, Hx Depression Traumatic Medical History: Reports: Hx Fractures - both heels Past Surgical History: Reports: Hx Orthopedic Surgery - bilateral heel surgery, reattached thumb - Immunizations Immunizations up to date: Yes Hx Diphtheria, Pertussis, Tetanus Vaccination: Yes Review of Systems - Review of Systems Notes: Constitutional: Negative for fever. HENT: Negative for sore throat. Eyes: As per HPI. Cardiovascular: Negative for chest pain. Respiratory: Negative for shortness of breath. Gastrointestinal: Negative for abdominal pain, vomiting or diarrhea. Genitourinary: Negative for dysuria. Musculoskeletal: Negative for back pain. Skin: Negative for rash. Neurological: Negative for headaches, weakness or numbness. 10 point ROS negative except as marked above and in HPI. Physical Exam - Vital signs Vitals: Temp Pulse Resp BP Pulse Ox 98.4 F 75 16 121/75 99 02/11/20 17:25 02/11/20 17:25 02/11/20 17:25 02/11/20 17:25 02/11/20 17:25 - Notes Notes: GENERAL: Well-developed well-nourished male approximately stated age who appears moderately uncomfortable. SKIN: Good turgor no rashes. HEAD: Normocephalic atraumatic. EYES: There is conjunctival injection of the affected left eye. Small area of conjunctival hemorrhage present at the 3 o'clock position adjacent to the limbus. There is no visualized foreign body with careful inspection of the eye including eversion of both upper and lower lids. PERRLA. EOMI. Conjunctivae and sclerae clear. NECK: Supple. No masses or thyromegaly. No adenopathy. Carotids 2+ without bruits. No JVD. BACK: Symmetrical without tenderness. CHEST: Respirations unlabored. Breath sounds clear and symmetrical. HEART: Regular rhythm. No murmur gallop or rub. ABDOMEN: Soft nontender without masses, organomegaly or rebound. Bowel sounds normally active. No bruits. EXTREMITIES: No edema. No calf tenderness. Cap refill less than 1.5 seconds. Dorsalis pedis and posterior tibial pulses 3+ and symmetrical. NEUROLOGICAL: Alert and oriented x3. Nonfocal. PSYCHIATRIC: Appropriate affect. Course - Re-evaluation Re-evalutation: 02/11/20 18:48 Topical anesthetic drops applied and patient symptomatically improved. Tetanus booster administered. CT of the orbit has been requested to rule out any intraocular foreign body. - Vital Signs Vital signs: Temp Pulse Resp BP Pulse Ox 98.4 F 75 16 121/75 99 02/11/20 17:25 02/11/20 17:25 02/11/20 17:25 02/11/20 17:25 02/11/20 17:25 - Diagnostic Test Radiology reviewed: Reports reviewed - Per radiologist: Orbital CT shows no retained metallic foreign body Procedures - Eye Procedure Left Time completed: 18:46 Eye Irrigated w/ Saline (ccs): 100 Alcaine Drops Administered: Yes Fluorescein applied: Left Slit lamp used: Yes Notes: 02/11/20 18:47 No foreign body present. Small corneal abrasion 3 o'clock position. No streaming. Visual acuity 20/20 right 20/40 left 20/30 both. Discharge - Discharge Clinical Impression: Corneal abrasion left eye Condition: Stable Disposition: HOME, SELF-CARE Additional Instructions: Corneal Abrasion You have a corneal abrasion, a scratch on the surface of the eye. The pain of a corneal abrasion feels like a sharp particle in the eye. Usually, antibiotics are placed in the eye to prevent infection. Occasion ally, medication will be placed in the eye to dilate the pupil. This is done to relieve some of your discomfort and is only temporary. Pain medication may be required. Don't drive or operate machinery until you have the use of both your eyes. The abrasion usually is healed in one or two days. A follow-up examination to confirm healing is recommended. Call the doctor or return at once if you develop severe pain, decreasing vision, eye swelling, or purulent drainage. Use prescribed medications as directed Follow-up within the next 3 to 4 days with an group president. You may return here as needed for new or worsening symptoms. Prescriptions: Tramadol HCl [Ultram 50 mg Tablet] 50 mg PO Q4HP PRN #12 tab PRN Reason: Cyclopentolate HCl [Cyclogyl 1% Oph Soln 2 ml] 1 drop OP TID 3 Days #1 bottle Polymyxin B Sulfate/Tmp [Polytrim Oph Soln 10 ml] 1 dose OP ASDIR PRN #1 bottle PRN Reason: Referrals: YENI GONZALEZ MD [ACTIVE STAFF] - Follow up as needed
--- NOTE | 2020-02-11 19:35 | RADIOLOGY REPORT (SQ) ---
EXAM DESCRIPTION: [facility]: CT ORBITS WITHOUT IV CONTRAST CLINICAL HISTORY: 54 years Male; ? metallic FB left globe; TECHNIQUE: High resolution axial CT of the orbits without contrast, with sagittal and coronal reformatted images. All CT scans at this facility use dose modulation, iterative reconstruction, and/or weight based dosing when appropriate to reduce radiation dose to as low as reasonably achievable. COMPARISON: None. FINDINGS: No acute periorbital fracture. No retro-orbital edema. Extraocular muscles are symmetric. There is chronic leftward nasal septal deviation. Patchy mucosal thickening in the ethmoid air cells and frontal sinuses. No sinus air-fluid levels. No mastoid effusion. No hyperdense foreign bodies. IMPRESSION: 1. No metallic foreign bodies 2. Mild mucosal thickening in the ethmoid air cells and frontal sinuses 3. No acute findings
[2020-02-11] MEDS ORDERED: TRAMADOL HCL 50 MG TABLET PO ONE (19:42)
[2020-02-11 20:06] VITALS: BP 148/83
== END 2020-02-11 20:07 | disposition home or self-care (01) ==
LOC: ER 17:03
DX: S05.02XA Injury of conjunctiva and corneal abrasion without foreign body, left eye, initial encounter (principal); W20.8XXA Other cause of strike by thrown, projected or falling object, initial encounter; Y93.89 Activity, other specified; I10 Essential (primary) hypertension; J44.9 Chronic obstructive pulmonary disease, unspecified; Z23 Encounter for immunization; Z87.891 Personal history of nicotine dependence
CPT/HCPCS: 99284; 90471; 70480; 90715; J3490